=== PATIENT | female | born 1950 | race Caucasian/White ===

== ENCOUNTER 2018-06-18 08:50 | Outpatient (REF) | payer MEDICARE, BC, SELFPAY ==
[2018-06-18 17:17] LABS: Anion Gap 10.8 mmol/L (3-11); BUN 11 mg/dL (7-18); CO2 26.2 mmol/L (21.0-32.0); CREATININE 0.72 mg/dL (0.55-1.02); Chloride 100 mmol/L (98-107); Cholesterol 269 mg/dL (50-200); Glucose 103 mg/dL (70-100); HDL Cholesterol 57 mg/dL (40-60); LDL CHOLESTEROL 189 mg/dL (<100); Potassium 4.3 mmol/L (3.5-5.1); Sodium 137 mmol/L (136-145); Triglyceride 91 mg/dL (30-150)
== END 2018-06-18 09:10 ==
LOC: NCHCN 08:50
PROVIDERS: PCP Internal Medicine; Visit Provider Internal Medicine
DX: E78.5 Hyperlipidemia, unspecified (principal); R73.03 Prediabetes
CPT/HCPCS: 80048; 80061; 83721

== ENCOUNTER 2018-06-30 00:21 | Outpatient (CLI) | payer MEDICARE, BC, SELFPAY ==
--- NOTE | 2018-06-30 09:26 | DI.RAD_ITS ---
SYMPTOMS/DIAGNOSIS: DYSPHAGIA, PHARYNGEAL PHASE, R13.13 BARIUM SWALLOW AND PA AND LATERAL CHEST: Fluoroscopy Time: 1.13 min/sec Routine examination was performed. CHEST X-RAY: Chest x-ray was performed. The heart size and pulmonary vasculature are within normal limits. The lungs appear clear. No effusions or pneumothoraces are identified. Age-appropriate degenerative changes are seen in the spine. IMPRESSION: No acute pulmonary process. BARIUM SWALLOW: Barium swallow was performed according to protocol. No gastroesophageal reflux or aspiration was noted during the examination. There is mild narrowing in the proximal esophagus. This appears to be due to the extrinsic effect of the aortic arch. Note is made of a large hiatal hernia. The hypopharynx appears grossly unremarkable. No ulcers or strictures are seen. No extrinsic masses are identified. IMPRESSION: 1. No evidence of gastroesophageal reflux or aspiration. 2. Mild narrowing in the proximal esophagus due to the mass effect of the aortic arch. 3. Moderately large hiatal hernia.
--- NOTE | 2018-06-30 09:49 | DI.RAD_ITS ---
SYMPTOMS/DIAGNOSIS: LT ANKLE PAIN, M25.572 LEFT ANKLE: Three views. No acute fracture or dislocation is identified. The articular surfaces appear well maintained. The bones are normally mineralized. The soft tissues are unremarkable. There is a small plantar calcaneal spur. IMPRESSION: No acute abnormality.
== END 2018-06-30 00:41 ==
PROVIDERS: PCP Internal Medicine; Visit Provider Internal Medicine
DX: R13.13 Dysphagia, pharyngeal phase (principal); K44.9 Diaphragmatic hernia without obstruction or gangrene; M25.572 Pain in left ankle and joints of left foot; M77.32 Calcaneal spur, left foot
CPT/HCPCS: 73610; 74220

== ENCOUNTER 2019-12-06 13:26 | Outpatient (REF) | payer MEDICARE, BC, SELFPAY ==
[2019-12-06 21:00] LABS: Anion Gap 5.3 mmol/L (3-11); BUN 10 mg/dL (7-18); CO2 30.7 mmol/L (21.0-32.0); CREATININE 0.78 mg/dL (0.55-1.02); Calcium 9.5 mg/dL (8.5-10.1); Chloride 103 mmol/L (98-107); Glucose 82 mg/dL (74-106); Potassium 5.5 mmol/L (3.5-5.1); Sodium 139 mmol/L (136-145)
[2019-12-06 21:31] LABS: Hemoglobin A1C 5.7 % (<5.7)
== END 2019-12-06 13:46 ==
LOC: NCHCN 13:26
PROVIDERS: PCP Internal Medicine; Visit Provider Internal Medicine
DX: R73.03 Prediabetes (principal); E78.5 Hyperlipidemia, unspecified; E66.9 Obesity, unspecified
CPT/HCPCS: 80048; 83036

== ENCOUNTER 2019-12-13 08:04 | Outpatient (REF) | payer MEDICARE, BC, SELFPAY ==
[2019-12-13 21:50] LABS: Potassium 5.3 mmol/L (3.5-5.1)
== END 2019-12-13 08:24 ==
LOC: NCHCN 08:04
PROVIDERS: PCP Internal Medicine; Visit Provider Internal Medicine
DX: R79.9 Abnormal finding of blood chemistry, unspecified (principal)
CPT/HCPCS: 84132

== ENCOUNTER 2020-06-21 11:10 | Outpatient (REF) | payer MEDICARE, BC, SELFPAY ==
[2020-06-21 14:22] LABS: Anion Gap 8.6 mmol/L (3-11); BUN 15 mg/dL (7-18); CO2 27.4 mmol/L (21.0-32.0); CREATININE 0.7 mg/dL (0.55-1.02); Calcium 9.3 mg/dL (8.5-10.1); Chloride 102 mmol/L (98-107); Glucose 97 mg/dL (74-106); Potassium 4.7 mmol/L (3.5-5.1); Sodium 138 mmol/L (136-145)
== END 2020-06-21 11:11 | disposition home or self-care (01) ==
LOC: NCHCN 11:10
PROVIDERS: PCP Internal Medicine; Visit Provider Internal Medicine
DX: E87.5 Hyperkalemia (principal)
CPT/HCPCS: 80048

== ENCOUNTER 2020-11-23 20:25 | Outpatient (CLI) | payer MEDICARE, BC, SELFPAY ==
--- NOTE | 2020-11-23 11:16 | DI.RAD_ITS ---
Exam(s) XR KNEE RT 3V AP,LAT,CROW EXAM: XR KNEE RT 3V AP,LAT,CROW CLINICAL HISTORY: RT JOINT KNEE PAIN M25.561, WEIGHT BEARING TECHNIQUE: COMPARISON: No exams were available for comparison FINDINGS: Three views were obtained. There is moderate narrowing of the medial tibiofemoral cartilaginous join t space. Otherwise cartilaginous joint spaces appear fairly well maintained. There appears to be a small knee joint effusion. There are mild marginal osteophytes of the joints of the knee, most prominent at the medial tibiofemo ral joint. No other significant bony abnormality seen. IMPRESSION: DJD predominantly involving medial tibiofemoral joint. RADIATION DOSE DELIVERED: Total DLP
== END 2020-11-23 20:45 ==
PROVIDERS: PCP Internal Medicine; Visit Provider Family Medicine
DX: M25.561 Pain in right knee (principal); M25.461 Effusion, right knee; M17.11 Unilateral primary osteoarthritis, right knee
CPT/HCPCS: 73562

== ENCOUNTER 2021-09-18 09:12 | Outpatient (REF) | payer MEDICARE, BC, SELFPAY ==
[2021-09-18 15:29] LABS: HCT 43.2 % (36.0-46.0); HGB 13.9 g/dL (11.2-15.7); MCH 29.7 pg (27.0-33.0); MCHC 32.2 % (32.0-36.0); MCV 92 fL (80-95); MPV 9.6 fL (8.0-11.0); Platelet Count 269 10^3/uL (130-400); RBC 4.68 10^6/uL (3.93-5.22); RDW 12.3 % (11.7-14.6); RDW-SD 41.8 fL; WBC 5.45 10^3/uL (4.4-10.8)
[2021-09-18 15:45] LABS: ALT 77 U/L (14-59); AST 24 U/L (15-37); Alkaline Phosphatase 144 U/L (46-116); Anion Gap 3.7 mmol/L (3-11); BUN 15 mg/dL (7-18); Bilirubin, Total 0.5 mg/dL (0.2-1.0); CO2 30.3 mmol/L (21.0-32.0); CREATININE 0.8 mg/dL (0.55-1.02); Calcium 9.6 mg/dL (8.5-10.1); Calculated LDL 181 mg/dL (<100); Chloride 103 mmol/L (98-107); Cholesterol 265 mg/dL (<200); Glucose 100 mg/dL (74-106); HDL Cholesterol 59 mg/dL (40-60); Potassium 5.5 mmol/L (3.5-5.1); Sodium 137 mmol/L (136-145); Total Protein 7.6 g/dL (6.4-8.2); Triglyceride 127 mg/dL (<150)
== END 2021-09-18 09:13 | disposition home or self-care (01) ==
LOC: NCHCN 09:12
PROVIDERS: PCP Family Medicine; Visit Provider Family Medicine
DX: R73.03 Prediabetes (principal); E78.5 Hyperlipidemia, unspecified; E66.9 Obesity, unspecified
CPT/HCPCS: 80053; 80061; 85027

== ENCOUNTER → 2021-10-21 09:25 | Outpatient (BNVA) | payer MEDICARE, BC, SELFPAY | PROVIDERS: PCP Family Medicine; Referring Provider Family Medicine; Visit Provider Student in an Organized Health Care Education/Training Program | DX: R68.89 Other general symptoms and signs (principal); M17.11 Unilateral primary osteoarthritis, right knee | CPT/HCPCS: 99203 ==

== ENCOUNTER 2021-12-03 12:13 | Outpatient (REF) | payer MEDICARE, BC, SELFPAY ==
[2021-12-03 15:00] LABS: Abs Immature Grans 0.02 10^3/uL (0.0-0.06); Absolute Basophil Count 0.05 10^3/uL (0.0-0.2); Absolute Eosinophil Count 0.17 10^3/uL (0.0-0.7); Absolute Lymphocyte Count 1.11 10^3/uL (1.2-3.4); Absolute Monocyte Count 0.42 10^3/uL (0.1-0.8); Absolute Neutrophil Count 5.27 10^3/uL (1.2-6.7); Basophils % 0.7; Eosinophils % 2.4; HCT 43.6 % (36.0-46.0); HGB 14.3 g/dL (11.2-15.7); Immature Grans % 0.3; Lymphocytes % 15.8; MCHC 32.8 % (32.0-36.0); MCV 91 fL (80-95); MPV 9.8 fL (8.0-11.0); Neutrophils % 74.8; Platelet Count 215 10^3/uL (130-400); RBC 4.77 10^6/uL (3.93-5.22); RDW 12.8 % (11.7-14.6); RDW-SD 42.6 fL; WBC 7.04 10^3/uL (4.4-10.8)
[2021-12-03 15:47] LABS: ALT 594 U/L (14-59); AST 310 U/L (15-37); Alkaline Phosphatase 274 U/L (46-116); Anion Gap 9.6 mmol/L (3-11); BUN 11 mg/dL (7-18); Bilirubin, Direct 4.2 mg/dL (0.0-0.2); Bilirubin, Total 5.3 mg/dL (0.2-1.0); CO2 26.4 mmol/L (21.0-32.0); CREATININE 0.7 mg/dL (0.55-1.02); Calcium 9.6 mg/dL (8.5-10.1); Chloride 102 mmol/L (98-107); Estimated GFR 91.26 (mL/min/1.73m2); Glucose 125 mg/dL (74-106); Potassium 4.2 mmol/L (3.5-5.1); Sodium 138 mmol/L (136-145); Total Protein 7.4 g/dL (6.4-8.2)
[2021-12-04 10:46] LABS: Hepatitis A Antibody IgM Negative (Negative); Hepatitis B Core Antibody Negative (Negative); Hepatitis B surface Ag Negative (Negative); Hepatitis C Ab w Rflx HCV PCR Negative (Negative)
== END 2021-12-03 12:14 | disposition home or self-care (01) ==
LOC: LBN 12:13
PROVIDERS: PCP Family Medicine; Visit Provider Family Medicine
DX: R17 Unspecified jaundice (principal); R10.11 Right upper quadrant pain
CPT/HCPCS: 80053; 86704; 86709; 86803; 87340; 82248; 85025

== ENCOUNTER → 2021-12-06 00:40 | Outpatient (CLI) | payer MEDICARE, BC, SELFPAY ==
--- NOTE | 2021-12-06 | DI.US_ITS ---
Exam(s) US ABDOMEN LIMITED EXAM: US ABDOMEN LIMITED CLINICAL HISTORY: RUQ PAIN, JAUNDICE, R10.11,R17,DIARRHEA TECHNIQUE: Ultrasound abdomen performed using standard protocol. COMPARISON: No exams were available for comparison FINDINGS: There is no ascites evident. LIVER: Liver is hyperechoic indicating steatosis. No discrete focal identified GALLBLADDER/BILIARY: There are shadowing gallstones noted. Gallbladder wall thickness slightly incre ased. No pericholecystic evident. The common hepatic duct ismildly dilated, measuring 7-8mm at the level of roberta hepatis. PANCREAS: There is no evidence of pancreatic mass nor dilatation of the pancreatic duct. RIGHT KIDNEY:No evidence of solid mass, calculus, nor hydronephrosis. No cortical cysts evident. IMPRESSION: 1. There is cholelithiasis. Multiple shadowing gallstones noted. Gallbladder wall thickness is min imally prominent. Common hepatic duct is slightly dilated. Recommend follow-up CT scan to ensure th at there are no calculi in the lower CBD. 2. Hepatic steatosis noted. Correlation appropriate hepatic blood work noted. No discrete focal he patic lesions identified. 3. There is no ascites. DATA REPOSITORY:
--- OUTSIDE RECORDS SUMMARY | 2021-12-06 00:46 | XMS_ITS | Encounter Summary ---
:1950 Author Organization [place] [place] [address] Care Team Providers Name Role Phone López Gilliland MD Primary Care Provider Encounter Details Date Type Department Care Team Description 12/22/2018 Office [place] [facility], Gastroesophageal reflux dise ase, esophagitis presence not specified; [facility] Roscoe Ceballos MD [place] [address] [facility] [phone] [place] [address] Social History Tobacco Use Types Packs/Day Years Used Date Former Smoker Smokeless Tobacco: Never Used Comments: quit in 1977 Alcohol Use Standard Drinks/Week Comments Yes 0 (1 standard drink = 0.6 oz pure alcoho l) 5 drinks per weeks Alcohol Habits Answer Date Recorded How often do you have a drink containing alcohol? Not asked How many drinks containing alcohol do you have on a Not aske d typical day when you are drinking? How often do you have six or more drinks on one Not asked occasion? Comment: 5 drinks per weeks 11/23/2018 Sex Assigned at Date Recorded Not on file documented as of this encounter Last Filed Vital Signs Vital Sign Reading Time Taken Comments Blood Pressure 138/68 12/22/2018 8:51 AM EDT Pulse 67 12/22/2018 8:51 AM EDT Temperature - - Respiratory Rate - - Oxygen Saturation - - Inhaled Oxygen Concentration - - Weight 91.4 kg (201 lb 6.4 oz) 12/22/2018 8:51 AM EDT Height 162.6 cm (5' 4) 12/22/2018 8:51 AM EDT Body Mass Index 34.57 12/22/2018 8:51 AM EDT documented in this encounter Progress Notes Rebel Gongora MD - 12/22/2018 9:00 AM EDT HISTORY: Zoraida Arciniega presents for consultation and further evaluation of GERD and Tony's esophagus No history of pyrosis or regurgitation Had some throat gagging sensation which produced an upper endoscopy and barium swallow The barium swallow showed a large hiatal hernia, and impression of the aortic arch on the mid esophagus. She has difficulty with dry food and occasional emesis from swallows, and has gagging at times. Water or liquid swallows help clear her sensation of food not passing No description of aspiration or penetration on the barium study She then had upper endoscopy. This showed long-segment Tony's, in the 12 cm range Biopsies did NOT show dysplasia She had some Dong erosions in the area of the hiatal hernia No change of weight or appetite Never had colonoscopy Has had stool heme testing She was adopted so does not know family history There is no problem list on file for this patient. PHYSICAL EXAM: Most Recent Vitals: 12/22/18 0851 BP: 138/68 Pulse: 67 NAD IMPRESSION: We spent the session discussing the role of treatments of GERD and Tony's. She has not had symptoms, so cannot relate PPI use to any changes. She agrees to stay on acid suppression. We reviewed the evidence of efficacy and safety. We also discussed the potential role of Lorenzo fundoplication. Covered the reasons that endoscopic treatments would not be indicated given the Tony's and the large hiatal hernia. Discussed the rationale for Tony's surveillance. Reviewed current guidelines. Will review with Dr. Corona his concerns on follow-up interval. Will also couple the next upper endoscopy with colonoscopy screening which she has not yet had. We reviewed the role of colonoscopy and she will do this at next endoscopy interval. 30 of 40 minutes spent in direct [id number] counseling and the rest in taking history. PLAN: Upper endoscopy and colonoscopy with IVCS in one year Continue PPIs Rebel Ceballos. 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
--- OUTSIDE RECORDS SUMMARY | 2021-12-06 00:46 | XMS_ITS | Encounter Summary ---
:1950 Author Organization [facility] [place] [address] Care Team Providers Name Role Phone López Gilliland MD Primary Care Provider Encounter Details Date Type Department Care Team Description 06/01/2020 Hospital Encounter Mammography/DXA at L[facility] Gill[facility] Encounter for [facility] MD Ramos screening mammogram [facility] [address] [place] [id number] [phone] Social History Tobacco Use Types Packs/Day Years Used Date Former Smoker Smokeless Tobacco: Never Used Comments: quit in 1977 Alcohol Use Standard Drinks/Week Comments Yes 1 (1 standard drink = 0.6 oz pure alcoho l) Sex Assigned at Date Recorded Not on file documented as of this encounter Medications at Time of Discharge Medication Sig Dispensed Refills Start Date End Date pantoprazole EC (Protonix) Take 1 tablet by 180 tablet 3 40 mg Tablet, Delayed mouth 2 times daily Release (E.C.)Indications: (before meals). Gastroesophageal reflux disease, esophagitis presence not specified ARIPiprazole (ABILIFY) 5 0 12/11/2016 mg Tablet pindolol (VISKEN) 5 mg Take 5 mg by mouth 2 0 Tablet times daily. venlafaxine (EFFEXOR-XR) Take 300 mg by mouth 0 0 12/11/2016 150 mg Capsule, Sust. daily. Release 24 hr fluocinonide (LIDEX) 0.05 Apply to scalp 60 mL 2 2016 % SolutionIndications: nightly for 1-2 Prurigo nodularis weeks. Then 1-2x per week as maintenance if needed. documented as of this encounter Plan of Treatment Not on filedocumented as of this encounter Procedures Procedure Name Priority Date/Time Associated Diagnosis Comme nts MAMMO SCREENING CAD Routine 06/01/2020 10:45 AM Encounter for Results for this AND DELFINO BILATERAL EST screening mammogram pr ocedure are in for breast cancer the result s section. documented in this encounter Results Mammo Screening Cad and Delfino Bilateral (06/01/2020 10:45 AM EST) Anatomical Region Laterality Modality Breast Bilateral Mammography Specimen (Source) Anatomical Location Collection Method / Collectio n Time Received Time / Laterality Volume Narrative 06/01/2020 10:54 AM EST REASON FOR EXAM: Screening. History of left breast cancer. TECHNIQUE: CC and MLO views were obtaine d of both breasts. Computer aided detection was used. 3D tomosynthesis natali ges were obtained in addition to 2D images. Comparison: The study is compared with p emersonr images. FINDINGS: Breast density: The breasts are heteroge neously dense, which may obscure small masses. There are no suspicious microcalcificati ons, masses, or areas of distortion. There are post treatment changes in the left breast. Stable coarse dystrophic calcifications and retained staple noted unchanged. CONCLUSION: No mammographic evidence of malignancy. RECOMMENDATION: Routine screening. BIRADS CATEGORY 2: BENIGN FINDINGS * ??Regular screening mammograms startin g between age 40 and 50 reduces the risk of from breast cancer. * ??All screening tests have both risks and benefits. These risks and benefits should be assessed for each individual p atient through discussion with their provider to determine their preferred [facility] screening schedule. * ??Women should report any breast smart es to a health care provider right away. * ??Some women, because of their family history, a genetic tendency, or other factors, should be screened with annual breast MRI as well as with mammograms. (The number of women who fall into this category is very small). Patients and health care providers should discuss eac h patients history to decide if earlier screening and/or breast MRI are appropri ate. * ??Screening should continue as long as a woman is in good health and is expected to live 10 years or longer. * ??Screening mammography may not detect 10-15% of breast cancers. Thank you for letting us participate in the care of this patient. For questions regarding this report, please contact e number below. ? López Gilliland MD IMG MAMMO ORDERABLES documented in this encounter Visit Diagnoses Diagnosis Encounter for screening mammogram for br east cancer documented in this encounter Care Teams Stonecutter Apprentice Hand Relationship Specialty Start Date End Date López Gilliland MD PCP - General 02/12/10 05/23/21 [address] [place] [address] documented as of this encounter
--- OUTSIDE RECORDS SUMMARY | 2021-12-06 00:46 | XMS_ITS | Encounter Summary ---
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 (last EGD 11/23/2018), screening colonoscopy (IVCS) Procedures PRO UPPER GI ENDOSCOPY, DIAGNOSTIC PRO COLONOSCOPY, DIAGNOSTIC EGD, UPPER GI ENDOSCOPY COLONOSCOPY, DIAGNOSTIC Referral ID Status Reason Start Date Expiration Date Visits Requ ested Visits Authorized [id number] 1 1 Encounter Details Date Type Department Care Team Description 12/27/2019 [place] [facility] Corona, [place]ONOSCOPY, [facility] Roscoe [place] [address] [facility] [phone] [place], [place] [address] Social History Tobacco Use Types Packs/Day Years Used Date Former Smoker Smokeless Tobacco: Never Used Comments: quit in 1977 Alcohol Use Standard Drinks/Week Comments Yes 1 (1 standard drink = 0.6 oz pure alcoho l) Sex Assigned at Date Recorded Not on file documented as of this encounter Last Filed Vital Signs Vital Sign Reading Time Taken Comments Blood Pressure 129/64 12/27/2019 12:00 PM EDT Pulse 63 12/27/2019 12:00 PM EDT Temperature 36.3 ??C (97.3 ??F) 12/27/2019 9:58 AM EDT Respiratory Rate 13 12/27/2019 12:00 PM EDT Oxygen Saturation 95% 12/27/2019 12:00 PM EDT Inhaled Oxygen Concentration - - Weight - - Height - - Body Mass Index - - documented in this encounter Discharge Instructions Discharge InstructionsOscar Laird RN - 12/27/2019 12:34 PM EDT Upper GI Endoscopy: What to Expect at Home Your Recovery You will be able to go home after your doctor or nurse checks to make sure you are not having any problems. You may have to stay overnight if you had treatment during the test. You may have a sore throat for a day or two after the test. This care sheet gives you a general idea about what to expect after the test. How can you care for yourself at home? Activity Rest when you feel tired. ?? You can do your normal activities when it feels okay to do so. Diet ?? Follow your doctor's directions for eating. ?? Unless your doctor has told you not to, drink plenty of fluids. This helps to replace the fluidsthat were lost during the prep. ?? Do not drink alcohol. Medicines ?? Your doctor will tell you if and when you can restart your medicines. He or she will also give you instructions about taking any new medicines. ?? If you take blood thinners, such as warfarin (Coumadin), clopidogrel (Plavix), or aspirin, be sure to talk to your doctor. He or she will tell you if and when to start taking those medicines again.Make sure that you understand exactly what your doctor wants you to do. ?? If polyps were removed or a biopsy was done during the test, your doctor may tell you not to take aspirin or other anti-inflammatory medicines for a few days. These include ibuprofen (Advil, Motrin) and naproxen (Aleve). ?? If you have a sore throat the day after the procedure, use an bfam-qtu-twgbvcz spray to numb yourthroat. Sucking on throat lozenges and gargling with warm salt water may also help relieve your symptoms. Other instructions ?? For your safety, do not drive or operate machinery until the medicine wears off and you can think clearly. Your doctor may tell you not to drive or operate machinery until the day after your test. ?? Do not sign legal documents or make major decisions until the medicine wears off and you can think clearly. The anesthesia can make it hard for you to fully understand what you are agreeing to. Additional Information for Sedation Patients For patients who received sedation: ?? You may have received medications before and/or during your procedure which effects your judgement and reaction time. ?? Do not drive, operate machinery, drink alcoholic beverages or make important decisions for 24 hours. ?? Be careful on stairs as you may be unsteady on your feet. ?? You may eat a regular diet as tolerated. ?? Do not smoke if you are alone. ?? IV site: Slight redness or tenderness is normal, you can use a warm compress if you would like. If tenderness and/or redness increase or if foul drainage occurs, please contact your Doctor. Please call [phone] before 8pm Mon-Fri with problems, questions or concerns. If you call after 8pm or on weekends, call the Hospital at [phone] and ask to speak to the [employer] director of aviation and the slitter and cutter operator will contact that person for you. When should you call for help? Call [phone] anytime you think you may need emergency care. For example, call if: ?? You passed out (lost consciousness). ?? You pass maroon or bloody stools. ?? You have trouble breathing. Call your doctor now or seek immediate medical care if: ?? You have pain that does not get better after you take pain medicine. ?? You are sick to your stomach or cannot drink fluids. ?? You have new or worse belly pain. ?? You have blood in your stools. ?? You have a fever. ?? You cannot pass stools or gas. Watch closely for changes in your health, and be sure to contact your doctor if you have any problems. Where can you learn more? [facility] View your After Visit Summary and more online at [email or web address] If you would like to provide feedback about your hospital experience, please call the Office of Patient and Family Relations at . If you have received this After Visit Summary in error, please immediately return it in person to the department, or notify the [facility] Privacy Office by calling toll free at between the hours of 8AM and 5PM to arrange for our retrieval of the documents at no cost to you. Content Version: 12.2 ?? [id number] [employer]. Care instructions adapted under license by [facility]. If you have questions about a medical condition or this instruction, always ask your healthcare professional. [employer] disclaims any warranty or liability for your use of this information. Colonoscopy: What to Expect at Home Your Recovery Your doctor will talk to you about when you will need your next colonoscopy. Your doctor can help you decide how often you need to be checked. This will depend on the results of your test and your riskfor colorectal cancer. After the test, you may be bloated or have gas pains. You may need to pass gas. If a biopsy was doneor a polyp was removed, you may have streaks of blood in your stool (feces) for a few days. Problemssuch as heavy rectal bleeding may not occur until several weeks after the test. This isn't common. But it can happen after polyps are removed. This care sheet gives you a general idea about how long it will take for you to recover. But each person recovers at a different pace. Follow the steps below to get better as quickly as possible. How can you care for yourself at home? Activity Rest when you feel tired. ?? You can do your normal activities when it feels okay to do so. Diet ?? Follow your doctor's directions for eating. ?? Unless your doctor has told you not to, drink plenty of fluids. This helps to replace the fluidsthat were lost during the colon prep. ?? Do not drink alcohol. Medicines ?? Your doctor will tell you if and when you can restart your medicines. He or she will also give you instructions about taking any new medicines. ?? If you take blood thinners, such as warfarin (Coumadin), clopidogrel (Plavix), or aspirin, be sure to talk to your doctor. He or she will tell you if and when to start taking those medicines again.Make sure that you understand exactly what your doctor wants you to do. ?? If polyps were removed or a biopsy was done during the test, your doctor may tell you not to take aspirin or other anti-inflammatory medicines for a few days. These include ibuprofen (Advil, Motrin) and naproxen (Aleve). Other instructions ?? For your safety, do not drive or operate machinery until the medicine wears off and you can think clearly. Your doctor may tell you not to drive or operate machinery until the day after your test. ?? Do not sign legal documents or make major decisions until the medicine wears off and you can think clearly. The anesthesia can make it hard for you to fully understand what you are agreeing to. Additional Information for Sedation Patients For patients who received sedation: ?? You may have received medications before and/or during your procedure which effects your judgement and reaction time. ?? Do not drive, operate machinery, drink alcoholic beverages or make important decisions for 24 hours. ?? Be careful on stairs as you may be unsteady on your feet. ?? You may eat a regular diet as tolerated. ?? Do not smoke if you are alone. ?? IV site: Slight redness or tenderness is normal, you can use a warm compress if you would like. If tenderness and/or redness increase or if foul drainage occurs, please contact your Doctor. Please call [phone] before 8pm Mon-Fri with problems, questions or concerns. If you call after 8pm or on weekends, call the Hospital at [phone] and ask to speak to the [employer] Professor director of aviation and the slitter and cutter operator will contact that person for you. When should you call for help? Call [phone] anytime you think you may need emergency care. For example, call if: ?? You passed out (lost consciousness). ?? You pass maroon or bloody stools. ?? You have trouble breathing. Call your doctor now or seek immediate medical care if: ?? You have pain that does not get better after you take pain medicine. ?? You are sick to your stomach or cannot drink fluids. ?? You have new or worse belly pain. ?? You have blood in your stools. ?? You have a fever. ?? You cannot pass stools or gas. Watch closely for changes in your health, and be sure to contact your doctor if you have any problems. Where can you learn more? [facility] View your After Visit Summary and more online at [email or web address] If you would like to provide feedback about your hospital experience, please call the Office of Patient and Family Relations at . If you have received this After Visit Summary in error, please immediately return it in person to the department, or notify the [facility] Privacy Office by calling toll free at between the hours of 8AM and 5PM to arrange for our retrieval of the documents at no cost to you. Content Version: 12.2 ?? [id number] [employer]. Care instructions adapted under license by [facility]. If you have questions about a medical condition or this instruction, always ask your healthcare professional. [employer] disclaims any warranty or liability for your use of this information. documented in this encounter Medications at Time of Discharge [...] if needed. documented as of this encounter H&P Notes Oscar Corona MD - 12/27/2019 11:01 AM EDT Patient Name: Zoraida Arciniega Patient Age: 69 y.o. Birthdate: 1950 Admit date: 12/27/2019 Attending Physician: Oscar Corona MD Gastroenterology and Hepatology Pre-Procedure History and Physical Exam Procedure: EGD and colonoscopy Indication: Tony's surveillance and average risk colon cancer screening There is no problem list on file for this patient. EXAM: HEENT: Airway examined, oropharynx clear Mallampati Score: I (soft palate, uvula, fauces, tonsillar pillars visible) LUNGS: Clear to auscultation HEART: Regular rate and rhythm, normal S1, S2 ABDOMEN: Normal bowel sounds, soft, non tender, non distended, A/P Proceed with the planned endoscopic procedure. ASA 1 - Normal health patient Sedation Plan: moderate (conscious sedation) Risks and benefits of the procedure explained to the patient. Consent signed. documented in this encounter Plan of Treatment Not on filedocumented as of this encounter Procedures Procedure Name Priority Date/Time Associated Diagnosis Comme nts SPECIMEN TO Routine 12/27/2019 12:14 Results for this PATHOLOGY PM EDT procedure are i n the results section. SPECIMEN TO Routine 12/27/2019 12:14 Results for this PATHOLOGY PM EDT procedure are i n the results section. SPECIMEN TO Routine 12/27/2019 12:14 Results for this PATHOLOGY PM EDT procedure are i n the results section. SPECIMEN TO Routine 12/27/2019 12:14 Results for this PATHOLOGY PM EDT procedure are i n the results section. SPECIMEN TO Routine 12/27/2019 12:14 Results for this PATHOLOGY PM EDT procedure are i n the results section. SPECIMEN TO Routine 12/27/2019 12:14 Results for this PATHOLOGY PM EDT procedure are i n the results section. SPECIMEN TO Routine 12/27/2019 12:14 Results for this PATHOLOGY PM EDT procedure are i n the results section. SURGICAL PATHOLOGY Routine 12/27/2019 11:56 Resul ts for this REPORT AM EDT procedure are i n the results section. EGD WITH BIOPSY 12/27/2019 11:21 long segment (WRVU 2.49) AM EDT Tony's (last EGD 11/23/2018), screening colonoscopy (IVCS) COLONOSCOPY, 12/27/2019 11:21 long segment DIAGNOSTIC AM EDT Tony's (last EGD 11/23/2018), screening colonoscopy (IVCS) UPPER GI ENDOSCOPY Routine 12/27/2019 11:11 Resul ts for this AM EDT procedure are i n the results section. COLONOSCOPY Routine 12/27/2019 11:11 Results for this AM EDT procedure are i n the results section. documented in this encounter Results Specimen to Pathology (12/27/2019 12:14 PM EDT) Specimen Anatomical Collection Method Collection Time Receive d Time (Source) Location / / Volume Laterality AP Specimen 12/27/2019 12:14 12/27/2019 PM EDT 12:14 PM EDT Narrative [facility] 12/27/2019 12:14 PM EDT Specimen requisition ordered. ??Separate Pathology report to follow Oscar Corona MD PATHOLOGY/CYTOLOGY ORDERABLE S Performing Organization Address City/State/[place] [address] Specimen to Pathology (12/27/2019 12:14 PM EDT) Specimen Anatomical Collection Method Collection Time Receive d Time (Source) Location / / Volume Laterality AP Specimen 12/27/2019 12:14 12/27/2019 PM EDT 12:14 PM EDT Narrative [facility] - 12/27/2019 12:14 PM EDT Specimen requisition ordered. ??Separate Pathology report to follow Oscar Corona MD PATHOLOGY/CYTOLOGY ORDERABLE S Performing Organization Address City/State/[place] [address] Specimen to Pathology (12/27/2019 12:14 PM EDT) Specimen Anatomical Collection Method Collection Time Receive d Time (Source) Location / / Volume Laterality AP Specimen 12/27/2019 12:14 12/27/2019 PM EDT 12:14 PM EDT Narrative [facility] [place] - 12/27/2019 12:14 PM EDT Specimen requisition ordered. ??Separate Pathology report to follow Oscar Corona MD PATHOLOGY/CYTOLOGY ORDERABLE S Performing Organization Address City/State/[place] [address] Specimen to Pathology (12/27/2019 12:14 PM EDT) Specimen Anatomical Collection Method Collection Time Receive d Time (Source) Location / / Volume Laterality AP Specimen 12/27/2019 12:14 12/27/2019 PM EDT 12:14 PM EDT Narrative [facility] - 12/27/2019 12:14 PM EDT Specimen requisition ordered. ??Separate Pathology report to follow Oscar Corona MD PATHOLOGY/CYTOLOGY ORDERABLE S Performing Organization Address City/State/[place] [address] Specimen to Pathology (12/27/2019 12:14 PM EDT) Specimen Anatomical Collection Method Collection Time Receive d Time (Source) Location / / Volume Laterality AP Specimen 12/27/2019 12:14 12/27/2019 PM EDT 12:14 PM EDT Narrative [facility] - 12/27/2019 12:14 PM EDT Specimen requisition ordered. ??Separate Pathology report to follow Oscar Corona MD PATHOLOGY/CYTOLOGY ORDERABLE S Performing Organization Address City/State/[place] [address] Specimen to Pathology (12/27/2019 12:14 PM EDT) Specimen Anatomical Collection Method Collection Time Receive d Time (Source) Location / / Volume Laterality AP Specimen 12/27/2019 12:14 12/27/2019 PM EDT 12:14 PM EDT Narrative [facility] [place] - 12/27/2019 12:14 PM EDT Specimen requisition ordered. ??Separate Pathology report to follow Oscar Corona MD PATHOLOGY/CYTOLOGY ORDERABLE S Performing Organization Address City/State/[place] [address] Specimen to Pathology (12/27/2019 12:14 PM EDT) Specimen Anatomical Collection Method Collection Time Receive d Time (Source) Location / / Volume Laterality AP Specimen 12/27/2019 12:14 12/27/2019 PM EDT 12:14 PM EDT Narrative [facility] - 12/27/2019 12:14 PM EDT Specimen requisition ordered. ??Separate Pathology report to follow Oscar Corona MD PATHOLOGY/CYTOLOGY ORDERABLE S Performing Organization Address City/State/[place] [address] Surgical Pathology Report (12/27/2019 11:56 AM EDT) Component Value Ref Test Analysis Performed At [facility] Range Method Time Signature Surgical [id number] ? Location: 4T; EA09; [facility] Report The signing pathologist has (i) examined the relevant preparation(s) for the [facility] specimen(s) and (ii) rendered or confirmed the diagnosis(es) . H[facility]PITAL LAB[facility]ORY . 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 B - Esophagus at 31-30 cm, biopsy: Tony's esophagus with focal acute inflammation, negative for dysplasia. C - Esophagus at 29-28 cm, biopsy: Tony's esophagus with focal acute inflammation, negative for dysplasia. D - Esophagus at 27-26 cm, biopsy: Tony's esophagus, negative for dysplasia. E - Esophagus at 25-24 cm, biopsy: Tony's esophagus, negative for dysplasia. F - Esophagus at 23-22 cm, biopsy: Tony's esophagus, negative for dysplasia. G - Esophagus at 21 cm, biopsy: Tony's esophagus, negative for dysplasia. Electronically signed by: ??Joseph CANO PhD, Lorelei Verified: ??01/02/2020 ?Pathologist Performed at: ??-[facility] [place]. [place], [place], [place] SPECIMEN(S) SUBMITTED A - esophagus at 33-32 cm, biopsy (Multiple) B - esophagus at 31-30 cm, biopsy (Multiple) C - esophagus at 29-28 cm, biopsy (Multiple) D - esophagus at 27-26 cm, biopsy (Multiple) E - esophagus at 25-24 cm, biopsy (Multiple) F - esophagus at 23-22 cm, biopsy (Multiple) G - esophagus at 21 cm, biopsy (Multiple) CLINICAL INFORMATION EGD long segment Tony's surveillance SPECIMEN PROCESSING A - Labeled/Fixative: Esophagus at 33-32 cm, formalin. Quantity/Size: Two, averaging 0.3 cm. Tissue Description: Soft, red-garcia tissues. Sections/Processing: Submitted en toto ??in 1 cassette labeled A1. B - Labeled/Fixative: Esophagus at 31-30 cm, formalin. Quantity/Size: Four, 0.2-0.3 cm. Tissue Description: Soft, red-garcia tissues. Sections/Processing: Submitted en toto ??in 1 cassette labeled B1. C - Labeled/Fixative: Esophagus at 29-28 cm, formalin. Quantity/Size: Three, and 0.3-0.4 cm. Tissue Description: Soft, red-garcia tissues. Sections/Processing: . SPECIMEN PROCESSING Submitted en toto ??in 1 cassette labeled C1. D - Labeled/Fixative: Esophagus at 27-26 cm, formalin. Quantity/Size: Two, averaging 0.4 cm. Tissue Description: Soft, red-garcia tissues. Sections/Processing: Submitted en toto ??in 1 cassette labeled D1. E - Labeled/Fixative: Esophagus at 25-24 cm, formalin. Quantity/Size: Three, 0.3-0.4 cm. Tissue Description: Soft, red-garcia tissues. Sections/Processing: Submitted en toto ??in 1 cassette labeled E1. F - Labeled/Fixative: Esophagus at 23-22 cm, formalin. Quantity/Size: Single, 0.5 x 0.3 x 0.1 cm. Tissue Description: Soft, red-garcia tissue. Sections/Processing: Submitted en toto ??in 1 cassette labeled F1. G - Labeled/Fixative: Esophagus at 21 cm, formalin. Quantity/Size: Two, 0.3-0.4 cm. Tissue Description: Soft, garcia-pink tissues. Sections/Processing: Submitted en toto ??in 1 cassette labeled G1. ??hmg Specimen (Source) Anatomical Collection Method Collection Time Re ceived Time Location / / Volume Laterality 12/27/2019 11:56 AM EDT Oscar Corona MD PATHOLOGY/CYTOLOGY ORDERABLE S Performing Organization Address City/State/[place] [address] UPPER GI ENDOSCOPY (12/27/2019 11:11 AM EDT) Component Value Ref Test Analysis Performed At [facility] Range Method Time Signature UPPER GI [facility] ENDOSCOPY Endoscopy Procedure Date: 12/27/2019 11:11 AM ? Patient Name: Zoraida Arciniega ? Date of : 1950 ? Age: 69 ? Order #: [id number] ? Instrument Name: [id number] ? Procedure: ? Upper GI endoscopy Indications: ? Surveillance for malignancy due to ? 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 Oscar Corona, Tirso Arias , ? Dianelys PETERS Referring MD: ? Medicines: ? Fentanyl 150 micrograms IV, Midazo green ? 3 mg IV Complications: ? No immediate complications. Procedure: ? Pre-Anesthesia Assessment: ? - See the other procedure not e for ? documentation of the pre-proc edure ? assessment. ? The procedure, indications, b enefits, ? risks and alternatives were e xplained ? to the patient. Specifically ? discussed were potential ? complications including, but not ? limited to, bleeding, perfora tion, ? infection, missing a cancer, and ? adverse medication reactions. The ? Endoscope was introduced thro ugh the ? mouth, and advanced to the. T he ? patient tolerated the procedu re well. ? The upper GI endoscopy was ? accomplished without difficul ty. The ? patient tolerated the procedu re well. ? Findings: ? Esophagogastric landmarks were identified: the Z-line ? was found at 21 cm, the gastroesophageal junction was ? found at 33 cm and the site of hiatal narrowing was ? found at 37 cm from the incisors. ? The esophagus and gastroesophageal junction were ? examined with white light and NBI. There were ? esophageal mucosal changes consistent with long ? segment Tony's - classified as Tony's stage ? C8-M12 per [place] criteria. These changes involved ? the mucosa extending to the Z-line. Mucosa was ? biopsied with a cold forceps for histology in 4 ? quadrants at intervals of 2 cm. ? 4 cm hiatal hernia ? The entire examined stomach was normal. ? The examined duodenum was normal. ? Moderate Sedation: ? I was present during the intraservice time as ? documented by the sedation RN. Impression: ?- Esophagogastric landmarks ? identified. ? - Esophageal mucosal changes ? classified as Tony's stage C8-M12 ? per [place] criteria. Biopsied . ? - Normal stomach. ? - Normal examined duodenum. Recommendation: ?Colonoscopy next. ? Attending Participation: ? I personally performed the entire procedure. ? Oscar Corona Oscar Corona, 12/27/2019 11:54:32 AM Number of Addenda: 0 Note Initiated On: 12/27/2019 11:11 AM Specimen (Source) Anatomical Collection Method Collection Time Re ceived Time Location / / Volume Laterality 12/27/2019 11:11 AM EDT Unknown GENERAL SURGICAL ORDERABLES Performing Organization Address City/State/ZIP Code Phon e Number [facility] COLONOSCOPY (12/27/2019 11:11 AM EDT) [facility] gist Method Time Signature COLONOSCOPY [facility] Endoscopy Procedure Date: 12/27/2019 11:11 AM ? Patient Name: Zoraida Arciniega ? Date of : 1950 ? Age: 69 ? Order #: [id number] ? Instrument Name: [id number] ? Procedure: ? Colonoscopy Indications: ? Screening for colorectal malignant ? neoplasm Providers: ? Oscar Corona, Tirso Arias , ? FRAN, Dianelys Damon Referring MD: ? Medicines: ? Midazolam 1 mg IV, Fentanyl 100 ? micrograms IV Complications: ? No immediate complications. Procedure: ? Pre-Anesthesia Assessment: ? - See the other procedure not e for ? documentation of the pre-proc edure ? assessment. ? The procedure, indications, b enefits, ? risks and alternatives were e xplained ? to the patient. Specifically ? discussed were potential ? complications including, but not ? limited to, bleeding, perfora tion, ? infection, missing a cancer, and ? adverse medication reactions. The ? patient was placed in the lef t ? lateral decubitus position, a nd a ? digital rectal exam was perfo rmed. ? The Colonoscope was inserted in the ? anus and under direct visuali zation, ? advanced to the cecum, identi fied by ? appendiceal orifice and ileoc ecal ? valve. Careful inspection was made as ? the colonoscope was withdrawn . The ? colonoscopy was performed wit hout ? difficulty. The patient sophy ated the ? procedure well. The quality o f the ? bowel preparation was evaluat ed using ? the BBPS ([place] Bowel Prepar ation ? Scale) with scores of: Right Colon = ? 3, Transverse Colon = 3 and L eft ? Colon = 3 (entire mucosa seen well ? with no residual staining, sm all ? fragments of stool or opaque liquid). ? The total BBPS score equals 9 . ? Withdrawal time was 7 minutes . ? Findings: ? The colon (entire examined portion) appeared normal. ? The retroflexed view of the distal rectum and anal ? verge was normal and showed no anal or rectal ? abnormalities. ? Moderate Sedation: ? I was present during the intraservice time as ? documented by the sedation RN. Impression: ?- The entire examined colon is nor mal. ? - The distal rectum and anal verge ? are normal on retroflexion vi ew. ? - No specimens collected. Recommendation: ?- Discharge patient to home. ? - Patient has a contact numbe r ? available for emergencies. Th e signs ? and symptoms of potential del ayed ? complications were discussed with the ? patient. Return to normal act ivities ? tomorrow. Written discharge ? instructions were provided to the ? patient. ? - Full liquid diet today give n ? extensive esophageal biopsies ? - I will arrange follow-up ? - Repeat colonoscopy in 10 ye ars if ? appropriate based on overall health. ? Attending Participation: ? I personally performed the entire procedure. ? Oscar Corona Oscar Corona, 12/27/2019 12:23:23 PM Number of Addenda: 0 Note Initiated On: 12/27/2019 11:11 AM Specimen (Source) Anatomical Collection Method Collection Time Re ceived Time Location / / Volume Laterality 12/27/2019 11:11 AM EDT Unknown GENERAL SURGICAL ORDERABLES Performing Organization Address City/State/ZIP Code Phon e Number PROVATION documented in this encounter Visit Diagnoses Not on filedocumented in this encounter Administered Medications Inactive Administered Medications - up to 3 most recent administrations Medication Order MAR Action Action Date Dose Rate Site fentaNYL 50 mcg/mL multi-dose Given 12/27/2019 12:02 PM EDT 50 m cg injection ONCE PRN, Starting on 10/6/20 at 1123, Until 12/27/19 at 1520, Intra-Operative (Intra-Procedure), Routine Given 12/27/2019 11:51 AM EDT 50 mcg Given 12/27/2019 11:29 AM EDT 50 mcg lactated ringers infusion New Bag 12/27/2019 10:08 AM EDT 100 mL/hr 100 mL/hr 100 mL/hr, Intravenous, CONTINUOUS, Starting on 12/27/19 at 1015, Until 12/27/19 at 1320, Endoscopy (Day of Procedure) midazolam (PF) (VERSED) multi-dose injec tion Given 12/27/2019 11:51 AM EDT 1 mg ONCE PRN, Starting on 12/27/19 at 1123, Until 12/27/19 at 1520, Intra-Operative (Intra-Procedure), Routine Given 12/27/2019 11:29 AM EDT 1 mg Given 12/27/2019 11:26 AM EDT 1 mg documented in this encounter Active and Recently Administered Medications Times are shown in EDT. Continuous Medication Order 12/25/2019 12/26/2019 12/27/2019 lactated ringers infusion (CANCELED) 1008 (New Bag - Provider: Donnell Lamb RN) 100 mL/hr, at 100 mL/hr, Intravenous, CO NTINUOUS, Starting 12/27/19 at 1015, Until 12/27/19 at 1320, Endo (Day of Procedure) PRN Medication Order 12/25/2019 12/26/2019 12/27/2019 fentaNYL 50 mcg/mL multi-dose injection (CANCELED) 1123 (Given - Provider: Tirso Arias RN - Comment: start moderate sedation)1126 (Given - Provider: Tirso Arias RN - Comment: awake and alert after 1st dose and 3 minutes)1129 (Given - Provider: Tirso Arias RN - Comment: sleepy but awake) ONCE PRN, Starting 12/27/19 at 1123, Until 12/27/19 at 1520, Intra- Operative (Intra-Procedure), Routine 115 1 (Given - Provider: Tirso Arias RN - Comment: given in preparation of colonoscopy)1202 (Given - Provider: Tirso Arias RN - Comment: grimmace and startled awake by cramp) midazolam (PF) (VERSED) multi-dose injection (CANCELED) 1123 (Given - Provider: Tirso Arias RN - Comment: see fentanyl same time)1126 (Given - Provider: Tirso Arias RN - Comment: see fentanyl same time)1129 (Given - Provider: Tirso Arias RN - Comment: see fentanyl same time) ONCE PRN, Starting 12/27/19 at 1123, Until Thu12/27/19 at 1520, Intra- Operative (Intra-Procedure), Routine 115 1 (Given - Provider: Tirso Arias RN - Comment: see fentanyl same time) documented in this encounter Care Teams Scratcher Relationship Specialty Start Date End Date López Gilliland MD PCP - General 02/12/10 05/23/[address] [id number] documented as of this encounter
--- OUTSIDE RECORDS SUMMARY | 2021-12-06 00:46 | XMS_ITS | Encounter Summary ---
:1950 Author Organization [facility] Address [facility] [place] [address] Care Team Providers Name Role Phone López Gilliland MD Primary Care Provider Reason for Visit Auth/Cert Specialty Diagnoses / Procedures Referred By Contact Refer red To Contact Diagnoses Dysphagia dysphagia Procedures PRO UPPER GI ENDOSCOPY, DIAGNOSTIC EGD, UPPER GI ENDOSCOPY Referral ID Status Reason Start Date Expiration Date Visits Requ ested Visits Authorized [id number] 1 1 Encounter Details Date Type Department Care Team Description 11/23/2018 Surgery G[facility]ology at [place] Oscar Corona, EGD, UPPER GI [facility] [place]coe [place] [address] [facility] [phone] [place], [place] [address] Social History Tobacco Use Types [...] Sign Reading Time Taken Comments Blood Pressure 137/110 11/23/2018 10:00 AM EDT Pulse 74 11/23/2018 9:45 AM EDT Temperature 37.4 ??C (99.3 ??F) 11/23/2018 8:23 AM EDT Respiratory Rate 16 11/23/2018 10:00 AM EDT Oxygen Saturation 94% 11/23/2018 10:00 AM EDT Inhaled Oxygen Concentration - - Weight - - Height - - Body Mass Index - - documented in this encounter Discharge Instructions Discharge InstructionsNay Mir RN - 11/23/2018 9:56 AM EDT UPPER GI ENDOSCOPY WHAT TO EXPECT AFTER THE PROCEDURE After the test you may feel a little more gassy or bloated than usual, this is normal. ACTIVITY Because of the sedation that you received Your judgement and reaction time are affected ?? Go home and rest quietly for the remainder of the day. You may resume your normal activities tomorrow. ?? Change from one position to the next slowly. You may lose your balance unexpectedly Be careful on stairs, as you may be unsteady on your feet. FOR THE NEXT 24 HRS ?? DO NOT DRIVE OR OPERATE ANY MACHINERY ?? DO NOT DRINK ALCOHOLIC BEVERAGES ?? DO NOT SIGN LEGAL DOCUMENTS ?? If you are a smoker: DO NOT SMOKE WHILE YOU ARE ALONE Diet ?? Start by eating small portions of foods that ordinarily will not upset your stomach. Be gentle with what you choose to start with. ?? Drink plenty of fluids ( unless otherwise told not to) Medications You may have a mild sore throat. Ice chips, popsicles, over the counter throat lozenges or spray may help numb your throat. This procedure should not cause a fever. IV SITE-- slight redness or tenderness is normal, you can use warm compresses if you get concerned.If the tenderness +/or redness increases or foul drainage and a red streak occurs, please contact your PCP immediately. WHEN SHOULD YOU CALL FOR HELP? Call 911 anytime you think that you need emergency care. For example, call if: You passed out (lost consciousness). You cough up blood. You vomit blood or what looks like coffee grounds. You pass maroon or very bloody stools. Call your healthcare provider or seek immediate medical attention if: You have trouble swallowing. You have belly pain. Your stools are black or tarlike or have streaks of blood. You are sick to your stomach or cannot keep fluids down. Watch closely for changes in your health, and be sure to contact your doctor IF Your throat still hurts after a day or two You do not get better as expected. Thursday-Thursday Same Day Endo [phone] 7a-8p Otherwise contact [phone] and ask to speak to the youth ministry director slot machine key person Follow-up care is a torre part of your treatment and safety. Be sure to make and go to all appointments, and call your doctor if you are having problems. Instructions have been reviewed and patient expresses understanding documented in this encounter Medications at Time of Discharge Medication Sig Dispensed Refills Start Date End Date ARIPiprazole (ABILIFY) 0 12/11/2016 5 mg Tablet pindolol (VISKEN) 5 mg Take 5 mg by mouth 2 0 Tablet times daily. venlafaxine Take 300 mg by mouth 0 12/11/2016 (EFFEXOR-XR) 150 mg daily. Capsule, Sust. Release 24 hr fluocinonide (LIDEX) Apply to scalp 60 mL 2 12/24/2016 0.05 % nightly for 1-2 SolutionIndications: weeks. Then 1-2x per Prurigo nodularis week as maintenance if needed. pantoprazole (PROTONIX) Take 1 tablet by 180 tablet 3 201811/14/2019 40 mg Tablet, Delayed mouth 2 times daily Release (E.C.) (before meals). omeprazole (PRILOSEC) Take 20 mg by mouth 0 09/2712/27/2019 20 mg Capsule, Delayed as needed. Release(E.C.) fish oil-omega-3 fatty Take 2 g by mouth 0 12/27/2019 acids 1,000 mg Capsule daily. CIS Free Text Med - 0 06/26/200512/26 Baby ASA (aspirin) CIS Free Text Med - 0 06/26/200512/26 Effexor documented as of this encounter H&P Notes Oscar Corona MD - 11/23/2018 9:14 AM EDT Patient Name: Zoraida Arciniega Patient Age: 68 y.o. Birthdate: 1950 Admit date: 11/23/2018 Attending Physician: Oscar Corona MD Gastroenterology and Hepatology Pre-Procedure History and Physical Exam Procedure: EGD: Indication: Dysphagia. There is no problem list on file for this patient. EXAM: HEENT: Airway examined, oropharynx clear Mallampati Score: II (soft palate, uvula, fauces visible) LUNGS: Clear to auscultation HEART: Regular [...] encounter Procedures Procedure Name Priority Date/Time Associated Comments Diagnosis SURGICAL PATHOLOGY Routine 11/23/2018 9:47 Result s for this REPORT AM EDT procedure are i n the results section. SPECIMEN TO PATHOLOGY Routine 11/23/2018 9:47 Res ults for this AM EDT procedure are i n the results section. SPECIMEN TO PATHOLOGY Routine 11/23/2018 9:47 Res ults for this AM EDT procedure are i n the results section. SPECIMEN TO PATHOLOGY Routine 11/23/2018 9:47 Res ults for this AM EDT procedure are i n the results section. SPECIMEN TO PATHOLOGY Routine 11/23/2018 9:47 Res ults for this AM EDT procedure are i n the results section. SPECIMEN TO PATHOLOGY Routine 11/23/2018 9:47 Res ults for this AM EDT procedure are i n the results section. SPECIMEN TO PATHOLOGY Routine 11/23/2018 9:47 Res ults for this AM EDT procedure are i n the results section. SPECIMEN TO PATHOLOGY Routine 11/23/2018 9:47 Res ults for this AM EDT procedure are i n the results section. SPECIMEN TO PATHOLOGY Routine 11/23/2018 9:47 Res ults for this AM EDT procedure are i n the results section. UPPER GASTROINTESTINAL 11/23/2018 9:17 Esophageal ENDOSCOPY,WITH BIOPSY AM EDT dysphagia SINGLE OR MULTIPLE (WRVU 2.49) EGD, UPPER GI ENDOSCOPY 11/23/2018 9:17 Esophageal AM EDT dysphagia UPPER GI ENDOSCOPY Routine 11/23/2018 9:12 Result s for this AM EDT procedure are i n the results section. documented in this encounter Results Surgical Pathology Report (11/23/2018 9:47 AM EDT) Component Value Ref Test Analysis Performed At [facility] gist Range Method Time Signature Surgical [id number] ? Location: 4T; EA06; [facility] Pathology ISABELLA Report The signing pathologist has (i) examined the relevant preparation(s) for the [facility] specimen(s) and (ii) rendered or confirmed the diagnosis(es) . H[facility] . ?Surgic al Pathology DIAGNOSIS A - Esophageal, 33-31 cm, biopsy: Columnar mucosa with metapla stic goblet cells, consistent with specialized Wheeler's metaplasia if supported by corresponding endoscopic finding s. No dysplasia is seen. B - Stomach, biopsy: Gastric antral and fundic gland mucosa within normal limits. No H. pylori-like microorganism is seen. C - Stomach, erosion, biopsy: Gastric fundic mucosa with focal erosion. D - Esophagus 31-29 cm, biopsy: Columnar mucosa with metapla stic goblet cells, consistent with specialized Wheeler's metaplasia if supported by corresponding endoscopic finding s. No dysplasia is seen. E - Esophagus 29-27 cm, biopsy: Columnar mucosa with metapla stic goblet cells, consistent with specialized Wheeler's metaplasia if supported by corresponding endoscopic finding s. No dysplasia is seen. F - Esophagus 27-25 cm, biopsy: Columnar mucosa with metapla stic goblet cells, consistent with specialized Wheeler's metaplasia if supported by corresponding endoscopic finding s. No dysplasia is seen. Additional levels examined. G - Esophagus 25-23 cm, biopsy: Squamous esophageal and spec ialized metaplastic columnar mucosa consistent with specialized Wheeler metapla ariadna if supported by corresponding endoscopic findings. No dysplasia is seen. Additional levels examined. H - Esophagus 23-21 cm, biopsy: Columnar mucosa with ulcerat ion, granulation tissue, fibrinopurulent exudate and bacterial colonization. Columnar mucosa with metaplastic goblet cells, no dysplasia is seen. Squamous esophageal mucosa with hyperplastic basal layer and scattered intraepithelial eosinophils, suggestive of reflux esophagit is. Electronically signed by: ??Minerva Wilson MD Verified: ??11/25/2018 ?Pathologist Performed at: ??[facility], [place], [place] CLINICAL INFORMATION Specimen Submitted: A - Esophagel bx, 33-31cm ? wheeler's, 4 B - Gastric bx r/o h pylori,3 C - Gastric bx for dong erosin,2 D - Esophagel bx 31-29cm,4 E - Esophageal bx 29-27cm,4 F - Esophageal bx 27-25cm,4 . CLINICAL INFORMATION G - Esophageal bx 25-23cm,3 H - Esophageal bx 23-21cm,3 Clinical History and Diagnosis: 68-year-old female with history of dysphagia SPECIMEN PROCESSING A - Labeled/Fixative: Esophageal BX 33-31 cm question Eder t's, formalin. Quantity/Size: Two, averaging 0.3 cm. Tissue Description: Soft, pink-red tissues. Sections/Processing: Submitted en toto ??in 1 cassette labeled A1. B - Labeled/Fixative: Gastric BX R/O H pylori, formalin. Quantity/Size: Two, averaging 0.4 cm. Tissue Description: Soft, pink tissues. Sections/Processing: Submitted en toto ??in 1 cassette labeled B1. C - Labeled/Fixative: Gastric BX for Dong erosion, formal in. Quantity/Size: Two, averaging 0.3 cm. Tissue Description: Soft, garcia tissues. Sections/Processing: Submitted en toto ??in 1 cassette labeled C1. D - Labeled/Fixative: Esophageal BX 31-29 cm, formalin. Quantity/Size: Three, averaging 0.3 cm. Tissue Description: Soft, red tissues. Sections/Processing: Submitted en toto ??in 1 cassette labeled D1. E - Labeled/Fixative: Esophageal BX 29-27 cm, formalin. Quantity/Size: Four, averaging 0.2 cm. Tissue Description: Soft, pink tissues. Sections/Processing: Submitted en toto ??in 1 cassette labeled E1. F - Labeled/Fixative: Esophageal BX 27-25 cm, formalin. Quantity/Size: Four, averaging 0.2 cm. Tissue Description: Soft, pink-red tissues. Sections/Processing: Submitted en toto ??in 1 cassette labeled F1. G - Labeled/Fixative: Esophageal BX 25-23 cm, formalin. Quantity/Size: Two, averaging 0.3 cm. Tissue Description: Soft, pink-red tissues. Sections/Processing: Submitted en toto ??in 1 cassette labeled G1. H - Labeled/Fixative: Esophageal BX 23-21 cm, formalin. Quantity/Size: Four, averaging 0.2 cm. Tissue Description: Soft, pink-white tissues. Sections/Processing: Submitted en toto ??in 1 cassette labeled H1. ??sns Specimen (Source) Anatomical Collection Method Collection Time Re ceived Time Location / / Volume Laterality 11/23/2018 9:47 AM EDT Oscar Corona MD PATHOLOGY/CYTOLOGY ORDERABLE S Performing Organization Address City/[facility] [place] [id number] Specimen to Pathology (11/23/2018 9:47 AM EDT) Specimen Anatomical Collection Method Collection Time Receive d Time (Source) Location / / Volume Laterality AP Specimen 11/23/2018 9:47 AM 9 EDT 11:39 AM EDT Narrative [facility] - 11/23/2018 11:39 AM EDT Specimen requisition ordered. ??Separate Pathology report to follow Resulting Agency Comment Spec In Lab Oscar Corona MD PATHOLOGY/CYTOLOGY ORDERABLE S Performing Organization Address City/[facility]/[place] [id number] Specimen to Pathology (11/23/2018 9:47 AM EDT) Specimen Anatomical Collection Method Collection Time Receive d Time (Source) Location / / Volume Laterality AP Specimen 11/23/2018 9:47 AM 9 EDT 11:39 AM EDT Narrative [facility] - 11/23/2018 11:39 AM EDT Specimen requisition ordered. ??Separate Pathology report to follow Resulting Agency Comment Spec In Lab Oscar Corona MD PATHOLOGY/CYTOLOGY ORDERABLE S Performing Organization Address City/[facility]/[place] [id number] Specimen to Pathology (11/23/2018 9:47 AM EDT) Specimen Anatomical Collection Method Collection Time Receive d Time (Source) Location / / Volume Laterality AP Specimen 11/23/2018 9:47 AM 9 EDT 11:39 AM EDT Narrative [facility] [place] 11/23/2018 11:39 AM EDT Specimen requisition ordered. ??Separate Pathology report to follow Resulting Agency Comment Spec In Lab Oscar Corona MD PATHOLOGY/CYTOLOGY ORDERABLE S Performing Organization Address City/[facility]/[place] [id number] Specimen to Pathology (11/23/2018 9:47 AM EDT) Specimen Anatomical Collection Method Collection Time Receive d Time (Source) Location / / Volume Laterality AP Specimen 11/23/2018 9:47 AM 9 EDT 11:39 AM EDT Narrative [facility] [place] 11/23/2018 11:39 AM EDT Specimen requisition ordered. ??Separate Pathology report to follow Resulting Agency Comment Spec In Lab Oscar Corona MD PATHOLOGY/CYTOLOGY ORDERABLE S Performing Organization Address City/[facility] [place] [id number] Specimen to Pathology (11/23/2018 9:47 AM EDT) Specimen Anatomical Collection Method Collection Time Receive d Time (Source) Location / / Volume Laterality AP Specimen 11/23/2018 9:47 AM 9 EDT 11:39 AM EDT Narrative [facility] [place] 11/23/2018 11:39 AM EDT Specimen requisition ordered. ??Separate Pathology report to follow Resulting Agency Comment Spec In Lab Oscar Corona MD PATHOLOGY/CYTOLOGY ORDERABLE S Performing Organization Address City/[facility]/[place] [id number] Specimen to Pathology (11/23/2018 9:47 AM EDT) Specimen Anatomical Collection Method Collection Time Receive d Time (Source) Location / / Volume Laterality AP Specimen 11/23/2018 9:47 AM 9 EDT 11:39 AM EDT Narrative [facility] [place] 11/23/2018 11:39 AM EDT Specimen requisition ordered. ??Separate Pathology report to follow Resulting Agency Comment Spec In Lab Oscar Corona MD PATHOLOGY/CYTOLOGY ORDERABLE S Performing Organization Address City/[facility]/[place] [id number] Specimen to Pathology (11/23/2018 9:47 AM EDT) Specimen Anatomical Collection Method Collection Time Receive d Time (Source) Location / / Volume Laterality AP Specimen 11/23/2018 9:47 AM 9 EDT 11:39 AM EDT Narrative [facility] [place] 11/23/2018 11:39 AM EDT Specimen requisition ordered. ??Separate Pathology report to follow Resulting Agency Comment Spec In Lab sOcar Corona MD PATHOLOGY/CYTOLOGY ORDERABLE S Performing Organization Address City/[facility]/[place] [id number] Specimen to Pathology (11/23/2018 9:47 AM EDT) Specimen Anatomical Collection Method Collection Time Receive d Time (Source) Location / / Volume Laterality AP Specimen 11/23/2018 9:47 AM 9 EDT 11:39 AM EDT Narrative [facility] - 11/23/2018 11:39 AM EDT Specimen requisition ordered. ??Separate Pathology report to follow Resulting Agency Comment Spec In Lab Oscar Corona MD PATHOLOGY/CYTOLOGY ORDERABLE S Performing Organization Address City/[facility]/[place] [id number] UPPER GI ENDOSCOPY (11/23/2018 9:12 AM EDT) [facility] Method Time Signature UPPER GI [facility] ENDOSCOPY Endoscopy Procedure Date: 11/23/2018 9:12 AM ? Patient Name: Zoraida Arciniega ? Date of : 1950 ? Age: 68 ? Order #: [id number] ? Instrument Name: [id number] ? Procedure: ? Upper GI endoscopy Indications: ? Dysphagia Providers: ? Razia Chin , ? RN, Nazia Helms Referring : ?López Gilliland MD Medicines: ? Midazolam 3 mg IV, Fentanyl 150 ? micrograms IV Complications: ? No immediate [...] ugh the ? mouth, and advanced to the se cond ? part of duodenum. The patient ? tolerated the procedure well. The ? upper GI endoscopy was accomp lished ? without difficulty. The patie nt ? tolerated the procedure well. ? Findings: ? Wheeler's esophagus was present in the mid esophagus. ? The maximum longitudinal extent of these mucosal ? changes was 12 cm in length. (C12M12) (spanned 33cm ? to 21 cm). Mucosa was biopsied with a cold forceps ? for histology in 4 quadrants at intervals of 2 cm. ? Estimated blood loss was minimal. ? Fundic erosion in stomach adjacent to 2 cm hiatal ? hernia - biopsies taken of lesion and randomly to ? look for H.pylori. ? Moderate Sedation: ? I was present during the intraservice time as ? documented by the sedation RN. Impression: ?- Long-segment Wheeler's esophagus . ? Biopsied. ? 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 ? - Start Pantoprazole 40 mg OD ? - Return to [facility] with Tr bev ? Hilda AVENDANO ? - I will contact you with bio psies ? results ? - Depending on results you wi ll be ? scheduled for a repeat EGD wi th me ? Attending Participation: ? I personally performed the entire procedure. ? Oscar Corona Oscar Corona, 11/23/2018 9:54:32 AM Number of Addenda: 2 Note Initiated On: 11/23/2018 9:12 AM Addendum Number: 1 ?? Addendum Date: 11/23/2018 10:10:36 AM ? Oscar Corona Oscar Corona, 11/23/2018 10:10:45 AM Addendum Number: 2 ?? Addendum Date: 11/23/2018 10:10:55 AM ? SimonBill Corona Oscar Grant Cj, 11/23/2018 10:11:01 AM Specimen (Source) Anatomical Collection Method Collection Time Re ceived Time Location / / Volume Laterality 11/23/2018 9:12 AM EDT López Gilliland MD GENERAL SURGICAL ORDERABLES Performing Organization Address City/State/ZIP Code Phon e Number [facility] documented in this encounter Visit Diagnoses Diagnosis Esophageal dysphagia Dysphagia, pharyngoesophageal phase documented in this encounter Administered Medications Inactive Administered Medications - up to 3 most recent administrations Medication Order MAR Action Action Date Dose Rate Site fentaNYL 50 mcg/mL multi-dose Given 11/23/2018 9:26 AM EDT 50 mc g injection ONCE PRN, Starting on 11/23/18 at 0920, Until Thu11/23/18 at 1227, Intra-Operative (Intra-Procedure), Routine Given 11/23/2018 9:23 AM EDT 50 mcg Given 11/23/2018 9:20 AM EDT 50 mcg midazolam (PF) (VERSED) multi-dose injec tion Given 11/23/2018 9:26 AM EDT 1 mg ONCE PRN, Starting on Thu11/23/18 at 0920, Until Thu11/23/18 at 1227, Intra-Operative (Intra-Procedure), Routine Given 11/23/2018 9:23 AM EDT 1 mg Given 11/23/2018 9:20 AM EDT 1 mg documented in this encounter Active and Recently Administered Medications Times are shown in EDT. PRN Medication Order 11/21/2018 11/22/2018 11/23/2018 fentaNYL 50 mcg/mL multi-dose injection (CANCELED) 0920 (Given - Provider: Razia Whitlock RN)0923 (Given - Provider: Razia Whitlock RN)0926 (Given - Provider: Razia Whitlock, FRAN) ONCE PRN, Starting 11/23/18 at 0920, U ntil 11/23/18 at 1227, Intra-Operative (Intra-Procedure), Routine midazolam (PF) (VERSED) multi-dose injection (CANCELED) 0920 (Given - Provider: Razia Whitlock, RN)0923 (Given - Provider: Razia Whitlock, RN)09 (Given - Provider: Razia Whitlock RN) ONCE PRN, Starting 11/23/18 at 0920, U ntil 11/23/18 at 1227, Intra-Operative (Intra-Procedure), Routine documented in this encounter Care Teams Petroleum Geologist Relationship Specialty Start Date End Date López Gilliland MD PCP - General 02/12/10 05/23/21 [address] [place] [address] documented as of this encounter
--- OUTSIDE RECORDS SUMMARY | 2021-12-06 00:46 | XMS_ITS | Encounter Summary ---
:1950 Author Organization [facility] [place] [address] Care Team Providers Name Role Phone López [...] Expiration Date Visits Requ ested Visits Authorized [id number] 1 1 Encounter Details Date Type Department Care Team Description 12/27/2019 Hospital Encounter Gastroenterology at [facility] [place] [address] [place] [address] [place] [address] Social History Tobacco Use Types Packs/Day Years Used Date Former Smoker Smokeless Tobacco: Never Used Comments: quit in 1977 Alcohol Use Standard Drinks/Week Comments Yes 1 (1 standard drink = 0.6 oz pure alcoho l) Sex Assigned at Date Recorded Not on file documented as of this encounter Last Filed Vital Signs Vital Sign Reading Time Taken Comments Blood Pressure 126/65 12/27/2019 12:50 PM EDT Pulse 70 12/27/2019 12:24 PM EDT Temperature 36.3 ??C (97.3 ??F) 12/27/2019 9:58 AM EDT Respiratory Rate 16 12/27/2019 12:50 PM EDT Oxygen Saturation 96% 12/27/2019 12:55 PM EDT Inhaled Oxygen Concentration - - [...] the day after the procedure, use an cqve-rym-xwzimkx spray to numb yourthroat. Sucking on throat [...] occurs, please contact your Doctor. Please call [phone] before 8pm Mon-Fri with problems, questions or concerns. If you call after 8pm or on weekends, call the Hospital at [phone] and ask to speak to the It Support Technician ion exchange operator and the spooler operator will contact that person for you. When should you call for help? Call [phone] anytime you think you may need emergency [...] any problems. Where can you learn more? [facility] View your After Visit Summary and more online at [email or web address] If you would like to provide feedback about your hospital experience, please call the Office of Patient and Family Relations at . If you have received this After Visit Summary in error, please immediately return it in person to the department, or notify the [facility] Privacy Office by calling toll free at between the hours of 8AM and 5PM to arrange for our retrieval of the documents at no cost to you. Content Version: 12.2 ?? 4233-7586 [employer]. Care instructions adapted under license by [facility]. If you have questions about a medical condition or this instruction, always ask your healthcare professional. [employer] disclaims any warranty or liability for your [...] occurs, please contact your Doctor. Please call [phone] before 8pm Mon-Fri with problems, questions or concerns. If you call after 8pm or on weekends, call the Hospital at [phone] and ask to speak to the It Support Technician ion exchange operator and the spooler operator will contact that person for you. When should you call for help? Call [phone] anytime you think you may need emergency [...] any problems. Where can you learn more? [email or web address] View your After Visit Summary and more online at [email or web address] If you would like to provide [...] cost to you. Content Version: 12.2 ?? 2734-9826 [employer]. Care instructions adapted under license by [facility]. If you have questions about a medical condition or this instruction, always ask your healthcare professional. [employer] disclaims any warranty or liability for your [...] 12/27/2019 PM EDT 12:14 PM EDT Narrative [facility] - 12/27/2019 12:14 PM EDT Specimen requisition ordered. ??Separate Pathology report to follow Oscar Corona MD PATHOLOGY/CYTOLOGY ORDERABLE S Performing Organization Address City/State/[place] [address] Specimen to Pathology (12/27/2019 12:14 PM EDT) Specimen Anatomical Collection Method Collection Time Receive d Time (Source) Location / / Volume Laterality AP Specimen 12/27/2019 12:14 12/27/2019 PM EDT 12:14 PM EDT Narrative [facility] - 12/27/2019 12:14 PM EDT Specimen requisition ordered. ??Separate Pathology report to follow Oscar Corona MD PATHOLOGY/CYTOLOGY ORDERABLE S Performing Organization Address City/State/[place] [address] Specimen to Pathology (12/27/2019 12:14 PM EDT) Specimen Anatomical Collection Method Collection Time Receive d Time (Source) Location / / Volume Laterality AP Specimen 12/27/2019 12:14 12/27/2019 PM EDT 12:14 PM EDT Narrative [facility] - 12/27/2019 12:14 PM EDT Specimen requisition ordered. ??Separate Pathology report to follow Oscar Corona MD PATHOLOGY/CYTOLOGY ORDERABLE S Performing Organization Address City/State/[place] [address] Specimen to Pathology (12/27/2019 12:14 PM EDT) Specimen Anatomical Collection Method Collection Time Receive d Time (Source) Location / / Volume Laterality AP Specimen 12/27/2019 12:14 12/27/2019 PM EDT 12:14 PM EDT Narrative [facility] - 12/27/2019 12:14 PM EDT Specimen requisition ordered. ??Separate Pathology report to follow Oscar Corona MD PATHOLOGY/CYTOLOGY ORDERABLE S Performing Organization Address City/State/[place] [address] Specimen to Pathology (12/27/2019 12:14 PM EDT) Specimen Anatomical Collection Method Collection Time Receive d Time (Source) Location / / Volume Laterality AP Specimen 12/27/2019 12:14 12/27/2019 PM EDT 12:14 PM EDT Narrative [facility] - 12/27/2019 12:14 PM EDT Specimen requisition ordered. ??Separate Pathology report to follow Oscar Corona MD PATHOLOGY/CYTOLOGY ORDERABLE S Performing Organization Address City/State/[place] [address] Specimen to Pathology (12/27/2019 12:14 PM EDT) Specimen Anatomical Collection Method Collection Time Receive d Time (Source) Location / / Volume Laterality AP Specimen 12/27/2019 12:14 12/27/2019 PM EDT 12:14 PM EDT Narrative [facility] - 12/27/2019 12:14 PM EDT Specimen requisition ordered. ??Separate Pathology report to follow Oscar Corona MD PATHOLOGY/CYTOLOGY ORDERABLE S Performing Organization Address City/State/[place] [address] Specimen to Pathology (12/27/2019 12:14 PM EDT) Specimen Anatomical Collection Method Collection Time Receive d Time (Source) Location / / Volume Laterality AP Specimen 12/27/2019 12:14 12/27/2019 PM EDT 12:14 PM EDT Narrative [facility] - 12/27/2019 12:14 PM EDT Specimen requisition ordered. ??Separate Pathology report to follow Oscar Corona MD PATHOLOGY/CYTOLOGY ORDERABLE S Performing Organization Address City/State/[place] [address] Surgical Pathology Report (12/27/2019 11:56 AM EDT) Component Value Ref Test Analysis Performed At [facility] gist Range Method Time Signature Surgical [id number] ? Location: 4T; EA09; A [facility] Report The signing pathologist has (i) [...] PhD, Lorelei Verified: ??01/02/2020 ?Pathologist Performed at: ??-[facility] Dept. of Pathology, [place], [place] SPECIMEN(S) SUBMITTED A - esophagus at [...] Organization Address City/State/[place] [address] UPPER GI ENDOSCOPY (12/27/2019 11:11 AM EDT) Component Value Ref Test Analysis Performed At [facility] Range Method Time Signature UPPER GI [facility] ENDOSCOPY Endoscopy Procedure Date: 12/27/2019 11:11 AM ? Patient Name: Zoraida Arciniega ? Date of : 1950 ? Age: 69 ? Order #: [id number] ? Instrument Name: [id number] ? Procedure: ? Upper GI endoscopy Indications: ? Surveillance for malignancy due to ? 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 Oscar Cornoa, Tirso Arias , ? Dianelys PETERS Referring [...] classified as Tony's stage ? C8-M12 per [place] criteria. These changes involved ? the mucosa [...] classified as Tony's stage C8-M12 ? per [place] criteria. Biopsied . ? - Normal stomach. [...] Number [facility] COLONOSCOPY (12/27/2019 11:11 AM EDT) [facility] gist Method Time Signature COLONOSCOPY [facility] Endoscopy Procedure Date: 12/27/2019 11:11 AM ? Patient Name: Zoraida Arciniega ? Date of : 1950 ? Age: 69 ? Order #: [id number] ? Instrument Name: [id number] ? Procedure: ? Colonoscopy Indications: ? Screening [...] was evaluat ed using ? the BBPS ([place] Bowel Prepar ation ? Scale) with scores [...] MAR Action Action Date Dose Rate Site lactated ringers infusion New Bag 12/27/2019 10:08 AM 100 mL/hr 100 mL/hr 100 mL/hr, Intravenous, EDT CONTINUOUS, Starting on Thu12/27/19 at 1015, Until 12/27/19 at 1320, Endoscopy (Day of Procedure) documented in this encounter Active and Recently [...] Routine 115 1 (Given - Provider: Tirso rAias RN - Comment: see fentanyl same time) documented in this encounter Care Teams Flight Manager Relationship Specialty Start Date End Date López Gilliland MD PCP - General 02/12/10 05/23/21 [address] [place] [address] documented as of this encounter
--- OUTSIDE RECORDS SUMMARY | 2021-12-06 00:46 | XMS_ITS | Encounter Summary ---
:1950 Author Organization [facility] [place] [address] Care Team Providers Name Role Phone López Gilliland MD Primary Care Provider Encounter Details Date Type Department Care Team Description 05/31/2018 Hospital Encounter Mammography/DXA at López Gilliland Visit for screening [facility] [place] mammogram [facility] [address] [place] [phone] Social History Tobacco Use Types Packs/Day Years Used Date Never Smoker Smokeless Tobacco: Never Used Sex Assigned at Date Recorded Not on [...] 24 hr fluocinonide (LIDEX) Apply to scalp nightly 60 mL 2 06/2016 0.05 % for 1-2 weeks. 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 fish oil-omega-3 fatty Take 2 g by mouth 0 12/27/2019 acids 1,000 mg Capsule daily. CIS Free Text Med - 0 06/26/200512/26 Baby ASA (aspirin) CIS Free Text Med - 0 06/26/200512/26 Effexor documented as of this encounter Plan of Treatment Not on filedocumented as of this encounter Procedures Procedure Name Priority Date/Time Associated Diagnosis Comme nts MAMMO SCREENING CAD Routine 05/31/2018 11:22 AM Visit for scre ening Results for this AND DELFINO BILATERAL EDT mammogram procedure are in the results section. documented in this encounter Results Mammo Screening Cad and Delfino Bilateral (05/31/2018 11:22 AM EDT) Anatomical Region Laterality Modality Breast Bilateral Mammography Specimen (Source) Anatomical Location Collection Method / Collectio n Time Received Time / Laterality Volume Narrative 05/31/2018 11:46 AM EDT EXAMINATION: MAMMO SCREENING CAD AND DELFINO BILATERAL REASON FOR EXAM: Screening. History of l eft breast cancer. TECHNIQUE: CC and MLO views were obtaine d of both breasts. Computer aided detection was used. 3D tomosynthesis natali ges were obtained in addition to 2D images. COMPARISON: The study is compared with p dellr images. FINDINGS: Breast density: The breasts are heteroge neously dense, which may obscure small masses There are no suspicious microcalcificati ons, masses, or areas of distortion. There are post treatment changes in the left breast. There is a retained skin staple in the lumpectomy bed. CONCLUSION: No mammographic evidence of malignancy. RECOMMENDATION: Routine annual screening . BIRADS CATEGORY 2: BENIGN FINDINGS * ??Medical organizations agree that [facility] screening mammography beginning at age 40 saves the most lives. * ??The risks of screening are negligibl e compared to dying from breast cancer or suffering from more aggressive treatment required when detected at a later stage. * ??No woman is at low risk for breast c ancer. * ??Some women, because of their family history, a genetic tendency, or certain other factors, should be screened with b reast MRI along with mammograms. (The number of women who fall into this categ ory is very small). The patient and health care provider should discuss the patient history and decide if earlier screening and breast MRI are appropriate . * ??Screening should continue as long as a woman is in good health and is expected to live 10 years or longer. * ??Screening mammography may not detect 10-15% of breast cancers. * ??Women should report any breast smart es to a health care provider right away. Thank you for letting us participate in the care of this patient. For questions regarding this report, please contact e number below. ? Electronically signed by: Isabell mckinley [facility] ([phone]), at 05/31/2018 11:46 AM López Gilliland MD IMG MAMMO ORDERABLES documented in this encounter Visit Diagnoses Diagnosis Visit for screening mammogram Other screening mammogram documented in this encounter Care Teams Title Examiner Relationship Specialty Start Date End Date López Gilliland MD PCP - General 02/12/10 05/23/21 [address] [place] [address] documented as of this encounter
--- OUTSIDE RECORDS SUMMARY | 2021-12-06 00:46 | XMS_ITS | Encounter Summary ---
:1950 Author Organization [facility] [place] [address] Care Team Providers Name Role Phone López Gilliland MD Primary Care Provider Reason for Visit Consultation (Routine) - Closed Specialty Diagnoses / Procedures Referred By Contact Refer red To Contact Gastroenterology Diagnoses DYSPHAGIA, PHARYNGEAL PHASE Hanna Rivero, [facility] [address] [place] [address] [place] [address] Fax: Referral ID Status Reason Start Date Expiration Date Visits V isits Requested Authorized [id number] Closed Consult, Test 10/06/2018 10/06/2019 [facility] PCP Updated and/or Approved Encounter Details Date Type Department Care Team Description 11/03/2018 Office Visit Gastroenterology at [facility] O'Bernadine Tracia, Esophageal dysphagia [facility] [place] [address] [place] [address] [facility] [place] [address] Social History Tobacco Use Types Packs/Day Years Used Date Never Smoker Smokeless Tobacco: Never Used Sex Assigned at Date Recorded Not on file documented as of this encounter Last Filed Vital Signs Vital Sign Reading Time Taken Comments Blood Pressure 161/71 11/03/2018 11:14 AM EDT Pulse 62 11/03/2018 11:14 AM EDT Temperature - - Respiratory Rate - - Oxygen Saturation - - Inhaled Oxygen Concentration - - Weight 88.9 kg (195 lb 14.4 oz) 11/03/2018 11:14 AM EDT Height 162.6 cm (5' 4) 11/03/2018 11:14 AM EDT Body Mass Index 33.63 11/03/2018 11:14 AM EDT documented in this encounter Patient Instructions Patient InstructionsCipriano Stevens RN - 11/03/2018 10:00 AM EDT egd gif documented in this encounter Progress Notes Cipriano Stevens RN - 11/03/2018 10:00 AM EDT Section of Gastroenterology and Hepatology [address] [place] [address] .Zoraida Grant Suze : 1950 Patient is here for further evaluation of gastrointestinal symptoms at the request of Hanna Rivero. HPI: Pt is here for dysphagia. I have spasms from time to time. Intermittent. Episodes can last aslong as 20 minutes. Only has difficulty swallowing when these episodes occur. Episodes occur at least once a week. Uses a lot of water while eating. Does not have a hx of heartburn. During these episodes she can produce quite a bit of phlegm and have a burning throat. Intermittent voice changes. Per pt saw ent Dr. Ledezma. everything was normal. I would vomit if I could but I cannot during these episodes. Triggers: dehydration, chicken. Good appetite. Weight stable. No pre/post-prandial sx. No food allergies. No chronic nsaids. 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 No abdominal pain. No blood in stool. Has not had a colonoscopy. Declines. Social History Socioeconomic History ??? Marital status: Single Spouse name: Not on file ??? Number of children: Not on file ??? Years of education: Not on file ??? Highest education level: Not on file Occupational History ??? Not on file Social Needs ??? Financial resource strain: Not on file ??? Food insecurity: Worry: Not on file Inability: Not on file ??? Transportation needs: Medical: Not on file Non-medical: Not on file Tobacco Use ??? Smoking status: Never Smoker ??? Smokeless tobacco: Never Used Substance and Sexual Activity ??? Alcohol use: Not on file ??? Drug use: Not on file ??? Sexual activity: Not on file Lifestyle ??? Physical activity: Days per week: Not on file Minutes per session: Not on file ??? Stress: Not on file Relationships ??? Social connections: Talks on phone: Not on file Gets together: Not on file Attends druze service: Not on file Active member of club or organization: Not on file Attends meetings of clubs or organizations: Not on file Relationship status: Not on file ??? Intimate partner violence: Fear of current or ex partner: Not on file Emotionally abused: Not on file Physically abused: Not on file Forced sexual activity: Not on file Other Topics Concern ??? Not on file Social History Narrative ??? Not on file Medical History: breast cancer (chem/rad); Surgical History: carpal tunnel; appendectomy; partial mastectomy Family History: pt adopted Allergies Allergen Reactions ??? Metronidazole CIS - lightheaded, tingling of extremities Current Outpatient Medications: ??? ARIPiprazole (ABILIFY) 5 mg Tablet, , Disp: , Rfl: ??? pindolol (VISKEN) 5 mg Tablet, , Disp: , Rfl: ??? venlafaxine (EFFEXOR-XR) 150 mg Capsule, Sust. Release 24 hr, , Disp: , Rfl: ??? fish oil-omega-3 fatty acids 1,000 mg Capsule, Take 2 g by mouth daily., Disp: , Rfl: ??? fluocinonide (LIDEX) 0.05 % Solution, Apply to scalp nightly for 1-2 weeks. Then 1-2x per week as maintenance if needed., Disp: 60 mL, Rfl: 2 ??? CIS Free Text Med - Baby ASA (aspirin), , Disp: , Rfl: ??? CIS Free Text Med - Effexor, , Disp: , Rfl: Review of Systems - Negative except General: Cardiac: Resp: GI: see above : MS: Neuro: Skin: Psyche: Sleep: Endo: Impression: 1. Dysphagia: etiology for this is not clear; ?EE. Schedule upper endoscopy. ?silent reflux. Consider ph testing. May need to consider hrem ?esophageal dysmotility. 2. Gif in 6-8 weeks; f/u with pt once results received. I spent a total of 52 minutes face to face with this patient; 32 minutes were spent counseling the patient in the medical problems described above. Sincerely, Cipriano Stevens NP Section of Gastroenterology and Hepatology documented in this encounter Plan of Treatment Scheduled Orders Name Type Priority Associated Diagnoses Order S chedule UPPER GI ENDOSCOPY Procedures Routine Esophageal dysphagia O rdered: 11/03/2018 documented as of this encounter Visit Diagnoses Diagnosis Esophageal dysphagia Dysphagia, pharyngoesophageal phase documented in this encounter Care Teams Supervisor Hand Silvering Relationship Specialty Start Date End Date López Gilliland MD PCP - General 02/12/10 05/23/21 [address] [place] [address] documented as of this encounter
--- OUTSIDE RECORDS SUMMARY | 2021-12-06 00:46 | XMS_ITS | Encounter Summary ---
:1950 Author Organization [facility] [place] [address] Care Team Providers Name Role Phone López Gilliland MD Primary Care Provider Reason for Referral Diagnostic Test (Routine) - Closed Specialty Diagnoses / Procedures Referred By Contact Refer red To Contact Radiology Diagnoses Estrogen deficiency López Gilliland MD [facility] Rad Xray Procedures DXA Central-Spine, Hip, And/Or Whole Body (Generic) [address] [facility] [address] [place] [id number] [place] [phone] Referral ID Status Reason Start Date Expiration Date Visits V isits Requested Authorized [id number] Closed Specialty 03/03/2017 03/03/2018 1 1 Service Requested Reason for Visit Diagnostic Test (Routine) - Closed Specialty Diagnoses / Procedures Referred By Contact Refer red To Contact Radiology Diagnoses Estrogen deficiency López Gilliland MD [facility] Rad Xray Procedures DXA Central-Spine, Hip, And/Or Whole Body (Generic) [address] [facility] [address] [place] [id number] [place] [phone] Referral ID Status Reason Start Date Expiration Date Visits V isits Requested Authorized [id number] Closed Specialty 03/03/2017 03/03/2018 1 1 Service Requested Encounter Details Date Type Department Care Team Description 04/15/2017 Hospital Encounter XRay at [facility] López Gilliland Estrogen deficiency [address] [place] [address] Dr Beasley, [place], [place] [address] [address] [place], [place] [phone] Social History Tobacco Use Types Packs/Day Years [...] Name Priority Date/Time Associated Diagnosis Comme nts DXA CENTRAL SPINE, Routine 04/15/2017 10:13 AM Estrogen defici ency Results for this HIP, AND/OR WHOLE EST procedure are in BODY (GENERIC) the results section. documented in this encounter Results DXA Central-Spine, Hip, And/Or Whole Body (Generic) (04/15/2017 10:13 AM EST) Anatomical Region Laterality Modality C-spine, Hip N/A Other Specimen (Source) Anatomical Location Collection Method / Collectio n Time Received Time / Laterality Volume Impressions 04/15/2017 10:04 PM EST The measurements fulfill the WHO classification for normal. Estimating Fracture Risk: ? The relationship between bone mineral de nsity (BMD) and risk of fracture is well established. As BMD decreases, risk incr eases. Quantifying risk is difficult and is usually limited to estimation of the relative risk - a term which may have limited value when trying to discuss an individual's risk. Estimating the absolute risk for a patient requires an understanding of the incidence rate in a given population and consideration of mu ltiple, partially independent, risk factors in addition to BMD. ? The World Health Organization (WHO) has developed a fracture risk prediction tool that calculates a ten-year risk of major osteoporotic fracture based on femoral neck bone density measurements a nd nine clinical risk factors for individuals who have not been treated fo r osteoporosis. This is available through an interactive web-based [employer] (http://www.shef.ac.uk/FRAX/) and can be used to estimate a given patient's ab solute risk of major osteoporotic fracture or hip fracture over the next 1 0 years. These estimates may prove useful when discussing risk with a patie nt. It is important, however, to understand the tool's limitations and ho w a given individual's risk might differ from the tool's estimate. The tool does not take into account the dose-response associated with most risk factors. For e xample, the significant increase in risk associated with multiple prior fractures compared to a single prior fracture is not taken into account. Similarly, the l ocation of a previous fracture, the amount of glucocorticoids and number of cigarettes smoked are not considered. These limitations are discussed in a Fr equently Asked Questions section of the FRAX website which you are encouraged to review. ? DEXA data sheets with BMD measurements a nd plots are available in [employer] under the imaging tab. Paper copies will be sent to providers without E-[employer] access. If you have received this report without th e data sheet and do not have access to [employer], please contact Radiology Transcrip tion at [phone] Thursday thru [place] 8am-4pm. Narrative 04/15/2017 10:04 PM EST EXAMINATION: DXA CENTRAL-SPINE, HIP, AND/OR WHOLE BODY (GENERIC) CLINICAL HISTORY: ? OSTEOPOROSIS SCREENING, ESTROGEN DEF TECHNIQUE: Scans were acquired at the [facility] spine, ?and left hip. COMPARISON: none FINDINGS: Femoral neck BMD: 0.808 ? g/cm2 Lowest T-score at a diagnostic region of interest: T-score: -0.4, SARA: Femoral neck, WHO di agnosis: Normal Procedure Note Sandra Franco MD - 04/15/2017Formatt ing of this note might be different from the original. EXAMINATION: DXA CENTRAL-SPINE, HIP, AND /OR WHOLE BODY (GENERIC) CLINICAL HISTORY: OSTEOPOROSIS SCREENING , ESTROGEN DEF TECHNIQUE: Scans were acquired at the [facility]ian mbar spine, and left hip. COMPARISON: none FINDINGS: Femoral neck BMD: 0.808 g/cm2 Lowest T-score at a diagnostic region of interest: T-score: -0.4, SARA: Femoral neck, WHO di agnosis: Normal IMPRESSION The measurements fulfill the WHO classi fication for normal. Estimating Fracture Risk: ? The relationship between bone mineral de nsity (BMD) and risk of fracture is well established. As BMD decreases, risk incr eases. Quantifying risk is difficult and is usually limited to estimation of the relative risk - a term which may have limited value when trying to discuss an individual's risk. Estimating the absolute risk for a patient requires an understanding of the incidence rate in a given population and consideration of mu ltiple, partially independent, risk factors in addition to BMD. ? The World Health Organization (WHO) has developed a fracture risk prediction tool that calculates a ten-year risk of major osteoporotic fracture based on femoral neck bone density measurements a nd nine clinical risk factors for individuals who have not been treated fo r osteoporosis. This is available through an interactive web-based Vid[employer] ce (http://www.shef.ac.uk/FRAX/) and can be used to estimate a given patient's ab solute risk of major osteoporotic fracture or hip fracture over the next 1 0 years. These estimates may prove useful when discussing risk with a patie nt. It is important, however, to understand the tool's limitations and ho w a given individual's risk might differ from the tool's estimate. The tool does not take into account the dose-response associated with most risk factors. For e xample, the significant increase in risk associated with multiple prior fractures compared to a single prior fracture is not taken into account. Similarly, the l ocation of a previous fracture, the amount of glucocorticoids and number of cigarettes smoked are not considered. These limitations are discussed in a Fr equently Asked Questions section of the FRAX website which you are encouraged to review. ? DEXA data sheets with BMD measurements a nd plots are available in [employer] under the imaging tab. Paper copies will be sent to providers without E- access. If you have received this report without th e data sheet and do not have access to [employer] please contact Radiology Transcrip tion at [phone] Thursday thru Thursday 8am-4pm. López Gilliland MD IMG DEXA ORDERABLES documented in this encounter Visit Diagnoses Diagnosis Estrogen deficiency Other ovarian failure documented in this encounter Care Teams Chemical Tank Worker Relationship Specialty Start Date End Date López Gilliland MD PCP - General 02/12/10 05/23/21 [address] [place] [address] documented as of this encounter
--- OUTSIDE RECORDS SUMMARY | 2021-12-06 00:46 | XMS_ITS | Encounter Summary ---
:1950 Author Organization [place] [address] Care Team Providers Name Role Phone Mitch Ceron MD Primary Care Provider Encounter Details Date Type Department Care Team Description 06/05/2021 Hospital Encounter Mammography/DXA at Mitch Ceron [facility] [place] [facility] [place] [facility] [address] [place] [phone] Social History Tobacco Use Types Packs/Day Years [...] Diagnosis Comme nts MAMMO SCREENING CAD Routine 06/05/2021 2:50 PM Encounter for R esults for this AND DELFINO BILATERAL EDT screening mammogram pr ocedure are in for breast cancer the result s section. documented in this encounter Results Mammo Screening Cad and Delfino Bilateral (06/05/2021 2:50 PM EDT) Anatomical Region Laterality Modality Breast Bilateral Mammography Specimen (Source) Anatomical Location Collection Method / Collectio n Time Received Time / Laterality Volume Narrative 06/06/2021 8:17 AM EDT REASON FOR EXAM: Screening. History of breast cancer. TECHNIQUE: CC and MLO views were obtaine d of the bilateral breast(s). Computer aided detection was used. 3D to mosynthesis images were obtained in addition to 2D images. Comparison:Compared with prior images. FINDINGS: Breast density:The breasts are heterogen eously dense which may obscure small masses There are no suspicious microcalcificati ons, masses, or areas of distortion. There are post surgical serrano ges in the left breast. CONCLUSION: No mammographic evidence of malignancy. RECOMMENDATION:Routine screening. A result letter has been sent to this anuel bonilla by [facility]. BIRADS CATEGORY 2: BENIGN FINDINGS The [place] [employer] and Th e Society of Breast Imaging recommend annual screening beginning at age 40 for the general female population. Screening should continue as long as a w grazyna is in good health and is expected to live 10 more years or longer . All women should be familiar with the kn own benefits, limitations, and potential harms linked to breast cancer screening. They also should know how their breasts normally look and feel and report any breast changes to a health care provider right away. Some women, because of their family hist ory, a genetic tendency, or certain other factors, should be screene d with MRIs along with mammograms. (The number of women who fall into this category is very small.) The patient and health care provider should discuss the patient history and decide if earlier screening and breast M RI are appropriate. Mitch Ceron MD IMG MAMMO ORDERABLES documented in this encounter Visit Diagnoses Diagnosis Encounter for screening mammogram for br east cancer documented in this encounter Care Teams Promotions Manager Relationship Specialty Start Date End Date Mitch Ceron MD PCP - General Emergency Medicine 05/24/21 [address] [place] [address] documented as of this encounter
--- OUTSIDE RECORDS SUMMARY | 2021-12-06 00:46 | XMS_ITS | Clinical Summary ---
:1950 Author Organization [facility] [place] [address] Care Team Providers Name Role Phone Mitch Ceron MD Primary Care Provider Allergies Active Allergy Reactions Severity Noted Date Comments Metronidazole CIS - lighthea ded, tingling of extremities Medications Medication Sig Dispensed Refills Start Date End Date Status ARIPiprazole 0 12/11/2016 Active (ABILIFY) 5 mg Tablet pindolol (VISKEN) 5 Take 5 mg by mouth 0 12/11/2016 Active mg Tablet 2 times daily. venlafaxine Take 300 mg by 0 12/11/2016 Ac tive (EFFEXOR-XR) 150 mg mouth daily. Capsule, Sust. Release 24 hr fluocinonide (LIDEX) Apply to scalp 60 mL 2 12/24/2016 Active 0.05 % nightly for 1-2 SolutionIndications: weeks. 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 Additional Information Patient not taking. Reported on 11/03/2018 pantoprazole EC (Protonix) 40 mg Take 1 tablet by 180 tablet 3 11/14/2019 Active Tablet, Delayed Release mouth 2 times daily (E.C.)Indications: (before meals). Gastroesophageal reflux disease, esophagitis presence not specified Active Problems No known active problems Social History Tobacco Use Types Packs/Day Years Used Date Former Smoker Smokeless Tobacco: Never Used Comments: quit in 1977 Alcohol Use Standard Drinks/Week Comments Yes 1 (1 standard drink = 0.6 oz pure alcoho l) Sex Assigned at Date Recorded Not on file Last Filed Vital Signs Vital Sign Reading Time Taken Comments Blood Pressure 165/70 02/15/2020 11:11 AM EST Pulse 65 02/15/2020 11:11 AM EST Temperature 36.3 ??C (97.3 ??F) 12/27/2019 9:58 AM EDT Respiratory Rate 16 12/27/2019 12:50 PM EDT Oxygen Saturation 96% 12/27/2019 12:55 PM EDT Inhaled Oxygen Concentration - - Weight 91.9 kg (202 lb 11.2 oz) 02/15/2020 11:11 AM EST Height 162.6 cm (5' 4) 12/22/2018 8:51 AM EDT Body Mass Index 34.79 12/22/2018 8:51 AM EDT Plan of Treatment Health Maintenance Due Date Last Done Comments Covid-19 Vaccine (#1) 1953 Hepatitis C Screening 1966 Lipid Screening 1966 Tdap adult 06/11/1967 Tetanus vaccine 06/11/1967 Breast Cancer Share Decision 1988 Needed Zoster vaccine (1 of 2) 1998 Pneumoccocal Vaccine: 65+ (1 - 2013 PCV) Influenza (Flu) vaccine (1 of - 11/21/2021 Influenza standard series) Breast Cancer screening 06/06/2023 06/05/2021, 06/01/2020, 06/07/2019, Additional history exists Colonoscopy 12/26/2029 12/27/2019, 12/27/2019 Bone Density Scan Completed 04/15/2017 Insurance Payer Benefit Plan / Subscriber ID Effective Phone Address T ype Group Dates MEDICARE MEDICARE PART [id number] 2002-Pres [phone] [facility] [place] [address] [employer] [id number] 2018-Prese [phone] [address] [place] [address] [id number] Advance Directives Documents on File Type Date Recorded 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
--- OUTSIDE RECORDS SUMMARY | 2021-12-06 00:46 | XMS_ITS | Encounter Summary ---
:1950 Author Organization [facility] [place] [address] Care Team Providers Name Role Phone López Gilliland MD Primary Care Provider Reason for Visit Reason Onset Date Comments Medication Refill 11/14/2019 Encounter Details Date Type Department Care Team Description 11/14/2019 Refill Gastroenterology at [facility] Haley Madrigal, [facility] [place] [phone] Social History Tobacco Use Types Packs/Day Years [...] on file documented as of this encounter Plan of Treatment Not on filedocumented as of this encounter Visit Diagnoses Not on filedocumented in this encounter Care Teams Filenet Admin Relationship Specialty Start Date End Date López Gilliland MD PCP - General 02/12/10 05/23/21 [address] [place] [address] documented as of this encounter
--- OUTSIDE RECORDS SUMMARY | 2021-12-06 00:46 | XMS_ITS | Encounter Summary ---
:1950 Author Organization [facility] [place] [address] Care Team Providers Name Role Phone López Gilliland MD Primary Care Provider Reason for Visit Reason Onset Date Comments Medication Refill 11/14/2019 Encounter Details Date Type Department Care Team Description 11/14/2019 Refill Gastroenterology [place] [facility] Oscar Corona Gastroesophageal reflux [facility] Roscoe Grant [place], [place] [address] One Medical presence not specified [phone] [place] [address] Social History Tobacco Use Types Packs/Day Years [...] reflux disease, esophag itis presence not specified documented in this encounter Care Teams Body Masker Relationship Specialty Start Date End Date López Gilliland MD PCP - General 02/12/10 05/23/21 [address] [place] [address] documented as of this encounter
--- OUTSIDE RECORDS SUMMARY | 2021-12-06 00:46 | XMS_ITS | Encounter Summary ---
:1950 Author Organization [facility] [place] [address] Care Team Providers Name Role Phone López Gilliland MD Primary Care Provider Reason for Referral Consultation (Elective) - Closed Specialty Diagnoses / Procedures Referred By Contact Refer red To Contact Gastroenterology Diagnoses Tony's esophagus without dysplasia Oscar Corona MD [facility] [address] [place] [address] [place] [address] Phone: Referral ID Status Reason Start Date Expiration Date Visits V isits Requested Authorized [id number] Closed Consult, 02/15/2020 02/14/2021 1 1 Test & Treat Encounter Details Date Type Department Care Team Description 02/15/2020 Office Visit [place] [facility] [place] Corona Tony's esophagus [facility] [place] [address] [place] [address] [place] [address] Social History Tobacco Use Types Packs/Day Years [...] Pulse 65 02/15/2020 11:11 AM EST Temperature - - Respiratory Rate - - Oxygen Saturation - - Inhaled Oxygen Concentration - - Weight 91.9 kg (202 lb 11.2 oz) 02/15/2020 11:11 AM EST Height - - Body Mass Index 34.79 12/22/2018 8:51 AM EDT documented in this encounter Progress Notes Oscar Corona MD - 02/15/2020 11:00 AM EST Chief Complaint: Zoraida Arciniega is a 69 y.o. patient referred for consultation by Dr. Gilliland for Tony's esophagus History of Present Illness: 69 y.o. female with Tony's esophagus She underwent an EGD and colonoscopy on December 27, 2019. The EGD showed long segment Tony's this esophagus (C8 M12 per [place] criteria) which was biopsied and her colonoscopy was normal. The Toyn's biopsies were negative for dysplasia. A small hiatal hernia was also seen These findings were similar to those on EGD when I first met her in November 2018. This had been arranged by Cipriano Stevens APRN for dysphagia. Seen for the first time in October 2018. She has previously been seen by the GI motility clinic here at [facility] for her GERD and Tony's esophagus. She was most recently she was seen by Dr. Rebel Gongora in December 2018 at my request.At that time he reviewed Tony's esophagus. He discussed the potential role of Lorenzo fundoplication. He recommended continuing on with PPI therapy and endoscopic surveillance. She denies dysphagia, heartburn, nausea and vomiting, dyspepsia, abdominal pain, altered bowel movements (one BM every 1-2 days), blood in stools or melena. Appetite and weight stable. Medications: Current Outpatient Medications Medication Sig Dispense Refill ??? pantoprazole EC (Protonix) 40 mg Tablet, Delayed Release (E.C.) Take 1 tablet by mouth 2 times daily (before meals). 180 tablet 3 ??? ARIPiprazole (ABILIFY) 5 mg Tablet ??? pindolol (VISKEN) 5 mg Tablet Take 5 mg by mouth 2 times daily. ??? venlafaxine (EFFEXOR-XR) 150 mg Capsule, Sust. Release 24 hr Take 300 mg by mouth daily. ??? fluocinonide (LIDEX) 0.05 % Solution Apply to scalp nightly for 1-2 weeks. Then 1-2x per week asmaintenance if needed. (Patient not taking: Reported on 11/03/2018) 60 mL 2 No current facility-administered medications for this visit. Allergies: is allergic to metronidazole. Past Medical History: has a past medical history of Breast cancer (1991). Past Surgical History: has a past surgical history that includes Upper GI Endoscopy, Diagnostic (62954) (N/A, 11/23/2018); Upper Gi Endoscopy, Biopsy (21318) (N/A, 11/23/2018); Breast lumpectomy (Left, 1991); Colonoscopy, Diagnostic (09941) (N/A, 12/27/2019); and Upper Gi Endoscopy, Biopsy ([id number]) (N/A, 12/27/2019). Family History: Family history is unknown by patient. Patient adopted. There is no family history ofcolorectal cancer, IBD, or celiac disease. Social History: reports that she has quit smoking. She has never used smokeless tobacco. She reportscurrent alcohol use of about 1.0 - 5.0 standard drinks of alcohol per week. She reports previous drug use. ROS: Constitutional: no unexplained weight loss HEENT: no visual changes, no URI symptoms Cardio: no chest pain Resp: no cough, no SOB, or orthopnea Hem/Lymph: no new lumps or bumps on body GI: see HPI : no dysuria Integumentary: no new rashes Musculoskeletal: no new joint pains Neuro: no new numbness, weakness in extremities Physical Exam: VITAL SIGNS: There were no vitals taken for this visit. BMI: There is no height or weight on file to calculate BMI. General: Appears stated age, NAD Eyes: Normal sclera, normal conjunctiva ENT: Moist mucus membranes Lymph: No lymphadenopathy of the head or neck Heart: Normal heart sounds, no added sounds or murmurs Lungs: Normal breath sounds bilaterally, no adventitious sounds Abdomen: Soft, non-tender, no masses, no organomegaly, normal active bowel sounds, JULIO CÉSAR deferred Extremities: Normal pulses, no pedal edema Skin: No jaundice, no spider nevi, no palmar erythema Neuro: No asterixis, grossly intact Mental: Appropriate affect, oriented in person, place, and time Laboratory studies, imaging, procedures and prior interventions: Relevant prior investigations and interventions were carefully reviewed. Of particular relevance is the following: See above Impression: Ms. Arciniega is a 69 y.o. patient with the following issues: 1. Tony's esophagus - long segment with negative biopsies for dysplasia in 2018 an 2019. 2. GERD 3. Average risk colon cancer screening. Recommendations: 1. We discussed Tony's esophagus - pathophysiology, general lifestyle and dietary and pharmacologic measures, surveillance and prognosis. 2. We discussed hiatal hernia - no indication for fundoplication at this time 3. Remain on Pantoprazole 40 mg BID indefinitely 4. We had a thorough discussion regarding long-term PPI usage and safety profile. This included a brief review of the relevant medical literature. 5. Repeat EGD in December 2022 6. Consider repeat colonoscopy in 10 years. 7. No scheduled follow-up at this time - contact me if concerns Oscar Corona MD, [facility], [facility] Swallowing [facility] Cooperative Education Coordinator, Section of Gastroenterology [place] [address] Copy: López Gilliland MD [address] / [facility] [address] Please note: Voice recognition technology was utilized to dictate this note. Although I do my best to review notes, minor errors in dictation may be present. documented in this encounter Plan of Treatment Scheduled Referrals Name Type Priority Associated Order Schedule Diagnoses Referral to Outpatient Routine Tony's Ordered: Gastroenterology Referral esophagus without 2019 dysplasia documented as of this encounter Visit Diagnoses Diagnosis Tony's esophagus without dysplasia Tony's esophagus documented in this encounter Care Teams Manager Interface Relationship Specialty Start Date End Date López Gilliland MD PCP - General 02/12/10 05/23/21 [address] [place] [address] documented as of this encounter
--- OUTSIDE RECORDS SUMMARY | 2021-12-06 00:46 | XMS_ITS | Encounter Summary ---
:1950 Author Organization [facility] [place] [address] Care Team Providers Name Role Phone López Gilliland MD Primary Care Provider Reason for Visit Reason Onset Date Comments Results 12/03/2018 Encounter Details Date Type Department Care Team Description 12/03/2018 Telephone Gastroenterology at [facility] Haley Madrigal, Results [facility] [place] [address] Social History Tobacco Use Types Packs/Day [...] on file documented as of this encounter Miscellaneous Notes Telephone Encounter - Haley Madrigal RN - 12/03/2018 3:22 PM EDT Call placed to patient to relay results of her recent upper endoscopy. Pathology revealed long segment Tony's esophagus. Patient is currently taking Pantoprazole 40 mg BID. Reviewed that Cipriano had message out to Dr. Gongora to discuss if she is a candidate for an ablation. Zoraida is scheduled to see provider on Thursday and will discuss further at that time. documented in this encounter Plan of Treatment Not on filedocumented as of this encounter Visit Diagnoses Not on filedocumented in this encounter Care Teams Sneller Hand Relationship Specialty Start Date End Date López Gilliland MD PCP - General 02/12/10 05/23/21 [address] [place] [address] documented as of this encounter
--- OUTSIDE RECORDS SUMMARY | 2021-12-06 00:46 | XMS_ITS | Encounter Summary ---
:1950 Author Organization [place] [address] Care Team Providers Name Role Phone López Gilliland MD Primary Care Provider Encounter Details Date Type Department Care Team Description 06/07/2019 Hospital Encounter Mammography/DXA at López Gilliland Encounter for [facility] MD Ramos screening mammogram [facility] [address] [place] [phone] Social History Tobacco Use Types Packs/Day Years [...] Diagnosis Comme nts MAMMO SCREENING CAD Routine 06/07/2019 10:11 AM Encounter for Results for this AND DELFINO BILATERAL EDT screening mammogram pr ocedure are in for breast cancer the result s section. documented in this encounter Results Mammo Screening Cad and Delfino Bilateral (06/07/2019 10:11 AM EDT) Anatomical Region Laterality Modality Breast Bilateral Mammography Specimen (Source) Anatomical Location Collection Method / Collectio n Time Received Time / Laterality Volume Narrative 06/07/2019 10:35 AM EDT REASON FOR EXAM: Screening. History [...] Center. BIRADS CATEGORY 2: BENIGN FINDINGS [employer] and [employer] Society [...] screening and breast M RI are appropriate. López Gilliland MD IMG MAMMO ORDERABLES documented in this encounter Visit Diagnoses Diagnosis Encounter for screening mammogram for br east cancer documented in this encounter Care Teams Server Programmer Relationship Specialty Start Date End Date López Gilliland MD PCP - General 02/12/10 05/23/21 [address] [place] [address] documented as of this encounter
--- OUTSIDE RECORDS SUMMARY | 2021-12-06 00:46 | XMS_ITS | Encounter Summary ---
:1950 Author Organization [facility] [place] [address] Care Team Providers Name Role Phone López Gilliland MD Primary Care Provider Reason for Visit Auth/Cert Specialty Diagnoses / Procedures Referred By Contact Refer red To Contact Diagnoses Dysphagia dysphagia Procedures PRO UPPER GI ENDOSCOPY, DIAGNOSTIC EGD, UPPER GI ENDOSCOPY Referral ID Status Reason Start Date Expiration Date Visits Requ ested Visits Authorized [id number] 1 1 Encounter Details Date Type Department Care Team Description 11/23/2018 Hospital Encounter Gastroenterology at [facility] [place] [address] [place] [address] [place] [address] Social History Tobacco [...] Sign Reading Time Taken Comments Blood Pressure 119/68 11/23/2018 10:10 AM EDT Pulse 74 11/23/2018 9:45 AM EDT Temperature 37.4 ??C (99.3 ??F) 11/23/2018 8:23 AM EDT Respiratory Rate 16 11/23/2018 10:10 AM EDT Oxygen Saturation 96% 11/23/2018 10:10 AM EDT Inhaled Oxygen Concentration - - [...] better as expected. Thursday-Thursday Same Day Endo [phone] [id number] Otherwise contact [phone] and ask to speak to the paper bundler online publisher Follow-up care is a torre part of [...] Birthdate: 1950 Admit date: 11/23/2018 Attending Physician: Ocsar Corona MD Gastroenterology and Hepatology Pre-Procedure History [...] Component Value Ref Test Analysis Performed At [facility] Range Method Time Signature Surgical [id number] ? Location: 4T; EA06; [facility] Path[facility] WAIN[place]IGHT Report The signing pathologist has (i) examined [...] of reflux esophagit is. Electronically signed by: ??Steve CANO, Minerva Verified: ??11/25/2018 ?Pathologist Performed at: ??-[facility] Dept. of Pathology, [place], [place] CLINICAL INFORMATION Specimen Submitted: A - [...] MD PATHOLOGY/CYTOLOGY ORDERABLE S Performing Organization Address City/[facility] [place] [address] Specimen to Pathology (11/23/2018 9:47 AM EDT) Specimen Anatomical Collection Method Collection Time Receive d Time (Source) Location / / Volume Laterality AP Specimen 11/23/2018 9:47 AM 9 EDT 11:39 AM EDT [facility]ative [facility] - 11/23/2018 11:39 AM EDT Specimen requisition ordered. ??Separate Pathology report to follow Resulting Agency Comment Spec In Lab Oscar Corona MD PATHOLOGY/CYTOLOGY ORDERABLE S Performing Organization Address [facility]/ZIP [place] [address] Specimen to Pathology (11/23/2018 9:47 AM EDT) Specimen Anatomical Collection Method Collection Time Receive d Time (Source) Location / / Volume Laterality AP Specimen 11/23/2018 9:47 AM 9 EDT 11:39 AM EDT Narrative [facility] - 11/23/2018 11:39 AM EDT Specimen requisition ordered. ??Separate Pathology report to follow Resulting Agency Comment Spec In Lab Oscar Corona MD PATHOLOGY/CYTOLOGY ORDERABLE S Performing Organization Address City/[facility]/ZIP [place] [address] Specimen to Pathology (11/23/2018 9:47 AM EDT) Specimen Anatomical Collection Method Collection Time Receive d Time (Source) Location / / Volume Laterality AP Specimen 11/23/2018 9:47 AM 9 EDT 11:39 AM EDT Narrative [facility] - 11/23/2018 11:39 AM EDT Specimen requisition ordered. ??Separate Pathology report to follow Resulting Agency Comment Spec In Lab Oscar Corona MD PATHOLOGY/CYTOLOGY ORDERABLE S Performing Organization Address City/[facility]/ZIP [place] [address] Specimen to Pathology (11/23/2018 9:47 AM EDT) Specimen Anatomical Collection Method Collection Time Receive d Time (Source) Location / / Volume Laterality AP Specimen 11/23/2018 9:47 AM 9 EDT 11:39 AM EDT Narrative [facility] - 11/23/2018 11:39 AM EDT Specimen requisition ordered. ??Separate Pathology report to follow Resulting Agency Comment Spec In Lab Oscar Corona MD PATHOLOGY/CYTOLOGY ORDERABLE S Performing Organization Address City/[facility]/ZIP [place] [address] Specimen to Pathology (11/23/2018 9:47 AM EDT) Specimen Anatomical Collection Method Collection Time Receive d Time (Source) Location / / Volume Laterality AP Specimen 11/23/2018 9:47 AM 9 EDT 11:39 AM EDT Narrative [facility] - 11/23/2018 11:39 AM EDT Specimen requisition ordered. ??Separate Pathology report to follow Resulting Agency Comment Spec In Lab Oscar Corona MD PATHOLOGY/CYTOLOGY ORDERABLE S Performing Organization Address City/[facility] [place] [address] Specimen to Pathology (11/23/2018 9:47 AM EDT) Specimen Anatomical Collection Method Collection Time Receive d Time (Source) Location / / Volume Laterality AP Specimen 11/23/2018 9:47 AM 9 EDT 11:39 AM EDT Narrative [facility] - 11/23/2018 11:39 AM EDT Specimen requisition ordered. ??Separate Pathology report to follow Resulting Agency Comment Spec In Lab Oscar Corona MD PATHOLOGY/CYTOLOGY ORDERABLE S Performing Organization Address City/[facility]/ZIP [place] [address] Specimen to Pathology (11/23/2018 9:47 AM EDT) Specimen Anatomical Collection Method Collection Time Receive d Time (Source) Location / / Volume Laterality AP Specimen 11/23/2018 9:47 AM 9 EDT 11:39 AM EDT Narrative [facility] - 11/23/2018 11:39 AM EDT Specimen requisition ordered. ??Separate Pathology report to follow Resulting Agency Comment Spec In Lab Oscar Corona MD PATHOLOGY/CYTOLOGY ORDERABLE S Performing Organization Address City/[facility]/ZIP [place] [address] Specimen to Pathology (11/23/2018 9:47 AM EDT) Specimen Anatomical Collection Method Collection Time Receive d Time (Source) Location / / Volume Laterality AP Specimen 11/23/2018 9:47 AM 9 EDT 11:39 AM EDT Narrative [facility] - 11/23/2018 11:39 AM EDT Specimen requisition ordered. ??Separate Pathology report to follow Resulting Agency Comment Spec In Lab Oscar Corona MD PATHOLOGY/CYTOLOGY ORDERABLE S Performing Organization Address City/[facility]/ZIP [place] [address] UPPER GI ENDOSCOPY (11/23/2018 9:12 AM EDT) [facility] gist Method Time Signature UPPER GI [facility] ENDOSCOPY Endoscopy Procedure Date: 11/23/2018 9:12 AM ? Patient Name: Zoraida Arciniega ? Date of : 1950 ? Age: 68 ? Order #: [id number] ? Instrument Name: [id number] ? Procedure: ? Upper GI endoscopy Indications: ? Dysphagia Providers: ? Razia Chin , ? FRAN, Nazia Helms Referring MD: ?López Gilliland MD Medicines: ? Midazolam 3 [...] 40 mg OD ? - Return to GI clinic with Tr acia ? O'Bernadine PARKER ? - I will contact you with [...] ?? Addendum Date: 11/23/2018 10:10:55 AM ? Oscar Corona Oscar Grant Cj, 11/23/2018 10:11:01 AM Specimen (Source) Anatomical Collection Method Collection Time Re ceived Time Location / / Volume Laterality 11/23/2018 9:12 AM EDT López Gilliland MD GENERAL SURGICAL ORDERABLES Performing Organization Address City/State/ZIP Code Phon e Number [place] documented in this encounter Visit Diagnoses Not on filedocumented in this encounter Active and Recently Administered Medications Times are shown in EDT. PRN Medication Order 11/21/2018 11/22/2018 11/23/2018 fentaNYL 50 mcg/mL multi-dose injection (CANCELED) 0920 (Given - Provider: Razia Whitlock RN)0923 (Given - Provider: Razia Whitlock RN)0926 (Given - Provider: Razia Whitlock, RN) ONCE PRN, Starting 11/23/18 at 0920, U ntil 11/23/18 at 1227, Intra-Operative (Intra-Procedure), Routine midazolam (PF) (VERSED) multi-dose injection (CANCELED) 0920 (Given - Provider: Razia Whitlock RN)0923 (Given - Provider: Razia Whitlock RN)0926 (Given - Provider: Razia Whitlock, RN) ONCE PRN, Starting 11/23/18 at 0920, U ntil 11/23/18 at 1227, Intra-Operative (Intra-Procedure), Routine documented in this encounter Care Teams Food Consultant Relationship Specialty Start Date End Date López Gilliland MD PCP - General 02/12/10 05/23/21 [address] [place] [address] documented as of this encounter
--- OUTSIDE RECORDS SUMMARY | 2021-12-06 00:46 | XMS_ITS | Encounter Summary ---
:1950 Author Organization [facility] Address [facility] [place] [address] Care Team Providers Name Role Phone López Gilliland MD Primary Care Provider Encounter Details Date Type Department Care Team Description 04/15/2017 Hospital Encounter Mammography at [facility] López Gilliland Encounter for [facility] MD Ramos screening mammogram Drive [address] [place] [address] [phone] Social History Tobacco Use Types Packs/Day Years [...] Diagnosis Comme nts MAMMO SCREENING CAD Routine 04/15/2017 10:42 AM Encounter for Results for this AND DELFINO BILATERAL EST screening mammogram pr ocedure are in for breast cancer the result s section. documented in this encounter Results Mammo Screen CAD and Delfino Bilat (Generic) (04/15/2017 10:42 AM EST) Anatomical Region Laterality Modality Breast Bilateral Mammography Specimen (Source) Anatomical Location Collection Method / Collectio n Time Received Time / Laterality Volume Narrative 04/15/2017 10:55 AM EST Bilateral mammography Reason for exam: rouitne f/u 12.16 at [facility], H/X LEFT BR LUMPECTOMY, BR CA Technique: CC and MLO views were obtaine d of each breast using standard 2-D mammography as well as 3-D tomosynthesis . Computer aided detection was used. Comparison: This is compared with prior images. Findings: The breasts are heterogeneousl y dense, which may obscure small masses. There are no suspicious microcalcificati ons, masses, or areas of distortion. The pattern is stable. Stable left breast po stsurgical change. Conclusion: No mammographic evidence of malignancy. Recommendation: Routine screening. BI-RADS Category 2: Benign findings * ??The [employer] an d The Society of Breast Imaging recommend annual screening beginning at age 40 for the general female population. * ??Screening should continue as long as a woman is in good health and is expected to live 10 more years or longer . * ??All women should be familiar with th e known benefits, limitations, and potential harms linked to breast cancer screening. They also should know how their breasts normally look and feel and report any breast changes to a health care provider right away. * ??Some women, because of their family history, a genetic tendency, or certain other factors, should be screened with M RIs along with mammograms. (The number of women who fall into this category is very small.) The patient and health care provider should discuss the patient hist ory and decide if earlier screening and breast MRI are appropriate. López Gilliland MD IMG MAMMO ORDERABLES documented in this encounter Visit Diagnoses Diagnosis Encounter for screening mammogram for br east cancer documented in this encounter Care Teams Portable Machine Sander Relationship Specialty Start Date End Date López Gillliand MD PCP - General 02/12/10 05/23/21 [address] [place] [address] documented as of this encounter
--- OUTSIDE RECORDS SUMMARY | 2021-12-06 00:46 | XMS_ITS | Encounter Summary ---
:1950 Author Organization [facility] Address [facility] [place] [address] Care Team Providers Name Role Phone López Gilliland MD Primary Care Provider Encounter Details Date Type Department Care Team Description 11/23/2018 Orders Only Gastroenterology at [facility] Oscar Corona Tony's esophagus [facility] Roscoe [place] [address] [place] [address] [place] [address] Social History Tobacco Use Types Packs/Day Years [...] esophagus documented in this encounter Care Teams Linen Worker Relationship Specialty Start Date End Date López Gilliland MD PCP - General 02/12/10 05/23/21 [address] [place], [place] [address] documented as of this encounter
--- OUTSIDE RECORDS SUMMARY | 2021-12-06 00:47 | XMS_ITS | Encounter Summary ---
:1950 Author Organization [facility] Address [facility] [address] Care Team Providers Name Role Phone López Gilliland MD Primary Care Provider Reason for Visit Reason Comments Skin Lesion Consultation (Routine) - Closed Specialty Diagnoses / Procedures Referred By Contact Refer red To Contact Dermatology Diagnoses skin lesion right side of neck, rule out basal cell Rebecca Gabriel, Ht r Dermatology PUMP HOUSE TECHNICIAN [address] [place] [address] [place] [address] Referral ID Status Reason Start Date Expiration Date Visits V isits Requested Authorized [id number] Closed Consult, 12/05/2016 12/05/2017 1 1 [facility] Encounter Details Date Type Department Care Team Description 12/24/2016 Office Visit Dermatology at [facility] Gypsy Renteria S kin tag; Anthony CANO Prurigo nodularis; [address] [facility] [place] [address] [facility]DER[facility] [place], [place] [address] Social History Tobacco Use Types Packs/Day Years Used Date Never Smoker Smokeless Tobacco: Never Used Sex Assigned at Date Recorded Not on file documented as of this encounter Progress Notes Vicky Warren LPN - 12/24/2016 9:15 AM EDT DERMATOLOGY NEW PATIENT CLINIC NOTE DATE OF SERVICE: 12/24/2016 Zoraida Arciniega : 1950 PROVIDER: Gypsy Renteria MD REFERRED BY: Rebecca Gabriel For diagnosis and management of: skin lesion PATIENT PREFERENCES: -prefers to be called: Zoraida -ok to communicate detailed result information by: Mail?: Y Voicemail?: Y and what #: In chart -special considerations: -ok to discuss details of diagnosis and treatment with: N/A /4/2017 Chief Complaint Patient presents with ??? Skin Lesion HPI Zoraida Arciniega is a 66 y.o. year old female with hx of left breast ca s/p radiation and negative lymph node 25 years ago, depression and tremor who is a new patient to me and to dermatology. She presents for evaluation and potential treatment for a lesion on her right neck. She reports it was a white area that her PUMP HOUSE TECHNICIAN evaluated and questioned being a BCC. She scratched it off since the appointment was made, however, she would still like it evaluated. Reports the followin.Posterior scalp- ? Spots that itch for years. No current treatment. She scratches at them mindlessly. 2. Skin tag evaluation. She has multiple that are irritating Skin Hx: Skin Cancer Type: None Eczema:No Psoriasis:No Staph Infections:No Herpes Infections: None History of breast cancer FHX: -skin cancer?: Unknown patient was adopted SH: ETOH?:Occasionally TOB?:No Sunscreen Use?:yes Occupation?:Retired Current Outpatient Prescriptions on File Prior to Visit Medication Sig Dispense Refill ??? CIS Free Text Med - Baby ASA (aspirin) ??? CIS Free Text Med - Effexor No current facility-administered medications on file prior to visit. Allergies Allergen Reactions ??? Metronidazole CIS - lightheaded, tingling of extremities Review of Systems: Feels well, no fatigue, no weight loss, no other skin concerns EXAM General: AAOx3 Well-nourished/Obese/Frail Skin: A focal examination of the following areas was performed: Patient was asked to disrobe to the level of their comfort. Examination of skin from the waist up was performed. This includes examination of the skin of the face, ears, neck, chest, axillae, left and right upper extremities, hands, back, and abdomen. 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 Patient reassured. - Combined decision was made to treat symptoms with Lidex solution - Also discussed importance of behavioral modification Rx: Lidex solution - apply topically to the the posterior scalp 1x nightly for 1-2 weeks, then decrease to 1-2x per week as maintenance if needed. # Benign appearing nevi - trunk and upper extremities: Multiple, 0.3-0.5cm, medium-brown, evenly-pigmented macules and papules. All with regular pigment pattern on dermoscopy. No pigmented lesions suspicious for melanoma. - Discussed benign nature of lesion and provided reassurance - No treatment necessary at this time - I discussed warning signs for skin cancer, including the ABCDEs of melanoma. AAD handout given andreviewed. - Observe skin for change in color, size or character. Call if such occur # Skin Tags - Right lateral neck: 0.2-0.4cm, sessile, flesh-colored papules - Discussed benign nature of lesion and provided reassurance - No treatment necessary at this time, patient may want them removed cosmetically in the future - Observe skin for change in color, size or character. Call if such occur # Healing site - Right lateral neck: Healing macule of PIH. No crust, serum or scale. - No areas concerning for skin cancer - Continue to monitor FOLLOW UP: 1 year for a full skin exam, sooner if needed. I am documenting this encounter acting as the scribe for and in the presence of Dr.Roberta Dexter Warren LPN and Princess Moyer Exam and portions of the note completed by Dr. Arelis Tong I performed the above scribed service and agree with the accuracy of the documentation in this encounter. 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
--- OUTSIDE RECORDS SUMMARY | 2021-12-06 00:47 | XMS_ITS | Encounter Summary ---
:1950 Author Organization [facility] Address [address] [place] [address] Care Team Providers Name Role Phone López Gilliland MD Primary Care Provider Encounter Details Date Type Department Care Team Description 03/09/2015 Hospital Encounter Mammography at [facility] López Gilliland Encounter for [facility] MD Ramos screening mammogram [address] [facility] [address] [place] [address] [phone] Social History Tobacco Use Types Packs/Day Years Used Date Never Smoker Sex Assigned at Date Recorded Not on file documented as of this encounter Medications at Time of Discharge Medication Sig Dispensed Refills Start Date End Date CIS Free Text Med - Baby ASA (aspirin) 0 06/26/2005 12/27/2019 CIS Free Text Med - Effexor 0 06/27/19 06 12/27/2019 documented as of this encounter Plan of Treatment Not on filedocumented as of this encounter Procedures Procedure Name Priority Date/Time Associated Diagnosis Comme nts MAMMO SCREENING CAD Routine 03/09/2015 9:50 AM Encounter for R esults for this AND [place] BILATERAL EST screening mammogram pr ocedure are in for breast cancer the result s section. documented in this encounter Results Mammo Digital Bilateral Screening With CAD and Tomosynthesis (03/09/2015 9:50 AM EST) Anatomical Region Laterality Modality Breast Bilateral Mammography Specimen (Source) Anatomical Location Collection Method / Collectio n Time Received Time / Laterality Volume Narrative 03/09/2015 11:19 AM EST REASON FOR EXAM: Screening. History of left breast cancer. TECHNIQUE: CC and MLO views were obtaine d of both breasts. Computer aided detection was used. 3D tomosynthesis natali ges were obtained in addition to 2D images. Comparison: The study is compared with p rior images. FINDINGS: Breast density:There are scattered areas of fibroglandular density. There are no suspicious microcalcificati ons, masses, or areas of distortion. There are post treatment changes in the left breast. CONCLUSION: No mammographic evidence of malignancy. RECOMMENDATION: Routine screening. BIRADS CATEGORY 2: BENIGN FINDINGS * ??[employer] an d The Society [...] cancer documented in this encounter Care Teams Water Use Inspector Relationship Specialty Start Date End Date López Gilliland MD PCP - General 02/12/10 05/23/21 [address] [place] [address] documented as of this encounter
--- OUTSIDE RECORDS SUMMARY | 2021-12-06 00:47 | XMS_ITS | Encounter Summary ---
:1950 Author Organization [facility] Address [facility] [place] [address] Care Team Providers Name Role Phone López Gilliland MD Primary Care Provider Encounter Details Date Type Department Care Team Description 11/04/2010 Hospital Encounter Mammography [place] [facility] López Joy MD [address] [place], [place] [address] [place] [address] Social History Tobacco Use Types Packs/Day Years Used Date Never Assessed Sex Assigned at Date Recorded Not on [...] Diagnosis Comme nts MAMMO SCREENING CAD Routine 11/04/2010 1:21 PM Re sults for this BILATERAL EDT procedure are i n the results section. documented in this encounter Results MAMMO DIGITAL BILATERAL SCREENING WITH CAD (11/04/2010 1:21 PM EDT) Anatomical Region Laterality Modality Breast Bilateral Mammography Specimen (Source) Anatomical Collection Method Collection Time Re ceived Time Location / / Volume Laterality 11/04/2010 1:21 PM EDT Narrative 11/04/2010 4:41 PM EDT BILATERAL MAMMOGRAPHY ?? REASON FOR EXAM: Screening. History of L eft breast cancer. ?? TECHNIQUE: Cranio-caudal (CC) and mediol ateral oblique (MLO) views of both breasts as well as a Left XCCL view obta ined with direct digital capture. The exam was evaluated by CAD Version 8.3.17 . ?? FINDINGS: This is a negative mammogram ( ACR Category 1). There is a stable fibroglandular pattern without significa nt change as compared to prior studies. There is no mammographic evidence of can cer. ? There are post-surgical changes in the L eft breast. ? The breasts are of scattered density. ? CONCLUSION ?? This is a NEGATIVE mammogram (ACR Catego ry 1). Routine screening mammography is recommended with the frequency dependent on the patient's age and breast cancer risk factors. ?? A letter has been sent to this patient b y the [facility] [place]. Procedure Note Anthony Pulido MD - 11/04/2010Format ting of this note might be different from the original. BILATERAL MAMMOGRAPHY REASON FOR EXAM: Screening. History of L eft breast cancer. TECHNIQUE: Cranio-caudal (CC) and mediol ateral oblique (MLO) views of both breasts as well as a Left XCCL view obta ined with direct digital capture. The exam was evaluated by CAD Version 8.3.17 . FINDINGS: This is a negative mammogram ( ACR Category 1). There is a stable fibroglandular pattern without significa nt change as compared to prior studies. There is no mammographic evidence of can cer. There are post-surgical changes in the L eft breast. The breasts are of scattered density. CONCLUSION This is a NEGATIVE mammogram (ACR Catego ry 1). Routine screening mammography is recommended with the frequency dependent on the patient's age and breast cancer risk factors. A letter has been sent to this patient [facility] López Gilliland MD IMG MAMMO ORDERABLES documented in this encounter Visit Diagnoses Not on filedocumented in this encounter Care Teams Streets And Buildings Decorator Relationship Specialty Start Date End Date López Gilliland MD PCP - General 02/12/10 05/23/21 [address] [place] [address] documented as of this encounter
--- OUTSIDE RECORDS SUMMARY | 2021-12-06 00:47 | XMS_ITS | Encounter Summary ---
:1950 Author Organization [facility] Address [facility] [address] [place] [address] Care Team Providers Name Role Phone López Gilliland MD Primary Care Provider Encounter Details Date Type Department Care Team Description 11/11/2012 Hospital Encounter Mammography at [facility], [address] [facility] López Joy MD [address] [place], [place] [address] [place] [address] Social History Tobacco Use Types Packs/Day [...] Diagnosis Comme nts MAMMO SCREENING CAD Routine 11/11/2012 1:23 PM Re sults for this BILATERAL EDT procedure are i n the results section. documented in this encounter Results Mammo digital bilateral Screening with CAD (11/11/2012 1:23 PM EDT) Anatomical Region Laterality Modality Breast Bilateral Mammography Specimen (Source) Anatomical Collection Method Collection Time Re ceived Time Location / / Volume Laterality 11/11/2012 1:23 PM EDT Narrative 11/12/2012 9:07 AM EDT Reason for Exam: Screening, History of Breast Cancer status post BCT . Technique: Craniocaudal (CC) and Medio-l ateral Oblique (MLO) views of both breasts obtained with direct digital cap ture. In addition to the routine 2D imaging is exam was also performed with 3D tomographic imaging in MLO and CC projec tions. The exam was evaluated by CAD version 8. 3.17. Findings: This is a negative mammogram (ACR Catego ry 1). ??There is a stable fibroglandular pattern without significa nt change from prior studies. There are treatment related changes in t he left breast. There is no mammographic evidence of can cer. ??The breasts are of scattered density. CONCLUSION: This is a NEGATIVE mammogram (ACR Catego ry 1). ?? Routine screening mammography is recomme nded with the frequency dependent upon the patient's age and breast cancer risk factors. A letter has been sent to this patient b y the [facility] [place]. Procedure Note Anthony Pulido MD - 11/12/2012Format ting of this note might be different from the original. Reason for Exam: Screening, History of Breast Cancer status post BCT . Technique: Craniocaudal (CC) and Medio-l ateral Oblique (MLO) views of both breasts obtained with direct digital cap ture. In addition to the routine 2D imaging is exam was also performed with 3D tomographic imaging in MLO and CC projec tions. The exam was evaluated by CAD version 8. 3.17. Findings: This is a negative mammogram (ACR Catego ry 1). There is a stable fibroglandular pattern without significa nt change from prior studies. There are treatment related changes in t he left breast. There is no mammographic evidence of can cer. The breasts are of scattered density. CONCLUSION: This is a NEGATIVE mammogram (ACR Catego ry 1). Routine screening mammography is recomme nded with the frequency dependent upon the patient's age and breast cancer risk factors. A letter has been sent to this patient b y the breast imaging center. López Gilliland MD IMG MAMMO ORDERABLES documented in this encounter Visit Diagnoses Not on filedocumented in this encounter Care Teams Nut Dehydrator Operator Relationship Specialty Start Date End Date López Gilliland MD PCP - General 02/12/10 05/23/21 [address] [place] [address] documented as of this encounter
--- OUTSIDE RECORDS SUMMARY | 2021-12-06 00:47 | XMS_ITS | Encounter Summary ---
:1950 Author Organization [facility] Address [address] [place] [address] Care Team Providers Name Role Phone López Gilliland MD Primary Care Provider Encounter Details Date Type Department Care Team Description 03/10/2016 Hospital Encounter Mammography [place] [facility] López Gilliland Encounter for [facility] MD Ramos screening mammogram Drive [facility] [address] [place] [address] [phone] Social History Tobacco Use Types Packs/Day Years [...] Diagnosis Comme nts MAMMO SCREENING CAD Routine 03/10/2016 3:12 PM Encounter for R esults for this AND [place] BILATERAL EST screening mammogram pr ocedure are in for breast cancer the result s section. documented in this encounter Results Mammo Screen CAD and Delfino Bilat (Generic) (03/10/2016 3:12 PM EST) Anatomical Region Laterality Modality Breast Bilateral Mammography Specimen (Source) Anatomical Location Collection Method / Collectio n Time Received Time / Laterality Volume Narrative 03/11/2016 7:53 AM EST REASON FOR EXAM: Screening. History of left breast cancer. TECHNIQUE: CC and MLO views were obtaine d of both breasts. Computer aided detection was used. 3D tomosynthesis natali ges were obtained in addition to 2D images. Comparison: The study is compared with p rior images. FINDINGS: Breast density:The breasts are heterogen eously dense, which may obscure small masses. There are no suspicious microcalcificati ons, masses, or areas of distortion. There are post treatment changes in the left breast. CONCLUSION: No mammographic evidence of malignancy. RECOMMENDATION: Routine screening. BIRADS CATEGORY 2: BENIGN FINDINGS * ??[employer] an d The Society [...] cancer documented in this encounter Care Teams C Web Developer Relationship Specialty Start Date End Date López Gilliland MD PCP - General 02/12/10 05/23/21 [address] [place] [address] documented as of this encounter
--- OUTSIDE RECORDS SUMMARY | 2021-12-06 00:47 | XMS_ITS | Encounter Summary ---
:1950 Author Organization [facility] [place] [address] Care Team Providers Name Role Phone López Gilliland MD Primary Care Provider Reason for Visit Reason Comments Skin Check Encounter Details Date Type Department Care Team Description 01/28/2011 Office Visit Dermatology Horace Lozada, Eczema (Primary Dx) [address] [facility] MD [address] [place], [place] DERMATOLOGY [address] [place] [address] [phone] (Wo rk) Social History Tobacco Use Types Packs/Day Years Used Date Never Smoker Sex Assigned at Date Recorded Not on file documented as of this encounter Progress Notes Horace Lozada MD - 01/28/2011 3:03 PM EST Problem: Eyelid dermatitis. Zoraida is a 60-year-old woman who for the last two months has had a dermatitis of the right upper inner eyelid over the right medial canthus area. She is referred today by Susie Robertson for evaluation and treatment of this. Susie has asked the patient to wash this gently with warm water and a washcloth on a twice daily basis which she has been doing. The patient is not using really any particular topicals to treat this. There are no new creams or lotions that she was using at the time that this developed. She does not wear makeup, mascara, eyeliner, et cetera. She did about two months ago start using an Oil of Olay facial cream with SPF in it. She switched to this from [place] which she felt was making her skin too oily. She has no history of psoriasis. She does have a history of mild seborrhea but nothing recently. In the past she has treated her seborrhea with a pyrithione containing shampoo. She does feel that she has sensitive skin. Physical examination reveals a pleasant 60-year-old woman who has mild erythema over the right upper medial eyelid. She has no lower eyelid dermatitis and no involvement of the left upper eyelid. She does have some mild maceration of the upper eyelid particularly in the right medial canthal area. Assessment & Plan: Eyelid dermatitis right upper medial eyelid. a. Differential includes allergic contact dermatitis, seborrheic dermatitis versus possible eczematous dermatitis. b. Clinically I think this may be related to her new Oil of Olay facial moisturizing cream and its SPF. D/C this, and instead use Cetaphil. c. Recommended that she do try using some 1% Hydrocortisone Cream sparingly on a once to twice daily basis to affected area. d. RTC p.r.n. if this is not helping to clear her dermatitis. Recommended that she continue for now washing with the washcloth. e. RTC p.r.n. Cc: HALINA Gonzales- documented in this encounter Plan of Treatment Not on filedocumented as of this encounter Visit Diagnoses Diagnosis Eczema - Primary Contact dermatitis and other eczema, due to unspecified cause documented in this encounter Care Teams Agile Tester Relationship Specialty Start Date End Date López Gilliland MD PCP - General 02/12/10 05/23/21 [address] [place] [address] documented as of this encounter
--- OUTSIDE RECORDS SUMMARY | 2021-12-06 00:48 | XMS_ITS | Encounter Summary ---
:1950 Author Organization [facility] Address [address] [place] [address] Care Team Providers Name Role Phone Unavailable Primary Care Provider Unavailable Encounter Details Date Type Department Care Team Description 04/25/2005 Results Only [facility] - López Lee MD conversion [address] [place] [address] [place], [place] [address] [phone] Social History Tobacco Use Types Packs/Day Years Used Date Never Assessed Sex Assigned at Date Recorded Not on file documented as of this encounter Plan of Treatment Not on filedocumented as of this encounter Procedures Procedure Name Priority Date/Time Associated Diagnosis Comme [facility] CYTOPATHOLOGY Routine 04/25/2005 0:00 EST Results for this procedure are i n the results section . documented in this encounter Results CYTOPATHOLOGY (04/25/2005 0:00 EST) Pathology Report: CYTOPATHOLOGY REPORT [facility] Reports generated via electronic interface contain taqueria ginal data; however they are lacking the format of the original re port. Caution should be taken when reading/interpreting unfo rmatted reports. Name: ? EILEEN ARCINIEGA ? Accession #: ? [id number] : ? 1950 (Age: 54) ??F ?Collect Date: ? 0 05/2005 Location: ? [facility] ? Receive Date : ? 04/29/2005 Provider: ?LÓPEZ TODD MD Copy to: ? Specimen/Source: ? ThinPrep Pap Test, Cervix, processed on [email or web address] ThinPrep Imaging System, with manual evaluation Last Menstrual Period: ? TONE Other: ? Additional clinical information: Breast Cancer - chemo no tamoxifen ? SPECIMEN ADEQUACY ? Satisfactory for Evaluation - transformation zone component present GENERAL CATEGORIZATION ? Negative for Intraepithelial Lesion or Malignan cy ? Document reviewed and electronically signed by: ? Nery Ron, SCT(ASCP) ? Report Date: ??04/30/2005 15:13 End of Report Specimen Performing Organization Address City/State/ZIP Code Phon e Number [facility] [address] [place] [address] SERVICES [facility] [address] [place] [address] documented in this encounter Visit Diagnoses Not on filedocumented in this encounter
--- OUTSIDE RECORDS SUMMARY | 2021-12-06 00:48 | XMS_ITS | Encounter Summary ---
:1950 Author Organization [facility] Address [address] [place] [address] Care Team Providers Name Role Phone Unavailable Primary Care Provider Unavailable Encounter Details Date Type Department Care Team Description 10/25/[address] [facility] Georgina Gilliland MD Laboratory Services - [address] [place] [address] [address] [facility] [place] [address] [phone] Social History Tobacco Use Types Packs/Day Years Used Date Never Assessed Sex Assigned at Date Recorded Not on file documented as of this encounter Plan of Treatment Not on filedocumented as of this encounter Procedures Procedure Name Priority Date/Time Associated Diagnosis Comme nts PAP TEST- RESULT Routine 10/25/2010 0:00 EDT Resu lts for this ONLY procedure are i n the results section. documented in this encounter Results PAP TEST- RESULT ONLY (10/25/2010 0:00 EDT) Pathology Report: CYTOPATHOLOGY REPORT ? [facility] Reports generated via [employer] interface contain original data; ? however they are lacking the format of the original report. ? Caution should be taken when reading/interpreting unformatted reports. ? Name: ? EILEEN ARCINIEGA ? Accession #: ? [id number] ? : ? 1950 (Age: 60) ??F ?Collect Date: ? 10/25/2010 ? Location: ? [facility] ? Receive Date: ? 10/29/2010 ? Provider: ?MAGDA RAVI MD ? Copy to: ? Specimen/Source: ? Pap Test, Cervix, ThinPrep Imaging System with manual ?? evaluation ? Last Menstrual Period: ? years ago ? SPECIMEN ADEQUACY ? Satisfactory for Eval uation ? - transformation zone compon ent absent ? GENERAL CATEGORIZATION ? Negative for Intraepi thelial Lesion or Malignancy ? Document reviewed and electr onically signed by: ? Nery Ron, SCT( ASCP) ? Report Date: ??2010 11:40 ? End of Report ? Specimen Performing Organization Address City/State/ZIP Code Phon e Number [facility] [address] [place] [address] SERVICES [facility] [address] [place] [address] documented in this encounter Visit Diagnoses Not on filedocumented in this encounter
--- OUTSIDE RECORDS SUMMARY | 2021-12-06 00:48 | XMS_ITS | Encounter Summary ---
:1950 Author Organization [facility] Address [address] [place] [address] Care Team Providers Name Role Phone Unavailable Primary Care Provider Unavailable Encounter Details Date Type Department Care Team Description 11/15/2007 Before PRISM Converted [facility] - Robert Gilliland, Visit (Myrtle) Myrtle munoz MD [address] [place] [address] [place], [place] [phone] Social History Tobacco Use Types Packs/Day Years Used Date Never Assessed Sex Assigned at Date Recorded Not on file documented as of this encounter Plan of Treatment Not on filedocumented as of this encounter Procedures Procedure Name Priority Date/Time Associated Diagnosis Comme nts CYTOPATHOLOGY Routine 11/15/2007 0:00 EDT Results for this procedure are i n the results section . documented in this encounter Results CYTOPATHOLOGY (11/15/2007 0:00 EDT) Pathology Report: CYTOPATHOLOGY REPORT ? [facility] ? LAB Reports generated via [employer]r [employer] interface contain original data; ? however they are lacking the format of the original report. ? Caution should be taken when reading/interpreting unformatted reports. ? Name: ? EILEEN ARCINIEGA ? Accession #: ? [id number] ? : ? 1950 (Age: 57) ??F ?Collect Date: ? 11/15/2007 ? Location: ? [facility] ? Receive Date: ? 11/16/2007 ? Provider: ?MAGDA TA NNER MD ? Copy to: ? Specimen/Source: ? ThinPrep Pap Test, Cervix, processed on [employer] ThinPrep ?? Imaging System, with manual evaluation ? Last Menstrual Period: ? years ago ? Other: ? HPVA - HPV testing requested if ASC-US on the current ThinPrep Pap test. ? SPECIMEN ADEQUACY ? Satisfactory for Eval uation ? - transformation zone compon ent present ? GENERAL CATEGORIZATION ? Negative for Intraepi thelial Lesion or Malignancy ? Document reviewed and electr onically signed by: ? Cielo Verville,CT(ASCP) ? Report Date: ??08/28/ 2008 12:09 ? End of Report ? Specimen Performing Organization Address City/State/ZIP Code Phon e Number [facility] [address] [place] [address] SERVICES [facility] [address] [place] [address] documented in this encounter Visit Diagnoses Not on filedocumented in this encounter
--- OUTSIDE RECORDS SUMMARY | 2021-12-06 00:48 | XMS_ITS | Encounter Summary ---
:1950 Author Organization [facility] Address [address] [place] [address] Care Team Providers Name Role Phone Unknown, Provider Primary Care Provider Encounter Details Date Type Department Care Team Description 04/09/2021 Lab Requisition [facility] Outr Resulting Lab, Pathology & Laboratory Provider [facility] [address] [place] [address] Social History Tobacco Use Types Packs/Day Years Used Date Never Assessed Sex Assigned at Date Recorded Not on file documented as of this encounter Plan of Treatment Not on filedocumented as of this encounter Procedures Procedure Name Priority Date/Time Associated Diagnosis Comme nts [facility] Today 04/09/2021 9:46 EST LAB PCR COVID-19 TESTING Routine 04/09/2021 9:46 EST Resu lts for this procedure are i n the results section. documented in this encounter Results COVID-19 TEST [facility] PCR (04/09/2021 9:46 EST) Specimen Swab Performing Organization Address City/State/ZIP Code Phon e Number [facility] [address] [place] [address] SERVICES COVID-19 TESTING (04/09/2021 9:46 EST) COVID-19 rt-PCR Negative Negative [facility] Result Comment: [facility] This test has not been FDA c leared or approved. This test has been authorized by FDA under an EUA for use by authorized laboratories. This test has been authorized only for detection of nucleic acid fro SERVICES m 2019-nCoV, not for any oth er viruses or pathogens. This test is only authorized for the duration of the declaration that circumstances exist justifying the authorization of emergency use of in vitro d iagnostic tests for detectio n and/or diagnosis of 2019-nCoV under section 564(b)(1) of Act, 21 U.S.C ?? 360bbb-3(b) (1), unless the authorization is terminated or revoked sooner. Negative results do not prec lude 2019-nCoV infection and should not be used as the sole basis for treatment or other patient management decisions. Negative results must be combined with clinical observa tions, patient history, and epidemiological informatio n. Performed on the [employer] Fusion instrument Performing Lab [place] [facility] SERVICES Specimen Swab Performing Organization Address City/State/ZIP Code Phon e Number [facility] [address] [place] [address] SERVICES documented in this encounter Visit Diagnoses Not on filedocumented in this encounter Care Teams Water Sander Relationship Specialty Start Date End Date Unknown, Provider, PCP - General 02/05/15 documented as of this encounter
--- OUTSIDE RECORDS SUMMARY | 2021-12-06 00:48 | XMS_ITS | Clinical Summary ---
:1950 Author Organization [facility] Address [address] [place] [address] Care Team Providers Name Role Phone Unknown, Provider Primary Care Provider Encounters Date Type Specialty Care Team Description 12/03/2021 Lab Requisition Clinical Laboratory Outr Resulting Lab , Provider from Last 3 Months Social History Tobacco Use Types Packs/Day Years Used Date Never Assessed Sex Assigned at Date Recorded Not on file Plan of Treatment Health Maintenance Due Date Last Done Comments Hepatitis C Screen 1950 COVID-19 Vaccine (#1) 1950 Fall Risk Screening 2013 Procedures Procedure Name Priority Date/Time Associated Diagnosis Comme nts ACUTE HEPATITIS Routine 12/03/2021 11:00 Results for this PROFILE EDT procedure are i n the results section. from Last 3 Months Results ACUTE HEPATITIS PROFILE (12/03/2021 11:00 EDT) Hep B Surface Ag Negative Negative [facility] Hep C Antibody Negative Negative [facility] Hepatitis A NegativeComment: The Negative [facility] Antibody, IgM results of this LABORATORY assay can be falsely SERVICES lowered due to the consumption of Biotin. Hepatitis B Core Negative Negative [facility] Ab, Total LABORATORY SERVICES Specimen Blood - Venous blood (substance) Performing Organization Address City/State/ZIP Code Phon e Number [facility] [address] [place] [address] SERVICES from Last 3 Months Care Teams Awning Erector Relationship Specialty Start Date End Date Unknown, Provider, PCP - General 02/05/15
== END ==
PROVIDERS: PCP Family Medicine
DX: K76.0 Fatty (change of) liver, not elsewhere classified (principal); K80.20 Calculus of gallbladder without cholecystitis without obstruction
CPT/HCPCS: 76705

== ENCOUNTER 2021-12-07 05:58 | Emergency (ER) | payer MEDICARE, BC, SELFPAY ==
[2021-12-07 06:03] VITALS: BP 185/85; PULSE 76; RESP 18; TEMP 37.2; O2SAT 98
[2021-12-07 06:27] LABS: Bilirubin Negative (Negative); Blood Trace-intact (Negative); Clarity Clear (Clear); Glucose Negative (Negative); Ketones Negative (Negative); Leukocyte Esterase Negative (Negative); Nitrite Negative (Negative); Specific Gravity >= 1.030 (1.005-1.025); Urobilinogen 0.2 EU/dL (Up TO 0.2); pH 5.5 (5-8)
--- NOTE | 2021-12-07 06:30 | DI.CT_ITS ---
Exam(s) CT ABDOMEN PELVIS W EXAM: CT ABDOMEN PELVIS W CLINICAL HISTORY: RUQ/Epigastric pain. TECHNIQUE: Imaging Protocol: Axial computed tomography images with coronal and sagittal reformatted images were created and reviewed CONTRAST MATERIAL: Intravenous: Omnipaque 100cc Oral: Yes. Oral contrast was administered for bowel opacification COMPARISON: No exams were available for comparison FINDINGS: VISUALIZED LUNG BASES: There is pleural base nodular infiltrate in the medial aspect of the right low er lobe measuring 1.6 x 1 cm. This requires appropriate follow-up (series 4/image 2). There are no pleural effusions.. ABDOMEN: There is no ascites. Moderate size hiatal hernia noted. Measures 5 cm wide by 4.2 cm AP. Some mura l thickening is noted in the proximal stomach beyond the GE junction. This may be related to the hia xi hernia or other pathology and should be undergo endoscopy. LIVER: There are no focal hepatic lesions evident. No dilated intrahepatic ducts. GALLBLADDER/BILIARY: There are no radiopaque calculi seen in the gallbladder. However, the gallbladd er wall appears slightly prominent. The cystic duct is not dilated. CBD at the pancreatic head is n ot distended. CBD diameter above this level is upper normal. PANCREAS: No evidence of pancreatic mass nor dilatation of the pancreatic duct. SPLEEN: Spleen is not enlarged. No obvious intrasplenic lesions. Splenic and portal veins are paten t. ADRENALS: There are no significant adrenal masses. KIDNEYS:No cysts evident. No solid renal masses. No calculi nor hydronephrosis.. ABDOMINAL AORTA: Abdominal aorta is not enlarged. LYMPH NODES:There is no retroperitoneal nor paraaortic adenopathy. ABDOMINAL WALL: No evidence of significant anterior abdominal wall nor inguinal hernia. GI: There is no evidence of bowel obstruction, free air, nor abscess. PELVIS: GI: No evidence of appendicitis.There are few sigmoid diverticuli. No obvious acute diverticulitis. LYMPH NODES: There is no intrapelvic nor inguinal adenopathy. REPRODUCTIVE: Age-appropriate URINARY BLADDER: No calculi nor obvious masses evident OSSEOUS: Sclerotic density on the left side of the symphysis pubis. Advanced disc space narrowing at L4-5 level and mild degenerative anterolisthesis L4 upon L5 due to f acet arthropathy. Milder anterolisthesis of L5 upon S1, also related to facet arthropathy. Mild dis c space narrowing at this level. Mild retrolisthesis of L1 upon L2. IMPRESSION: 1. There is a moderate size hiatal hernia. This also some mural thickening in the proximal stomach. Recommend endoscopy to rule out any neoplasm at this level. 2. Gallbladder slightly prominent. No radiopaque calculi seen. No prominent dilatation of the bilia ry tree, both intra and extrahepatic. 3. 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 4. Other findings as above. RADIATION DOSE DELIVERED: 1,057.49mGy.cm Total DLP DATA REPOSITORY: All CT scans at this facility are submitted to the National Radiology Data Registry (NRDR) Dose Index Registry (DIR) with the [employer] (ACR). RADIATION OPTIMIZATION: All CT scans at this facility use at least one of these dose optimization te chniques: automated exposure control; mA and/or kV adjustment per patient size (includes targeted exa ms where dose is matched to clinical indication); or iterative reconstruction.
[2021-12-07 06:31] LABS: Bacteria Few HPF (Negative); C & S Indicated? No; Casts Negative LPF (Negative); Crystals Negative HPF (Negative); Epithelial Cells Few HPF (Negative); Mucus Negative (Negative); RBC 0-2 HPF (0-2); WBC Negative HPF (0-5)
--- NOTE | 2021-12-07 06:38 | ED.GENADUL_ITS ---
Discharge Plan Disposition Patient Disposition: HOME Condition: Improving Discharge Details Clinical Impression: Cholelithiasis, Abdominal pain, vomiting, and diarrhea, Biliary colic Primary Care Provider: Mitch Ceron ED Provider: Ifrah Mckeon Home Meds and New Rx's Prescriptions: New ondansetron 4 mg tablet,disintegrating 4 mg PO TID PRN (Reason: nausea and vomiting) Qty: 6 0RF Continued pantoprazole 40 mg tablet,delayed release (DR/EC) 40 mg PO BID venlafaxine 150 MG capsule,extended release 24hr 150 mg PO BID pindolol 5 MG tablet 1 tab PO BID aripiprazole 5 MG tablet 1 tab PO DAILY Discharge Instructions Instructions: Biliary Colic (ED), Gallstones (ED) Additional Instructions: Your imaging yesterday and today revealed that you have gallstones which are likely the source of your pain. Drink plenty of fluids and get plenty of rest. Alternate tylenol and motrin as needed and directed for pain. Take the tramadol for pain not relieved with Tylenol or Motrin. You have been placed on general surgery's follow-up list for reevaluation in the next 1 to 2 weeks. Return immediately to the emergency department if you develop any worsening or new concerning symptoms such as fever, worsening pain, persistent vomiting or any other concerns. Referrals: Murali Fajardo MD [ [facility] STAFF PHYSICIAN] - Discharge Data Discharge Date/Time-TO BE ENTERED AT DEPARTURE: 12/07/21 11:10 Discharge Physician: Ifrah Mckeon Medical Decision Making <Rebel Nix MD - Last Filed: 12/07/21 07:25> 71-year-old female reports approximately 1 week of epigastric pain that is associated with nausea. She states she has noted that her stools have been slightly chalky in appearance. She was seen at an urgent care and had an ultrasound performed performed on December 06. This noted cholelithiasis.?Multiple shadowing gallstones noted.? Gallbladder wall thickness is minimally prominent.? Common hepatic duct is slightly dilated.? Recommend follow-up CT. Patient arrives slightly hypertensive but afebrile and oxygenating normally. She does demonstrate upper abdominal discomfort on palpation. IV access established, screening labs obtained, patient given antiemetic and fluids. She is referred for laboratory testing and CT imaging. Lab: White blood cell count is 8, hematocrit 43, platelets 249. Chemistries note unremarkable electrolytes, AST 41, ALT 189, alk phos 197. Total bili is 0.8. Patient had lab work on December 03 which showed an AST of 310, ALT of 594, and total bili 5.3. Will sign the patient out to Dr. Mckeon pending review of CT imaging. <Ifrah Mckeon, DO - Last Filed: 12/08/21 09:02> Dr. Nix 71-year-old female reports approximately 1 week of epigastric pain that is associated with nausea. She states she has noted that her stools have been slightly chalky in appearance. She was seen at an urgent care and had an ultrasound performed performed on December 06. This noted cholelithiasis.?Multiple shadowing gallstones noted.? Gallbladder wall thickness is minimally prominent.? Common hepatic duct is slightly dilated.? Recommend follow-up CT. Patient arrives slightly hypertensive but afebrile and oxygenating normally. She does demonstrate upper abdominal discomfort on palpation. IV access established, screening labs obtained, patient given antiemetic and fluids. She is referred for laboratory testing and CT imaging. Lab: White blood cell count is 8, hematocrit 43, platelets 249. Chemistries note unremarkable electrolytes, AST 41, ALT 189, alk phos 197. Total bili is 0.8. Patient had lab work on December 03 which showed an AST of 310, ALT of 594, and total bili 5.3. Will sign the patient out to Dr. Mckeon pending review of CT imaging. Dr. Mckeon 0800 -- Please see Dr. Nix's note for initial presentation, exam and plan. 929 -- CT reviewed and notes gallbladder wall thickening and mild adjacent inflammatory changes but no radiopaque gallstones identified. There is also, mild duct distended proximally measuring 9 mm but no ductal dilatation or stone identified. Review of labs noted overall improvement in her liver enzymes and a now normal bilirubin. Her hepatitis panel from 12/03 was negative. She also has a normal white blood cell count and is afebrile. She states her pain was 3/10 is slightly increasing to 4/10. We will give a dose of Toradol IV. Overall patient feels comfortable going home. [id number] -- Case discussed with Dr. Fajardo who reviewed imaging and also evaluated patient at bedside. There is no indication for emergent cholecystectomy and patient can be discharged home with plan for limiting fried and fatty foods. Patient had some improvement with Toradol but still has some pain but overall appears comfortable and nontoxic and is laughing and speaking with family at bedside. We will give a dose of tramadol now and send home with tramadol bottle. Patient placed on general surgery follow-up list for reevaluation and likely scheduling an elective cholecystectomy. Usual and customary return precautions given prior to discharge. Medical Records Medical records reviewed: Yes I reviewed the patient's medical records. Medical records narrative: 12/06/21 US IMPRESSION: 1.? There is cholelithiasis.? Multiple shadowing gallstones noted.? Gallbladder wall thickness is minimally prominent.? Common hepatic duct is slightly dilated.? Recommend follow-up CT scan to ensure that there are no calculi in the lower CBD. 2.? Hepatic steatosis noted.? Correlation appropriate hepatic blood work noted.? No discrete focal hepatic lesions identified. 3.? There is no ascites. Imaging Data Radiologic Study: Radiologist's impression: CT Abdomen And Pelvis With Contrast Exam date and time: 12/07/2021 8:24 AM Age: 71 years old Clinical indication: Pain; Other: Ruq / epigastric TECHNIQUE: Imaging protocol: Computed tomography of the abdomen and pelvis with contrast. COMPARISON: US ABDOMEN LIMITED 12/06/2021 9:09 AM FINDINGS: Diaphragm: Moderate hiatal hernia. Liver: Fatty infiltration of the liver. Gallbladder and bile ducts: Gallbladder wall thickening and mild adjacent inflammatory changes, particularly along the gallbladder neck. No radiopaque gallstone identified. Common bile duct distended proximally, measuring 9 mm. No ductal dilatation at the level of the pancreatic head. No radiopaque ductal stone. Pancreas: Normal. No ductal dilation. Spleen: Normal. No splenomegaly. Adrenal glands: Normal. No mass. Kidneys and ureters: Normal. No hydronephrosis. Stomach and bowel: Unremarkable. No obstruction. No mucosal thickening. Appendix: No evidence of appendicitis. Intraperitoneal space: Unremarkable. No free air. No significant fluid collection. Vasculature: Unremarkable. No abdominal aortic aneurysm. Lymph nodes: Unremarkable. No enlarged lymph nodes. Urinary bladder: Unremarkable as visualized. Reproductive: Unremarkable as visualized. Bones/joints: Unremarkable. No acute fracture. Soft tissues: Unremarkable. IMPRESSION: 1. Moderate hiatal hernia. 2. Gallbladder wall thickening and mild adjacent inflammatory changes, particularly along the gallbladder neck. No radiopaque gallstone identified. 3. Common bile duct distended proximally, measuring 9 mm. No ductal dilatation at the level of the pancreatic head. No radiopaque ductal stone. 4. Fatty infiltration of the liver. Lab Data Lab results reviewed: Yes I reviewed the patient's lab results. Labs: Laboratory Tests Range/Units 12/07/21 12/07/21 12/07/21 06:21 06:25 06:25 WBC (4.4-10.8) 10^3/uL 8.85 RBC (3.93-5.22) 10^6/uL 4.76 Hgb (11.2-15.7) g/dL 14.2 Hct (36.0-46.0) % 43.3 MCV (80-95) fL 91 MCH (27.0-33.0) pg 29.8 MCHC (32.0-36.0) % 32.8 RDW (11.7-14.6) % 12.5 Plt Count (130-400) 10^3/uL 249 MPV (8.0-11.0) fL 9.4 Immature Gran % 0.2 Neutrophils % 76.4 Lymphocytes % 14.7 Monocytes % 6.4 Eosinophils % 1.5 Basophils % 0.8 Nucleated RBC % (0.0-0.3) % 0.0 Absolute Neutrophils (1.2-6.7) 10^3/uL 6.76 H Absolute Lymphocytes (1.2-3.4) 10^3/uL 1.30 Absolute Monocytes (0.1-0.8) 10^3/uL 0.57 Absolute Eosinophils (0.0-0.7) 10^3/uL 0.13 Absolute Basophils (0.0-0.2) 10^3/uL 0.07 Sodium (136-145) mmol/L 137 Potassium (3.5-5.1) mmol/L 4.2 Chloride (98-107) mmol/L 100 Carbon Dioxide (21.0-32.0) mmol/L 27.8 Anion Gap (3-11) mmol/L 9.2 BUN (7-18) mg/dL 13 Creatinine (0.55-1.02) mg/dL 0.7 Est GFR (CKD-EPI 2020) (mL/min/1.73m2) 91.26 Glucose (74-106) mg/dL 137 H Calcium (8.5-10.1) mg/dL 9.9 Magnesium (1.8-2.4) mg/dL 1.8 Total Bilirubin (0.2-1.0) mg/dL 0.8 AST (15-37) U/L 41 H ALT (14-59) U/L 189 H Alkaline Phosphatase (46-116) U/L 197 H Total Protein (6.4-8.2) g/dL 8.1 Albumin (3.4-5.0) g/dL 3.8 Lipase (73-393) U/L 280 Urine Color (Yellow) Yellow Urine Clarity (Clear) Clear Urine pH (5-8) 5.5 Ur Specific Fletcher (1.005-1.025) >= 1.030 H Urine Protein (Negative) mg/dL Negative Urine Ketones (Negative) mg/dL Negative Urine Blood (Negative) Trace-intact H Urine Nitrite (Negative) Negative Urine Bilirubin (Negative) Negative Urine Urobilinogen (Up TO 0.2) EU/dL 0.2 Ur Leukocyte Esterase (Negative) Negative Urine RBC (0-2) HPF 0-2 Urine WBC (0-5) HPF Negative Ur Epithelial Cells (Negative) HPF Few Urine Crystals (Negative) HPF Negative Urine Bacteria (Negative) HPF Few Urine Casts (Negative) LPF Negative Urine Mucus (Negative) Negative Ur Culture Indicated? No Urine Glucose (Negative) mg/dL Negative Range/Units 12/07/21 06:34 WBC (4.4-10.8) 10^3/uL RBC (3.93-5.22) 10^6/uL Hgb (11.2-15.7) g/dL Hct (36.0-46.0) % MCV (80-95) fL MCH (27.0-33.0) pg MCHC (32.0-36.0) % RDW (11.7-14.6) % Plt Count (130-400) 10^3/uL MPV (8.0-11.0) fL Immature Gran % Neutrophils % Lymphocytes % Monocytes % Eosinophils % Basophils % Nucleated RBC % (0.0-0.3) % Absolute Neutrophils (1.2-6.7) 10^3/uL Absolute Lymphocytes (1.2-3.4) 10^3/uL Absolute Monocytes (0.1-0.8) 10^3/uL Absolute Eosinophils (0.0-0.7) 10^3/uL Absolute Basophils (0.0-0.2) 10^3/uL Sodium (136-145) mmol/L Potassium (3.5-5.1) mmol/L Chloride (98-107) mmol/L Carbon Dioxide (21.0-32.0) mmol/L Anion Gap (3-11) mmol/L BUN (7-18) mg/dL Creatinine (0.55-1.02) mg/dL Est GFR (CKD-EPI 2020) (mL/min/1.73m2) Glucose (74-106) mg/dL Calcium (8.5-10.1) mg/dL Magnesium (1.8-2.4) mg/dL Total Bilirubin (0.2-1.0) mg/dL AST (15-37) U/L ALT (14-59) U/L Alkaline Phosphatase (46-116) U/L Total Protein (6.4-8.2) g/dL Albumin (3.4-5.0) g/dL Lipase (73-393) U/L Urine Color (Yellow) Cancelled Urine Clarity (Clear) Cancelled Urine pH (5-8) Cancelled Ur Specific Fletcher (1.005-1.025) Cancelled Urine Protein (Negative) mg/dL Cancelled Urine Ketones (Negative) mg/dL Cancelled Urine Blood (Negative) Cancelled Urine Nitrite (Negative) Cancelled Urine Bilirubin (Negative) Cancelled Urine Urobilinogen (Up TO 0.2) EU/dL Cancelled Ur Leukocyte Esterase (Negative) Cancelled Urine RBC (0-2) HPF Urine WBC (0-5) HPF Ur Epithelial Cells (Negative) HPF Urine Crystals (Negative) HPF Urine Bacteria (Negative) HPF Urine Casts (Negative) LPF Urine Mucus (Negative) Ur Culture Indicated? Urine Glucose (Negative) mg/dL Cancelled HPI <Rebel Nix MD - Last Filed: 12/07/21 07:25> General Mode of arrival: ambulatory . Date/Time Provider Initiated Documentation: 12/07/21 06:26 . Limitations to Documentation: no limitations . Information obtained by: patient . History of Present Illness 71 year old F presents to the emergency department with the chief complaint of 1wk abd pain, described as moderate, Quality is described as dull, and is localized to the abdomen. Patient reports no radiation. Patient started experiencing this day(s) and it has been intermittent. No relieving factors improve symptom(s), No exacerbating factors reported . Patient notes nausea/vomiting; denies fever/chills. Patient did receive the following treatments prior to arrival, none Related Data Home Medications Medication Instructions Recorded Confirmed aripiprazole 5 mg tablet 1 tab PO DAILY 03/24/16 12/07/21 pindolol 5 mg tablet 1 tab PO BID 03/24/16 12/07/21 venlafaxine 150 mg 150 mg PO BID 03/24/16 12/07/21 capsule,extended release 24 hr pantoprazole 40 mg tablet,delayed 40 mg PO BID 09/11/21 12/07/21 release ondansetron 4 mg disintegrating 4 mg PO TID PRN nausea and 12/07/21 tablet vomiting #6 tabs Previous Rx's Medication Instructions Recorded ondansetron 4 mg disintegrating 4 mg PO TID PRN nausea and 12/07/21 tablet vomiting #6 tabs Allergies Allergy/AdvReac Type Severity Reaction Status Date / Time metronidazole [From Flagyl] AdvReac Unknown Neuropathy Verified 12/07/21 07:12 General Stated Complaint: Abd Prob CARTER: 3 Review of Systems <Rebel Nix MD - Last Filed: 12/07/21 07:25> Narrative: Nauseated. Stools have been chalky. Feels that she has had a small amount of weight loss. 7 systems reviewed and otherwise negative PFSH <Rebel Nix MD - Last Filed: 12/07/21 07:25> All Active Problems (Updated 12/07/21 @ 10:49 by Ifrah Mckeon DO) Prediabetes (Acute) A1C 5.8 ON 09/09/21 Hyperlipidemia (Acute) GERD (gastroesophageal reflux disease) (Chronic) Localized osteoarthritis of right knee (Acute) Cholelithiasis (Acute) Abdominal pain, vomiting, and diarrhea (Acute) Biliary colic (Acute) Medical History Tony esophagus Esophageal obstruction (11/15/15) Major depression Social History Smoking/Tobacco Use Status: Never Smoking risk assessment performed?: Yes Alcohol Intake: current Alcohol Intake frequency: a few times a week Drug use: Never Substance use type: does not use Do you feel safe at home: Yes Do you feel safe in your relationship?: Yes Exam <Rebel Nix MD - Last Filed: 12/07/21 07:25> Narrative Exam Narrative: GEN: awake, alert, oriented 3. Pleasant, well groomed, interactive. HEAD: Normocephalic, atraumatic ENT: Mucous membranes moist, External ear exam unremarkable EYES: PERRL, EOMI NECK: Full ROM, no SHAWN, no menigismus CHEST/RESP: Nontender, clear to auscultation bilateral, no wheeze/rhonchi/rales CARDIOVASCULAR: RRR, no murmur, rub pasquale. 2+ Rad pulse bilateral ABDOMEN: Soft, tender in the epigastrium and right upper quadrant, no significant rebound appreciated, no mass. +Bowel sounds EXT: Full ROM, no edema, no rash Neuro: Grossly normal neurologic exam, conversant, interactive. Psych: Speech fluent, thoughts congruent, affect normal Course <Rebel Nix MD - Last Filed: 12/07/21 07:25> Vital Signs Vital signs: Vital Signs Temperature 37.2 C 12/07/21 06:03 Pulse 76 12/07/21 06:03 Respiratory Rate 18 12/07/21 06:03 Blood Pressure 185/85 H 12/07/21 06:03 Pulse Oximetry 98 12/07/21 06:03 Temperature 37.2 C 12/07/21 06:03 Temperature Source Oral 12/07/21 06:03 Pulse 76 12/07/21 06:03 Respiratory Rate 18 12/07/21 06:03 Respiratory Effort Non-Labored 12/07/21 06:11 Blood Pressure 185/85 H 12/07/21 06:03 Pulse Oximetry 98 12/07/21 06:03 Pain Level 8 12/07/21 06:03 Lab/Test Results Lab/Test Results: Laboratory Tests Range/Units 12/07/21 06:21 Urine Color (Yellow) Yellow Urine Clarity (Clear) Clear Urine pH (5-8) 5.5 Ur Specific Fletcher (1.005-1.025) >= 1.030 H Urine Protein (Negative) mg/dL Negative Urine Ketones (Negative) mg/dL Negative Urine Blood (Negative) Trace-intact H Urine Nitrite (Negative) Negative Urine Bilirubin (Negative) Negative Urine Urobilinogen (Up TO 0.2) EU/dL 0.2 Ur Leukocyte Esterase (Negative) Negative Urine RBC (0-2) HPF 0-2 Urine WBC (0-5) HPF Negative Ur Epithelial Cells (Negative) HPF Few Urine Crystals (Negative) HPF Negative Urine Bacteria (Negative) HPF Few Urine Casts (Negative) LPF Negative Urine Mucus (Negative) Negative Ur Culture Indicated? No Urine Glucose (Negative) mg/dL Negative Sign Out <Rebel Nix MD - Last Filed: 12/07/21 07:25> Sign Out Data: Sign Out Comment: Epigastric pain, abnl US 12/06. Followup CT images Last updated by Rebel Nix MD at 12/07/21 07:04 PAWSS <Rebel Nix MD - Last Filed: 12/07/21 07:25> Have you Been Recently Intoxicated or Drunk Within the Last 30 days?: No Have you Ever Experienced Previous Episodes of Alcohol Withdrawal?: No Have you ever Experienced Withdrawal Seizures?: No Have you ever Experienced Delirium Tremens(DT)s?: No Have you ever undergone Alcohol Rehabilitation Treatment (i.e, inpt ot outpatient treatment programs)?: No Have you ever Experienced Blackouts?: No Have you ever Combined Alcohol with other Downers within the last 90 days?: No Have you ever Combined Alcohol with any other Substance of Abuse during the last 90 days?: No Positive Blood Alcohol level on Presentation? [PCS.BAL]: No Evidence of Increased Autonomic Activity (i.e. HR>120, tremor, sweating, agitation, nausea)?: No Result: 0 <Ifrah Mckeon DO - Last Filed: 12/08/21 09:02> Result: 0
[2021-12-07] MEDS: Normal Saline 1,000 ML 125 ML IV (06:40)
[2021-12-07] MEDS: Ondansetron 4 MG/2 ML VIAL IVP (06:41)
[2021-12-07 06:44] LABS: Abs Immature Grans 0.02 10^3/uL (0.0-0.06); Absolute Basophil Count 0.07 10^3/uL (0.0-0.2); Absolute Eosinophil Count 0.13 10^3/uL (0.0-0.7); Absolute Monocyte Count 0.57 10^3/uL (0.1-0.8); Absolute Neutrophil Count 6.76 10^3/uL (1.2-6.7); Basophils % 0.8; Eosinophils % 1.5; HCT 43.3 % (36.0-46.0); HGB 14.2 g/dL (11.2-15.7); Immature Grans % 0.2; Lymphocytes % 14.7; MCH 29.8 pg (27.0-33.0); MCHC 32.8 % (32.0-36.0); MCV 91 fL (80-95); MPV 9.4 fL (8.0-11.0); Monocytes % 6.4; Neutrophils % 76.4; Platelet Count 249 10^3/uL (130-400); RBC 4.76 10^6/uL (3.93-5.22); RDW 12.5 % (11.7-14.6); RDW-SD 41.7 fL; WBC 8.85 10^3/uL (4.4-10.8)
[2021-12-07 07:07] LABS: ALT 189 U/L (14-59); AST 41 U/L (15-37); Albumin 3.8 g/dL (3.4-5.0); Alkaline Phosphatase 197 U/L (46-116); Anion Gap 9.2 mmol/L (3-11); BUN 13 mg/dL (7-18); Bilirubin, Total 0.8 mg/dL (0.2-1.0); CO2 27.8 mmol/L (21.0-32.0); CREATININE 0.7 mg/dL (0.55-1.02); Calcium 9.9 mg/dL (8.5-10.1); Chloride 100 mmol/L (98-107); Estimated GFR 91.26 (mL/min/1.73m2); Glucose 137 mg/dL (74-106); Lipase 280 U/L (73-393); Magnesium 1.8 mg/dL (1.8-2.4); Potassium 4.2 mmol/L (3.5-5.1); Sodium 137 mmol/L (136-145); Total Protein 8.1 g/dL (6.4-8.2)
[2021-12-07] MEDS: Omnipaque 350 MG/ML 100 ML BTL IJ (08:29)
[2021-12-07] MEDS: Breeza Beverage 473 ML BTL PO (08:29)
--- NOTE | 2021-12-07 09:41 | DI.VRAD_ITS ---
PROCEDURE INFORMATION: Exam: CT Abdomen And Pelvis With Contrast Exam date and time: 12/07/2021 8:24 AM Age: 71 years old Clinical indication: Pain; Other: Ruq / epigastric TECHNIQUE: Imaging protocol: Computed tomography of the abdomen and pelvis with contrast. COMPARISON: US ABDOMEN LIMITED 12/06/2021 9:09 AM FINDINGS: Diaphragm: Moderate hiatal hernia. Liver: Fatty infiltration of the liver. Gallbladder and bile ducts: Gallbladder wall thickening and mild adjacent inflammatory changes, particularly along the gallbladder neck. No radiopaque gallstone identified. Common bile duct distended proximally, measuring 9 mm. No ductal dilatation at the level of the pancreatic head. No radiopaque ductal stone. Pancreas: Normal. No ductal dilation. Spleen: Normal. No splenomegaly. Adrenal glands: Normal. No mass. Kidneys and ureters: Normal. No hydronephrosis. Stomach and bowel: Unremarkable. No obstruction. No mucosal thickening. Appendix: No evidence of appendicitis. Intraperitoneal space: Unremarkable. No free air. No significant fluid collection. Vasculature: Unremarkable. No abdominal aortic aneurysm. Lymph nodes: Unremarkable. No enlarged lymph nodes. Urinary bladder: Unremarkable as visualized. Reproductive: Unremarkable as visualized. Bones/joints: Unremarkable. No acute fracture. Soft tissues: Unremarkable. IMPRESSION: 1. Moderate hiatal hernia. 2. Gallbladder wall thickening and mild adjacent inflammatory changes, particularly along the gallbladder neck. No radiopaque gallstone identified. 3. Common bile duct distended proximally, measuring 9 mm. No ductal dilatation at the level of the pancreatic head. No radiopaque ductal stone. 4. Fatty infiltration of the liver. Dictated and Authenticated by: Marybeth Valentine MD. Ordering:SUZETTE Luque MD
[2021-12-07] MEDS: Ketorolac 30 MG/ML VIAL IVP (10:00)
--- NOTE | 2021-12-07 11:03 | NUR.NOTE ---
Nursing Note:patient to follow up in 1-2 wks with General Surgery- Dr. Fajardo consulted in the ER 12/07/21 p/Dr. Mckeon
[2021-12-07] MEDS: traMADol 50 MG TAB PO (11:06)
[2021-12-07 11:11] VITALS: BP 185/85; PULSE 76; RESP 18; TEMP 37.2; O2SAT 98
== END 2021-12-07 11:10 | disposition home or self-care (01) ==
PROVIDERS: Emergency Medicine; Emergency Provider Physician Assistant; PCP Family Medicine
DX: K80.70 Calculus of gallbladder and bile duct without cholecystitis without obstruction (principal); R19.7 Diarrhea, unspecified
CPT/HCPCS: 80053; 83690; 96361; 96374; 96375; 99285; 74177; 81003; 81015; 83735; 85025; 99284; J1885; J2405; J3490

== ENCOUNTER 2021-12-11 18:21 | Outpatient (REF) | payer MEDICARE, BC, SELFPAY ==
[2021-12-11 15:44] LABS: Abs Immature Grans 0.01 10^3/uL (0.0-0.06); Absolute Basophil Count 0.05 10^3/uL (0.0-0.2); Absolute Eosinophil Count 0.16 10^3/uL (0.0-0.7); Absolute Lymphocyte Count 1.21 10^3/uL (1.2-3.4); Absolute Monocyte Count 0.56 10^3/uL (0.1-0.8); Basophils % 0.8; Eosinophils % 2.5; HCT 38.6 % (36.0-46.0); HGB 12.7 g/dL (11.2-15.7); Immature Grans % 0.2; Lymphocytes % 19.2; MCH 30.4 pg (27.0-33.0); MCHC 32.9 % (32.0-36.0); MCV 92 fL (80-95); MPV 9.8 fL (8.0-11.0); Monocytes % 8.9; Neutrophils % 68.4; Platelet Count 275 10^3/uL (130-400); RBC 4.18 10^6/uL (3.93-5.22); RDW 12.7 % (11.7-14.6); WBC 6.29 10^3/uL (4.4-10.8)
[2021-12-11 16:02] LABS: ALT 466 U/L (14-59); AST 208 U/L (15-37); Albumin 3.5 g/dL (3.4-5.0); Alkaline Phosphatase 466 U/L (46-116); Anion Gap 7.9 mmol/L (3-11); BUN 10 mg/dL (7-18); Bilirubin, Total 3.3 mg/dL (0.2-1.0); CO2 28.1 mmol/L (21.0-32.0); CREATININE 0.8 mg/dL (0.55-1.02); Calcium 9.8 mg/dL (8.5-10.1); Chloride 98 mmol/L (98-107); Estimated GFR 77.75 (mL/min/1.73m2); Glucose 113 mg/dL (74-106); Potassium 4.9 mmol/L (3.5-5.1); Sodium 134 mmol/L (136-145); Total Protein 7.7 g/dL (6.4-8.2)
[2021-12-11 16:49] LABS: Bilirubin Negative (Negative); Blood Negative (Negative); Clarity Clear (Clear); Glucose Negative (Negative); Ketones Negative (Negative); Leukocyte Esterase Negative (Negative); Nitrite Negative (Negative); Specific Gravity <= 1.005 (1.005-1.025)
== END 2021-12-11 18:22 | disposition home or self-care (01) ==
LOC: NCHCN 18:21
PROVIDERS: PCP Family Medicine; Visit Provider Family Medicine
DX: R17 Unspecified jaundice (principal)
CPT/HCPCS: 80053; 81003; 85025

== ENCOUNTER → 2021-12-16 08:54 | Outpatient (BNVA) | payer MEDICARE, BC, SELFPAY | PROVIDERS: PCP Family Medicine; Referring Provider Family Medicine; Visit Provider Surgery | DX: K82.9 Disease of gallbladder, unspecified (principal) | CPT/HCPCS: 99214 ==

== ENCOUNTER 2022-01-10 07:29 | Day surgery (SDC) | payer MEDICARE, BC, SELFPAY ==
[2022-01-10] VITALS (9 sets, daily range): BP systolic 132–174; BP diastolic 44–96; PULSE 57–68; RESP 14–18; TEMP 36–36.7; O2SAT 98–100; BMI 30.7
--- NOTE | 2022-01-10 00:21 | ROE_ITS ---
Operative Note Operative Note DATE OF PROCEDURE: 01/10/22 PRE-OP DIAGNOSIS: Chronic cholecystitis POST-OP DIAGNOSIS: same PROCEDURE: Laparoscopic subtotal cholecystectomy SURGEON: Murali Fajardo APARTMENT ASSISTANT MANAGER: Fletcher Bangura ANESTHESIA TYPE: Local By Surgeon and General LMA/ETT Refer to Anesthesia Record ESTIMATED BLOOD LOSS: 75 PATHOLOGY: other (Gallbladder) COMPLICATIONS: Other (Spilled gallstones) Patient was transported to: PACU Patient's condition: stable Indications: Woodrow is a 71-year-old woman with chronic cholecystitis. She presents for elective cholecystectomy Findings: Chronically inflamed and severely contracted gallbladder packed with gallstones Procedure Description: After the induction of general anesthesia, I prepped and draped the anterior abdominal wall in the usual fashion. Next, I made a supraumbilical midline incision and dissected down to the fascia. I grasped the fascia with Middleton clamps elevated, and incised it sharply. I entered the peritoneal cavity under direct vision. I fixed a 12 mm port in the supraumbilical position. Next, I delivered a 5 mm 30 degree scope into the peritoneal cavity. Then, under direct vision, I inserted 5 mm ports in the midepigastric right midclavicular and right anterior axillary line positions. I then placed the patient in some steep reverse Trendelenburg positioning with left side down and began dissection. The gallbladder was quite contracted, and tucked up under the liver edge. Using tedious dissection, I was able to identify the lateral margin of the gallbladder and dissect down towards the infundibulum. Unfortunately, the gallbladder was quite inflamed and thickened, and the confluence of the infundibulum and the cystic duct was nearly obliterated with dense adhesions. Therefore, in order to maximize safety of surgery, I turned my attention to the dome of the gallbladder and began dissecting it off of the gallbladder fossa using electrocautery. Using a dome down approach I was able to mobilize the entire length of the gallbladder down towards the infundibulum. During the course of this dissection, it was impossible to identify the posterior wall of the gallbladder against the hepatic gallbladder fossa wall. This did create a cholecystotomy, and multiple gallstones were spilled. I was able to continued the dissection down towards the confluence of the gallbladder body with the cystic duct, and once it was completely mobilized from the gallbladder fossa, I exchanged the 5 mm midepigastric port for 12 mm operating port. Next, I delivered a Endo RON stapler with a purple load into the peritoneal cavity. I divided the distal gallbladder body from the cystic duct with a RON stapler. This completed a subtotal cholecystectomy. The remaining gallbladder segment was quite small, and soft, and I do not have high suspicion for any choledocholithiasis. I examined the surgical field, and it was hemostatic. Next, the gallbladder was placed into an Endo Catch bag and removed by way of the umbilical port site. I then irrigated the surgical field and removed as many gallstones as I could. Once this was complete, I removed the remaining ports under the direct vision of the laparoscope. I removed the umbilical port site and closed the fascia with interrupted Vicryl stitches. The skin and subcutaneous tissues were irrigated and closed with running subcuticular sutures. Bandages were applied, the patient was woken, transferred to the recovery unit.
--- NOTE | 2022-01-10 00:21 | W.PM.DSUDISC ---
Discharge Plan Disposition Patient Disposition: HOME Condition: Good Discharge Details Reason For Visit: Cholecystectomy Attending Provider: Murali Fajardo Primary Care Provider: Mitch Ceron Home Meds and New Rx's Prescriptions: New tramadol 50 mg tablet 50 mg PO Q8H PRN (Reason: pain) Qty: 9 0RF Rx Instructions: Take 1 tablet by mouth as often as 8 hours as needed for severe pain. This medication can be addictive and should be used with caution. Continued pindolol 5 mg tablet 5 mg PO BID aripiprazole 5 mg tablet 5 mg PO DAILY venlafaxine 150 MG capsule,extended release 24hr 150 mg PO BID pantoprazole 40 mg Tablet,Delayed Release (Dr/Ec) 40 mg PO DAILY Discharge Instructions Instructions: Laparoscopic Cholecystectomy (GEN) Additional Instructions: 1. Resume all of your medications. 2. Okay to use tylenol and ibuprofen over the counter as needed. 3. Use as needed for sevre pain. 4. Leave bandage in place for 24 hours, then remove. 5. Shower with warm soapy water. Pat dry. Use a bandaid if needed to protect your clothing. 6. No soaking or tub baths until I see you in the office. 7. No heavy lifting until I see you in the office. 8.Call the office (or go directly to the emergency room after hours) if you notice any of the following: Develop chills (warm to touch), or if you have a thermometer and your temperature is above 101 Difficulty breathing or difficultly swallowing Persistent vomiting Any bleeding ? exceeding one tablespoon 6. Call your physician if the site where your intravenous was started becomes red, swollen, painful, and warm to touch. Referrals: Murali Fajardo MD [ [facility] STAFF PHYSICIAN] - (10-14 days for follow up) Activity:: no lifting Remove Dressings/Wound Care:: 24 hours Shower/Bathe:: 24 hours Diet:: As Tolerated Discharge Orders Discharge Orders: Discharge Order (Routine); Ordered 01/10/22 Ordered By: Murali Fajardo DS: Diagnosis Discharge Diagnosis (1) Cholelithiasis: Status: Acute Asessment and Plan: Post-op follow up 10-14 days
[2022-01-10] MEDS: Acetaminophen 500 MG TAB 1000 MG PO (08:03)
[2022-01-10] MEDS: Celecoxib 200 MG CAP PO (08:04)
[2022-01-10] MEDS: Gabapentin 300 MG CAP 600 MG PO (08:04)
[2022-01-10] MEDS: Lactated Ringers 1,000 ML 80 ML IV (08:06)
--- NOTE | 2022-01-10 08:28 | ANES.PREOP_ITS ---
General Info Date of Service Date Performed: 01/10/22 Height: 5 ft 4 in Weight: 81.193 kg Body Mass Index (BMI): 30.7 Surgical Procedure: Operation Date: 01/10/22 09:10 Proposed Procedure Side Surgeon p Cholecystectomy Laparoscopic Murali Fajardo MD Meds Allergies and Home Medications Allergies Allergy/AdvReac Type Severity Reaction Status Date / Time metronidazole [From Flagyl] AdvReac Unknown Neuropathy Verified 01/10/22 07:47 Home Medication Medication Instructions Recorded venlafaxine 150 mg 150 mg PO BID 03/24/16 capsule,extended release 24 hr aripiprazole 5 mg tablet 5 mg PO DAILY 12/12/21 pindolol 5 mg tablet 5 mg PO BID 12/12/21 pantoprazole 40 mg tablet,delayed 40 mg PO DAILY 01/10/22 release Current Visit Medications: Current Medications Generic Name Dose Route Start Last Admin Trade Name Freq PRN Reason Stop Dose Admin Acetaminophen 1,000 mg 01/10/22 06:00 01/10/22 08:03 Acetaminophen 500 Mg Tab PO 01/10/22 23:59 1,000 mg PREOP NANNETTE Administration Acetaminophen 650 mg 01/10/22 00:24 Acetaminophen 325 Mg Tab PO Q4H PRN PRN Celecoxib 200 mg 01/10/22 06:00 01/10/22 08:04 Celecoxib 200 Mg Cap PO 01/10/22 23:59 200 mg PREOP NANNETTE Administration Gabapentin 600 mg 01/10/22 06:00 01/10/22 08:04 Gabapentin 300 Mg Cap PO 01/10/22 23:59 600 mg PREOP NANNETTE Administration Ringer's Solution 1,000 mls @ 80 mls/hr 01/10/22 06:00 01/10/22 08:06 IV 01/10/22 23:59 80 mls/hr INFUSION NANNETTE Administration Cefazolin Sodium/Dextrose 2 gm in 50 mls @ 100 mls/hr 01/10/22 06:00 Ancef Duplex IVPB 01/10/22 23:59 PREOP NANNETTE Ondansetron HCl 8 mg/ Sodium 54 mls @ 200 mls/hr 01/10/22 00:24 Chloride IVPB Q6H PRN PRN IV Miscellaneous Supplies 1 each 01/10/22 06:00 Iv Access IV 01/10/22 23:59 DIRECTED NANNETTE Morphine Sulfate 2 mg 01/10/22 00:24 Morphine 4 Mg/Ml Syr IVP Q1H PRN PRN Oxycodone HCl 5 mg 01/10/22 00:24 Oxycodone 5 Mg Tab PO Q3H PRN PRN Pain Sodium Chloride 0 ml 01/10/22 06:00 Normal Saline Flush 10 Ml Syr IV 01/10/22 23:59 PRN PRN Sodium Chloride 0 ml 01/10/22 06:00 Normal Saline 10 Ml Vial IJ 01/10/22 23:59 DIRECTED PRN Sterile Water 0 ml 01/10/22 06:00 Water,Injection,Sterile 10 Ml Vial IJ 01/10/22 23:59 DIRECTED PRN PFSH Active Problems Active Problems: Problem Status Onset Code Prediabetes R73.03 Hyperlipidemia E78.5 GERD (gastroesophageal reflux disease) K21.9 Localized osteoarthritis of right knee M17.11 Painless jaundice R17 Cholelithiasis K80.20 Medical History Medical History Tony esophagus Esophageal obstruction (11/15/15) Hx of breast cancer remission for 30 years Major depression Surgical History Surgical History (Updated 01/10/22 @ 07:48 by Jennifer Humphries RN) H/O left mastectomy History of colonoscopy History of esophagogastroduodenoscopy (EGD) History of tonsillectomy and adenoidectomy Tobacco Smoking/Tobacco Use Status: Former Tobacco Use Alcohol Alcohol Intake: current Alcohol intake frequency: a few times a week Substance Use Substance use: Never Substance use type: does not use Vital Signs and Lab Results Vital Signs Most Recent Vital Signs in EMR: Most Recent Vital Signs Temp Pulse Resp BP Pulse Ox 36.7 C 59 L 16 132/74 99 01/10/22 07:49 01/10/22 07:49 01/10/22 07:49 01/10/22 07:49 01/10/22 07:49 Lab Results Blood Type / Crossmatch: No Data to Display Complete Blood Count: White Blood Count 6.29 10^3/uL (4.4-10.8) 12/11/21 11:00 Red Blood Count 4.18 10^6/uL (3.93-5.22) 12/11/21 11:00 Hemoglobin 12.7 g/dL (11.2-15.7) 12/11/21 11:00 Hematocrit 38.6 % (36.0-46.0) 12/11/21 11:00 Platelet Count 275 10^3/uL (130-400) 12/11/21 11:00 Complete Metabolic Panel: Sodium 134 mmol/L (136-145) L 12/11/21 11:00 Potassium 4.9 mmol/L (3.5-5.1) 12/11/21 11:00 Chloride 98 mmol/L (98-107) 12/11/21 11:00 Carbon Dioxide 28.1 mmol/L (21.0-32.0) 12/11/21 11:00 BUN 10 mg/dL (7-18) 12/11/21 11:00 Creatinine 0.8 mg/dL (0.55-1.02) 12/11/21 11:00 Est GFR (CKD-EPI 2020) 77.75 (mL/min/1.73m2) 12/11/21 11:00 Calcium 9.8 mg/dL (8.5-10.1) 12/11/21 11:00 Albumin 3.5 g/dL (3.4-5.0) 12/11/21 11:00 Glucose 113 mg/dL (74-106) H 12/11/21 11:00 Liver Function Panel: Alanine Aminotransferase (ALT/SGPT) 466 U/L (14-59) H 12/11/21 11:00 Aspartate Amino Transf (AST/SGOT) 208 U/L (15-37) H 12/11/21 11 :00 Coagulation Panel: No Data to Display Cardiac Panel: No Data to Display Arterial Blood Gas: No Data to Display Venous Blood Gas: No Data to Display Pancreas Panel: No Data to Display Thyroid Panel: No Data to Display Infectious Disease: No Data to Display Blood Cultures: No Data to Display Toxicology Panel: No Data to Display Anesthesia Assessment and Plan Anesthesia History Personal History: PONV Family History: No Family History of Anesthesia Complications Exercise Tolerance Exercise Tolerance: Metabolic Equivalents>4 Pertinent Negatives Pertinent Negatives: No Symptoms of GERD Cardiac & Pulmonary Exam Cardiac Exam: Normal S1/S2 Heart Sounds Pulmonary Exam: Clear Bilateral Breath Sounds Implantable Cardiac Device Does patient have a Pacemaker or an ICD?: No Airway Exam Known Difficult Airway: No Mallampati Class: 3 Mouth Opening: Normal (> 3cm) Thyromental Distance: Greater than 3 cm Neck Range of Motion: Full ROM Neck Circumference: Normal Teeth Condition: Normal Dentition ASA Classification ASA Score: ASA 2 Emergency Case?: No NPO Status NPO Status: NPO Clears >2 hours, Solids >8 hours Anesthesia Plan Resuscitation Status: Full Code Anesthesia Technique: General Anesthesia Airway Planned: Endotracheal Tube Monitors Used: Standard Monitors
[2022-01-10] MEDS: ceFAZolin 2 GM/50 ML BAG IVPB (10:11)
[2022-01-10] MEDS: Bupivacaine 0.25% Pres-Free 30 ML VIAL (11:00)
--- NOTE | 2022-01-10 11:45 | GB_PTH ---
PATIENT: Zoraida Arciniega LOC: [facility] U#:[id number] AGE/SX: 71/F ROOM: RE01/10/[address]: Murali Fajardo MD : [id number] BED: DIS: 01/10/2022 SPEC #: [id number] RECD: 01/10/22 13:29 STATUS: MOOK REQ #: [id number] DAYNA: 01/10/22 11:[address]: Murali Fajardo DEPT: Surgical Specimen RECD BY: Mariella Roberts ENTERED: 01/10/22 13:29 SP TYPE: GB OTHR DR: Mitch Ceron Tissues: 1 - GALLBLADDER Procedures: GROSS AND MICRO LEVEL 3 Comments: [id number]
[2022-01-10] MEDS: Ondansetron 4 MG/2 ML VIAL IVP (12:44)
[2022-01-10] MEDS: Normal Saline Flush 10 ML SYR IV (13:03)
[2022-01-10] MEDS: Droperidol 5 MG/2 ML VIAL 0.625 MG IVP (13:03)
--- NOTE | 2022-01-10 14:38 | W.ANESPOSTOP ---
Postoperative Evaluation Date, Time and Location Date Performed: 01/10/22 Time Performed: 14:38 Patient Location: Day Surgery Unit Vital Signs Most Recent Imported Vital Signs: Most Recent Vital Signs Temp Pulse Resp BP Pulse Ox 36.0 C L 68 16 154/76 H 100 01/10/22 14:10 01/10/22 14:10 01/10/22 14:10 01/10/22 14:10 01/10/22 14:10 Pain Score Most Recent Pain Score: Most Recent Pain Score Pain Level 1 01/10/22 14:10 Assessment Mental Status: Awake (Alert & Oriented to Patient Baseline) Airway and Respiratory Function: Patent airway with normal (patient baseline) respiratory exam Cardiovascular Function: Hemodynamically Stable Hydration Status: Adequately Hydrated Nausea & Vomiting: No Nausea or Vomiting Pain: Pt. Denies Any Pain Peripheral Nerve Block: Patient did not receive a nerve block
== END 2022-01-10 14:45 | disposition home or self-care (01) ==
PROVIDERS: PCP Family Medicine; Visit Provider Surgery
PROC: 0FT44ZZ Resection of Gallbladder, Percutaneous Endoscopic Approach (ICD-10-PCS; CPT 47562; principal; 2022-01-10 09:00)
DX: K80.12 Calculus of gallbladder with acute and chronic cholecystitis without obstruction (principal); R73.03 Prediabetes; K21.9 Gastro-esophageal reflux disease without esophagitis
CPT/HCPCS: 47562; 88304; J0690; J1100; J1790; J2405; J2704

== ENCOUNTER → 2022-01-22 08:46 | Outpatient (BNVA) | payer MEDICARE, BC, SELFPAY | PROVIDERS: PCP Family Medicine; Referring Provider Family Medicine; Visit Provider Surgery | DX: Z48.815 Encounter for surgical aftercare following surgery on the digestive system (principal) ==

== ENCOUNTER 2022-09-11 10:18 | Outpatient (REF) | payer MEDICARE, BC, SELFPAY ==
[2022-09-11 14:20] LABS: HCT 39.7 % (36.0-46.0); HGB 13.4 g/dL (11.2-15.7); MCH 30.8 pg (27.0-33.0); MCHC 33.8 % (32.0-36.0); MCV 91 fL (80-95); MPV 9.1 fL (8.0-11.0); Platelet Count 216 10^3/uL (130-400); RBC 4.35 10^6/uL (3.93-5.22); RDW 12.2 % (11.7-14.6); RDW-SD 40.7 fL; WBC 5.21 10^3/uL (4.4-10.8)
[2022-09-11 14:48] LABS: ALT 25 U/L (14-59); AST 20 U/L (15-37); Albumin 3.7 g/dL (3.4-5.0); Alkaline Phosphatase 76 U/L (46-116); Anion Gap 7.4 mmol/L (3-11); BUN 10 mg/dL (7-18); Bilirubin, Total 0.6 mg/dL (0.2-1.0); CO2 27.6 mmol/L (21.0-32.0); CREATININE 0.7 mg/dL (0.55-1.02); Calcium 9.3 mg/dL (8.5-10.1); Chloride 104 mmol/L (98-107); Glucose 115 mg/dL (74-106); Potassium 4.8 mmol/L (3.5-5.1); Sodium 139 mmol/L (136-145); TSH (W/Ref FT4) 1.15 uIU/mL (0.36-3.74); Total Protein 7.2 g/dL (6.4-8.2)
== END 2022-09-11 10:19 | disposition home or self-care (01) ==
LOC: NCHCN 10:18
PROVIDERS: PCP Family Medicine; Visit Provider Family Medicine
DX: E78.5 Hyperlipidemia, unspecified (principal); R73.03 Prediabetes; F32.89 Other specified depressive episodes
CPT/HCPCS: 80053; 85027; 84443

== ENCOUNTER 2022-09-16 00:53 | Outpatient (CLI) | payer MEDICARE, BC, SELFPAY ==
--- NOTE | 2022-09-16 08:35 | DI.RAD_ITS ---
Exam(s) XR SHOULDER LT COMPLETE 2+V EXAM: XR SHOULDER LT COMPLETE 2+V CLINICAL HISTORY: LT SHOULDER JOINT PAIN, M25.512. TECHNIQUE: 2D digital imaging was performed. Three views. COMPARISON: No exams were available for comparison FINDINGS: BONES: No acute fracture is present. No bony destructive lesion is seen. JOINTS: No dislocation present. There is severe narrowing of the glenohumeral joint space with a bon e-on-bone appearance. There is prominent spurring of the glenoid and humeral head with bony remodeli ng.. Subchondral cysts are seen. The AC joint shows mild degenerative changes. SOFT TISSUE: Normal. IMPRESSION: Severe degenerative changes of the glenohumeral joint. DATA REPOSITORY: RADIATION DOSE DELIVERED:
== END 2022-09-16 01:13 ==
LOC: DI 00:53
PROVIDERS: PCP Family Medicine; Visit Provider Family Medicine
DX: M19.012 Primary osteoarthritis, left shoulder (principal)
CPT/HCPCS: 73030

== ENCOUNTER 2022-10-31 09:37 | Day surgery (SDC) | payer MEDICARE, BC, SELFPAY ==
--- NOTE | 2022-10-31 06:45 | W.ANESPRE ---
General Info Date of Service Date Performed: 10/31/22 Height: 5 ft 4 in Weight: 81.193 kg Body Mass Index (BMI): 30.7 Surgical Procedure: Operation Date: 10/31/22 12:40 Proposed Procedure Side Surgeon p Cataract Extraction with IOL Implant Left Ok Bianchi MD Meds Allergies and Home Medications Allergies Allergy/AdvReac Type Severity Reaction Status Date / Time metronidazole [From Flagyl] AdvReac Unknown Neuropathy Verified 10/31/22 09:52 Home Medication Medication Instructions Recorded venlafaxine 150 mg 150 mg PO BID 03/24/16 capsule,extended release 24 hr aripiprazole 5 mg tablet 5 mg PO DAILY 12/12/21 pindolol 5 mg tablet 5 mg PO BID 12/12/21 pantoprazole 40 mg tablet,delayed 40 mg PO DAILY 01/10/22 release Current Visit Medications: Current Medications Generic Name Dose Route Start Last Admin Trade Name Freq PRN Reason Stop Dose Admin Acetaminophen 1,000 mg 10/31/22 06:00 Acetaminophen 500 Mg Tab PO 11/30/22 05:59 Q4H PRN PRN Balanced Salt Solution 500 ml 10/31/22 06:00 Balanced Salt Soln.-Plus 500 Ml Bag OP 11/30/22 05:59 DIRECTED NANNETTE Miscellaneous Medication 0 ml 10/31/22 06:00 Prednisolone 1%, Moxifloxacin 0.5%, Nepafenac 0.1% 5ml Btl OS 11/30/22 05:59 DIRECTED NANNETTE Miscellaneous Medication 0 ml 10/31/22 06:00 Tropicam./Phenyleph. (1/2.5%) 5 Ml Btl OS 11/30/22 05:59 DIRECTED NANNETTE Tetracaine HCl 0 ml 10/31/22 06:00 Tetracaine 0.5% 4 Ml Btl OS 11/30/22 05:59 DIRECTED NANNETTE PFSH Active Problems Active Problems: Problem Status Onset Code Posterior subcapsular age-related cataract of left eye H25.042 Nuclear age-related cataract, left eye H25.12 Prediabetes R73.03 Hyperlipidemia E78.5 GERD (gastroesophageal reflux disease) K21.9 Localized osteoarthritis of right knee M17.11 Painless jaundice R17 Cholelithiasis K80.20 Medical History Medical History Tony esophagus Esophageal obstruction (11/15/15) Hx of breast cancer remission for 30 years Major depression Surgical History Surgical History H/O left mastectomy History of colonoscopy History of esophagogastroduodenoscopy (EGD) History of tonsillectomy and adenoidectomy Hx of cholecystectomy Tobacco Smoking/Tobacco Use Status: Former Tobacco Use Alcohol Alcohol Intake: current Alcohol intake frequency: a few times a week Substance Use Substance use: Never Substance use type: does not use Vital Signs and Lab Results Vital Signs Most Recent Vital Signs in EMR: Temp Pulse Resp BP Pulse Ox 36.5 C 63 16 142/69 H 99 10/31/22 09:45 10/31/22 09:45 10/31/22 09:45 10/31/22 09:45 10/31/22 09:45 Lab Results Blood Type / Crossmatch: No Data to Display Complete Blood Count: No Data to Display Complete Metabolic Panel: No Data to Display Liver Function Panel: No Data to Display Coagulation Panel: No Data to Display Cardiac Panel: No Data to Display Arterial Blood Gas: No Data to Display Venous Blood Gas: No Data to Display Pancreas Panel: No Data to Display Thyroid Panel: No Data to Display Infectious Disease: No Data to Display Blood Cultures: No Data to Display Toxicology Panel: No Data to Display Anesthesia Assessment and Plan Anesthesia History Personal History: No History of Anesthesia Complications Family History: Family History Unknown Exercise Tolerance Exercise Tolerance: Metabolic Equivalents>4 Cardiac & Pulmonary Exam Cardiac Exam: Normal S1/S2 Heart Sounds Pulmonary Exam: Clear Bilateral Breath Sounds Implantable Cardiac Device Does patient have a Pacemaker or an ICD?: No Airway Exam Known Difficult Airway: No Mallampati Class: 3 Mouth Opening: Normal (> 3cm) Thyromental Distance: Greater than 3 cm Neck Range of Motion: Full ROM Neck Circumference: Normal Teeth Condition: Normal Dentition ASA Classification ASA Score: ASA 2 Emergency Case?: No NPO Status NPO Status: NPO Clears >2 hours, Solids >8 hours Anesthesia Plan Resuscitation Status: Full Code Anesthesia Technique: MAC Anesthesia Airway Planned: Natural Airway Monitors Used: Standard Monitors Preoperative Comments:: 72 yo female for cataract removal. Would like MKO Sig PMHx: preDM, GERD, barretts, depression, breast CA with mastectomy. Previous Anes: - mariah, glide 3 grade 1, mac 3 grade 3, easy mask.
[2022-10-31 09:45] VITALS: BP 142/69; PULSE 63; RESP 16; TEMP 36.5; O2SAT 99
[2022-10-31] MEDS: Tropicam./Phenyleph. (1/2.5%) 5 ML BTL OS ×3 (09:52→10:09)
[2022-10-31 09:57] VITALS: BMI 30.7
[2022-10-31] MEDS: Tetracaine 0.5% 4 ML BTL OS (11:10)
[2022-10-31] MEDS: Povidone-Iodine Ophth 30 ML BTL (11:10)
[2022-10-31] MEDS: Duovisc Viscoelastic System EACH 1 EACH (11:12)
[2022-10-31] MEDS: Lidocaine 1% Pres-Free 5 ML VIAL (11:12)
[2022-10-31] MEDS: Phenylephrine/Lidocaine (15/10) MG/ML 1 ML VIAL (11:12)
[2022-10-31] MEDS: Balanced Salt Soln.-PLUS 500 ML BAG OP (11:12)
[2022-10-31] MEDS: Trypan Blue 0.06% 0.5 ML SYR (11:17)
[2022-10-31 11:30] VITALS: BP 133/60; PULSE 65; RESP 16; TEMP 36.6; O2SAT 98
--- NOTE | 2022-10-31 11:31 | ROE_ITS ---
Date of service: 10/31/22 Time of Service: 11:31 Operative Note Operative Note DATE OF PROCEDURE: 10/31/22 PRE-OP DIAGNOSIS: Nuclear/posterior subcapsular cataract, left eye POST-OP DIAGNOSIS: same PROCEDURE: Cataract extraction using phacoemulsification with intraocular lens implant, left eye SURGEON: Ok Bianchi ANESTHESIA TYPE: Local By Surgeon and MAC Refer to Anesthesia Record PATHOLOGY: none sent COMPLICATIONS: None Patient was transported to: same day Patient's condition: stable Implants: Serge and Serge Tecnis Eyhance [id number] Indications: Progressive decreased vision due to cataract, left eye Procedure Description: CATARACT SURGERY OPERATIVE REPORT PREOPERATIVE DIAGNOSIS: 1. Nuclear/posterior subcapsular cataract, left eye POSTOPERATIVE DIAGNOSIS: Same OPERATION: 1. Cataract extraction using phacoemulsification with posterior chamber intraocular lens implant, left eye. IOL: IOL Education Research Analyst/Model: Serge & Serge Tecnis Eyhance DIB00 IOL Power: + 25.0 diopters IOL Serial Number: [id number] Optic Diameter: 6.0 mm Haptic/Overall Diameter: 13.0 mm PHACO INFO: Usman Good Dealurion Vision System with OZil and Active Fluidics Cumulative Dispersed Energy (CDE): 13.26 seconds SURGEON: Ok Bianchi MD, STEPHEN ANESTHESIA: Monitored [facility] ([facility]), with local sub-tenon's anesthetic infiltration COMPLICATIONS: None SPECIMENS: None INDICATIONS FOR PROCEDURE: The patient is a 72-year-old lady with history of diminished visual acuity in her left eye secondary to the development of nuclear/posterior subcapsular cataract. She is significantly symptomatic that she desires cataract surgery attempt to improve and maximize her vision. The option of cataract surgery was offered to the patient and she wished to proceed. See office notes for detailed information. PROCEDURE: The correct surgical eye was identified and marked as the left eye and the pupil was dilated in the preoperative area using mydriatics and cycloplegics. The dilated pupil size was 7.0 mm. Oral sedation was administered in the form of one half of an Imprimis MKO Melt (midazolam 3mg/ketamine 25mg/ondansetron 2mg). The patient was brought to the operating room where cardiopulmonary monitoring was instituted and surgical time-out was performed, confirming the correct operative eye and IOL power. Topical anesthesia was administered and ophthalmic povidone-iodine 5% was instilled into the conjunctival fornices. The vadim-ocular area was prepped with Betadine 10% solution and draped in the usual sterile fashion for intraocular surgery, including an aperture drape. A Tegaderm transparent film dressing was cut in half and used to cover the lashes and lid margins. Care was taken to sequester the lashes and lid margins under the Tegaderm dressing. A lid speculum was placed between the lids of the operative eye and the Usman LuxOR Revalia operating microscope was maneuvered into position. Kylie scissors were then used to make a conjunctival buttonhole approximately 6mm posterior to the limbus in the inferonasal quadrant. Blunt dissection was carried out to expose bare sclera, and a blunt-tipped sub-tenon?s anesthesia cannula was introduced and passed posteriorly along the globe where non- preserved plain lidocaine was injected into posterior sub-Tenon?s space. A sideport knife was used to make a paracentesis port. VisionBlue was injected into the anterior chamber and allowed to sit for 20 seconds. Intraocular phenylephrine/lidocaine was injected into the anterior chamber.. The anterior chamber was filled with viscoelastic. A keratome knife was used to construct a 2-plane near-clear corneal tunnel extending 2.0mm into clear cornea. A flap was raised on the anterior capsule and capsulorhexis forceps were used to complete a continuous curvilinear capsulorhexis of 5.0 mm. Balanced salt solution was then used to perform cortical cleaving hydrodissection and nuclear hydrodelineation until the lens could be freely rotated within the capsular bag. The lens nucleus was then disassembled and removed within the capsular bag and iris plane using phacoemulsification. Residual cortical material was removed using the irrigation/aspiration handpiece. The posterior capsule was carefully polished to remove as much residual lens epithelial cells as safely possible. The capsular bag was then inflated and the anterior chamber deepened with viscoelastic. The lens implant described above was inserted into the capsular bag using the Serge and Serge Simplicity pre-loaded injector. A Kuglen hook was used to dial the IOL into position. Residual viscoelastic was then removed first from posterior to the IOL, then from the anterior chamber using the I/A handpiece. The lens implant was noted to center nicely within the capsular bag. The incisions were stromally hydrated, and the anterior chamber was reformed using BSS. Then 0.5cc of moxifloxacin 1.0mg/ml were injected into the capsular bag and anterior chamber. The incisions were checked with a Weck spear and found to be secure. Several drops of ophthalmic povidone-iodine 5% were then applied to the eye followed by two drops of Imprimis combination prednisolone/moxifloxacin/nepafenac solution. The drapes were removed and a clear plastic protective eye shield was placed over the eye. The patient was then returned to Same Day Surgery in stable condition.
--- NOTE | 2022-10-31 11:31 | W.PM.DSUDISC ---
Date of service: 10/31/22 Time of Service: 11:31 Discharge Plan Disposition Patient Disposition: Home Discharge Details Attending Provider: Ok Bianchi Primary Care Provider: Mitch Ceron Home Meds and New Rx's Prescriptions: No Action pindolol 5 mg tablet 5 mg PO BID aripiprazole 5 mg tablet 5 mg PO DAILY venlafaxine 150 MG capsule,extended release 24hr 150 mg PO BID pantoprazole 40 mg Tablet,Delayed Release (Dr/Ec) 40 mg PO DAILY Discharge Instructions Stand Alone Forms: Post-op Topical Cataract, Sp [place] (DSU) Discharge Orders Discharge Orders: Discharge Order (Routine); Ordered 10/31/22 Ordered By: Ok Bianchi DS: Diagnosis Discharge Diagnosis (1) Posterior subcapsular age-related cataract of left eye: Status: Resolved (2) Nuclear age-related cataract, left eye: Status: Resolved
--- NOTE | 2022-10-31 11:36 | W.ANESPOSTOP ---
Postoperative Evaluation Date, Time and Location Date Performed: 10/31/22 Time Performed: 11:37 Patient Location: Day Surgery Unit Vital Signs Most Recent Imported Vital Signs: Most Recent Vital Signs Temp Pulse Resp BP Pulse Ox 36.6 C 65 16 133/60 98 10/31/22 11:30 10/31/22 11:30 10/31/22 11:30 10/31/22 11:30 10/31/22 11:30 Pain Score Most Recent Pain Score: Most Recent Pain Score Pain Level 0 10/31/22 11:30 Assessment Mental Status: Awake (Alert & Oriented to Patient Baseline) Airway and Respiratory Function: Patent airway with normal (patient baseline) respiratory exam Cardiovascular Function: Hemodynamically Stable Hydration Status: Adequately Hydrated Nausea & Vomiting: No Nausea or Vomiting Pain: Pt. Denies Any Pain Peripheral Nerve Block: Patient did not receive a nerve block
[2022-10-31 12:03] VITALS: BP 131/63; PULSE 65; RESP 16; TEMP 36.3; O2SAT 100
== END 2022-10-31 12:10 | disposition home or self-care (01) ==
PROVIDERS: PCP Family Medicine; Visit Provider Ophthalmology
PROC: (CPT 66984; principal; 2022-10-31 12:30)
DX: H25.042 Posterior subcapsular polar age-related cataract, left eye (principal); H25.12 Age-related nuclear cataract, left eye; K21.9 Gastro-esophageal reflux disease without esophagitis
CPT/HCPCS: 66984; V2632

== ENCOUNTER 2022-11-14 10:07 | Day surgery (SDC) | payer MEDICARE, BC, SELFPAY ==
[2022-11-14] MEDS: Tropicam./Phenyleph. (1/2.5%) 5 ML BTL OD ×2 (10:38→10:51)
[2022-11-14 10:41] VITALS: BP 162/68; PULSE 61; RESP 16; TEMP 36.5; O2SAT 98
--- NOTE | 2022-11-14 10:44 | W.ANESPRE ---
General Info Date of Service Date Performed: 11/14/22 Height: 5 ft 4 in Weight: 87.9 kg Body Mass Index (BMI): 33.3 Surgical Procedure: Operation Date: 11/14/22 13:25 Proposed Procedure Side Surgeon p Cataract Extraction with IOL Implant Right Ok Bianchi MD Meds Allergies and Home Medications Allergies Allergy/AdvReac Type Severity Reaction Status Date / Time metronidazole [From Flagyl] AdvReac Unknown Neuropathy Verified 11/13/22 11:59 Home Medication Medication Instructions Recorded venlafaxine 150 mg 150 mg PO BID 03/24/16 capsule,extended release 24 hr aripiprazole 5 mg tablet 5 mg PO DAILY 12/12/21 pindolol 5 mg tablet 5 mg PO BID 12/12/21 pantoprazole 40 mg tablet,delayed 40 mg PO DAILY 01/10/22 release Current Visit Medications: Current Medications Generic Name Dose Route Start Last Admin Trade Name Freq PRN Reason Stop Dose Admin Acetaminophen 1,000 mg 11/14/22 06:00 Acetaminophen 500 Mg Tab PO 12/14/22 05:59 Q4H PRN PRN Balanced Salt Solution 500 ml 11/14/22 06:00 Balanced Salt Soln.-Plus 500 Ml Bag OP 12/14/22 05:59 DIRECTED NANNETTE Miscellaneous Medication 0 ml 11/14/22 06:00 Prednisolone 1%, Moxifloxacin 0.5%, Nepafenac 0.1% 5ml Btl OD 12/14/22 05:59 DIRECTED NANNETTE Miscellaneous Medication 0 ml 11/14/22 06:00 11/14/22 10:38 Tropicam./Phenyleph. (1/2.5%) 5 Ml Btl OD 12/14/22 05:59 1 drp DIRECTED NANNETTE Administration Tetracaine HCl 0 ml 11/14/22 06:00 Tetracaine 0.5% 4 Ml Btl OD 12/14/22 05:59 DIRECTED NANNETTE PFSH Active Problems Active Problems: Problem Status Onset Code Nuclear age-related cataract, right eye H25.11 Cortical age-related cataract, right eye H25.011 Posterior subcapsular age-related cataract of left eye H25.042 Nuclear age-related cataract, left eye H25.12 Prediabetes R73.03 Hyperlipidemia E78.5 GERD (gastroesophageal reflux disease) K21.9 Localized osteoarthritis of right knee M17.11 Painless jaundice R17 Cholelithiasis K80.20 Medical History Medical History (Updated 11/13/22 @ 22:07 by Ok Bianchi MD) Tony esophagus Esophageal obstruction (11/15/15) Hx of breast cancer remission for 30 years Major depression Surgical History Surgical History H/O left mastectomy History of colonoscopy History of esophagogastroduodenoscopy (EGD) History of tonsillectomy and adenoidectomy Hx of cholecystectomy Tobacco Smoking/Tobacco Use Status: Former Tobacco Use Alcohol Alcohol Intake: current Alcohol intake frequency: a few times a week Substance Use Substance use: Never Substance use type: does not use Vital Signs and Lab Results Lab Results Blood Type / Crossmatch: No Data to Display Complete Blood Count: No Data to Display Complete Metabolic Panel: No Data to Display Liver Function Panel: No Data to Display Coagulation Panel: No Data to Display Cardiac Panel: No Data to Display Arterial Blood Gas: No Data to Display Venous Blood Gas: No Data to Display Pancreas Panel: No Data to Display Thyroid Panel: No Data to Display Infectious Disease: No Data to Display Blood Cultures: No Data to Display Toxicology Panel: No Data to Display Anesthesia Assessment and Plan Anesthesia History Personal History: No History of Anesthesia Complications Family History: No Family History of Anesthesia Complications Exercise Tolerance Exercise Tolerance: Metabolic Equivalents>4 Pertinent Negatives Pertinent Negatives: No Symptoms of GERD Cardiac & Pulmonary Exam Cardiac Exam: Normal S1/S2 Heart Sounds Pulmonary Exam: Clear Bilateral Breath Sounds Implantable Cardiac Device Does patient have a Pacemaker or an ICD?: No Airway Exam Known Difficult Airway: No Mallampati Class: 3 Mouth Opening: Normal (> 3cm) Thyromental Distance: Greater than 3 cm Neck Range of Motion: Full ROM Neck Circumference: Normal Teeth Condition: Normal Dentition ASA Classification ASA Score: ASA 2 Emergency Case?: No NPO Status NPO Status: NPO Clears >2 hours, Solids >8 hours Anesthesia Plan Resuscitation Status: Full Code Anesthesia Technique: MAC Anesthesia Airway Planned: Natural Airway Pain Management: Surgeon and patient request nerve block Monitors Used: Standard Monitors
[2022-11-14 10:45] VITALS: BMI 33.3
--- NOTE | 2022-11-14 10:52 | ANES.PREOP_ITS ---
General Info Height: 5 ft 4 in Weight: 87.9 kg Body Mass Index (BMI): 33.3 Surgical Procedure: Operation Date: 11/14/22 13:25 Proposed Procedure Side Surgeon p Cataract Extraction with IOL Implant Right Ok Bianchi MD Meds Allergies and Home Medications Allergies Allergy/AdvReac Type Severity Reaction Status Date / Time metronidazole [From Flagyl] AdvReac Unknown Neuropathy Verified 11/14/22 10:47 Home Medication Medication Instructions Recorded venlafaxine 150 mg 150 mg PO BID 03/24/16 capsule,extended release 24 hr aripiprazole 5 mg tablet 5 mg PO DAILY 12/12/21 pindolol 5 mg tablet 5 mg PO BID 12/12/21 pantoprazole 40 mg tablet,delayed 40 mg PO DAILY 01/10/22 release Current Visit Medications: Current Medications Generic Name Dose Route Start Last Admin Trade Name Freq PRN Reason Stop Dose Admin Acetaminophen 1,000 mg 11/14/22 06:00 Acetaminophen 500 Mg Tab PO 12/14/22 05:59 Q4H PRN PRN Balanced Salt Solution 500 ml 11/14/22 06:00 Balanced Salt Soln.-Plus 500 Ml Bag OP 12/14/22 05:59 DIRECTED NANNETTE Miscellaneous Medication 0 ml 11/14/22 06:00 Prednisolone 1%, Moxifloxacin 0.5%, Nepafenac 0.1% 5ml Btl OD 12/14/22 05:59 DIRECTED NANNETTE Miscellaneous Medication 0 ml 11/14/22 06:00 11/14/22 10:38 Tropicam./Phenyleph. (1/2.5%) 5 Ml Btl OD 12/14/22 05:59 1 drp DIRECTED NANNETTE Administration Tetracaine HCl 0 ml 11/14/22 06:00 Tetracaine 0.5% 4 Ml Btl OD 12/14/22 05:59 DIRECTED NANNETTE PFSH Active Problems Active Problems: Problem Status Onset Code Nuclear age-related cataract, right eye H25.11 Cortical age-related cataract, right eye H25.011 Posterior subcapsular age-related cataract of left eye H25.042 Nuclear age-related cataract, left eye H25.12 Prediabetes R73.03 Hyperlipidemia E78.5 GERD (gastroesophageal reflux disease) K21.9 Localized osteoarthritis of right knee M17.11 Painless jaundice R17 Cholelithiasis K80.20 Medical History Medical History Tony esophagus Esophageal obstruction (11/15/15) Hx of breast cancer remission for 30 years Major depression Surgical History Surgical History H/O left mastectomy History of colonoscopy History of esophagogastroduodenoscopy (EGD) History of tonsillectomy and adenoidectomy Hx of cholecystectomy Tobacco Smoking/Tobacco Use Status: Former Tobacco Use Alcohol Alcohol Intake: current Alcohol intake frequency: a few times a week Substance Use Substance use: Never Substance use type: does not use Details: pt reports drining 2 glasses of wine 11/13/22 Vital Signs and Lab Results Vital Signs Most Recent Vital Signs in EMR: Most Recent Vital Signs Temp Pulse Resp BP Pulse Ox 36.5 C 61 16 162/68 H 98 11/14/22 10:41 11/14/22 10:41 11/14/22 10:41 11/14/22 10:41 11/14/22 10:41 Lab Results Blood Type / Crossmatch: 2 No Data to Display Complete Blood Count: No Data to Display Complete Metabolic Panel: No Data to Display Liver Function Panel: No Data to Display Coagulation Panel: No Data to Display Cardiac Panel: No Data to Display Arterial Blood Gas: No Data to Display Venous Blood Gas: No Data to Display Pancreas Panel: No Data to Display Thyroid Panel: No Data to Display Infectious Disease: No Data to Display Blood Cultures: No Data to Display Toxicology Panel: No Data to Display Anesthesia Assessment and Plan Anesthesia History Personal History: No History of Anesthesia Complications Family History: No Family History of Anesthesia Complications Exercise Tolerance Exercise Tolerance: Metabolic Equivalents>4 Implantable Cardiac Device Does patient have a Pacemaker or an ICD?: No Airway Exam Known Difficult Airway: No Mallampati Class: 3 Mouth Opening: Normal (> 3cm) Thyromental Distance: Greater than 3 cm Neck Range of Motion: Full ROM Neck Circumference: Normal Teeth Condition: Normal Dentition Preoperative Comments:: 72 yo female for repeat cataract removal. had 1/2 MKO with previous. Sig PMHx: preDM, GERD, barretts, depression, breast CA with mastectomy. Previous Anes: - mariah, glide 3 grade 1, mac 3 grade 3, easy mask.
[2022-11-14] MEDS: Balanced Salt Soln.-PLUS 500 ML BAG OP (11:24)
[2022-11-14] MEDS: Tetracaine 0.5% 4 ML BTL OD (11:25)
[2022-11-14] MEDS: Duovisc Viscoelastic System EACH 1 EACH (11:26)
[2022-11-14] MEDS: Lidocaine 1% Pres-Free 5 ML VIAL (11:26)
[2022-11-14] MEDS: Phenylephrine/Lidocaine (15/10) MG/ML 1 ML VIAL (11:28)
[2022-11-14] MEDS: Povidone-Iodine Ophth 30 ML BTL (11:28)
[2022-11-14 11:46] VITALS: BP 115/60; PULSE 63; RESP 16; TEMP 36.6; O2SAT 98
--- NOTE | 2022-11-14 11:46 | W.PM.DSUDISC ---
Date of service: 11/14/22 Time of Service: 11:46 Discharge Plan Disposition Patient Disposition: Home Discharge Details Attending Provider: Ok Bianchi Primary Care Provider: Mitch Ceron Home Meds and New Rx's Prescriptions: No Action pindolol 5 mg tablet 5 mg PO BID aripiprazole 5 mg tablet 5 mg PO DAILY venlafaxine 150 MG capsule,extended release 24hr 150 mg PO BID pantoprazole 40 mg Tablet,Delayed Release (Dr/Ec) 40 mg PO DAILY Discharge Instructions Stand Alone Forms: Post-op Topical Cataract, Sp [place] (DSU) Discharge Orders Discharge Orders: Discharge Order (Routine); Ordered 11/14/22 Ordered By: Ok Bianchi DS: Diagnosis Discharge Diagnosis (1) Nuclear age-related cataract, right eye: Status: Resolved (2) Cortical age-related cataract, right eye: Status: Resolved
--- NOTE | 2022-11-14 11:48 | ROE_ITS ---
Date of service: 11/14/22 Time of Service: 11:48 Operative Note Operative Note DATE OF PROCEDURE: 11/14/22 PRE-OP DIAGNOSIS: Nuclear/cortical cataract, right eye POST-OP DIAGNOSIS: same PROCEDURE: Cataract extraction using phacoemulsification with intraocular lens implant, right eye SURGEON: Ok Bianchi ANESTHESIA TYPE: Local By Surgeon and MAC Refer to Anesthesia Record ESTIMATED BLOOD LOSS: 0 PATHOLOGY: none sent COMPLICATIONS: None Patient was transported to: same day Patient's condition: stable Implants: Serge & Serge Tecnis Eyhance [id number] Indications: Progressive visual loss due to cataract, right eye Procedure Description: CATARACT SURGERY OPERATIVE REPORT PREOPERATIVE DIAGNOSIS: 1. Nuclear/cortical cataract, right eye POSTOPERATIVE DIAGNOSIS: Same OPERATION: 1. Cataract extraction using phacoemulsification with posterior chamber intraocular lens implant, right eye. IOL: IOL Artificial Teeth Inspector/Model: Serge & Serge Tecnis Eyhance [id number] IOL Power: + 25.0 diopters IOL Serial Number: [id number] Optic Diameter: 6.0mm Haptic/Overall Diameter: 13.0mm PHACO INFO: [employer] Game Studiosurion Vision System with OZil and Active Fluidics Cumulative Dispersed Energy (CDE): 8.92 seconds SURGEON: Ok Bianchi MD, STEPHEN ANESTHESIA: Monitored Anesthesia Care (MAC), with local sub-tenon's anesthetic infiltration COMPLICATIONS: None SPECIMENS: None INDICATIONS FOR PROCEDURE: The patient is a 72-year-old female with history of diminished visual acuity in his right eye secondary to the development of nuclear/cortical cataract. She has already undergone cataract surgery in the left eye and is doing well postoperatively. She now presents for cataract surgery in the right eye. See office notes for detailed information. PROCEDURE: The correct surgical eye was identified and marked as the right eye and the pupil was dilated in the preoperative area using mydriatics and cycloplegics. The dilated pupil size was 7.0 mm. Oral sedation was administered in the form of an Imprimis MKO Melt (midazolam 3mg/ketamine 25mg/ondansetron 2mg). . The patient was brought to the operating room where cardiopulmonary monitoring was instituted and surgical time-out was performed, confirming the correct operative eye and IOL power. Topical anesthesia was administered and ophthalmic povidone-iodine 5% was instilled into the conjunctival fornices. The vadim-ocular area was prepped with Betadine 10% solution and draped in the usual sterile fashion for intraocular surgery, including an aperture drape. A Tegaderm transparent film dressing was cut in half and used to cover the lashes and lid margins. Care was taken to sequester the lashes and lid margins under the Tegaderm dressing. A lid speculum was placed between the lids of the operative eye and the Usman LuxOR Revalia operating microscope was maneuvered into position. Kylie scissors were then used to make a conjunctival buttonhole approximately 6mm posterior to the limbus in the inferonasal quadrant. Blunt dissection was carried out to expose bare sclera, and a blunt-tipped sub-tenon?s anesthesia cannula was introduced and passed posteriorly along the globe where non- preserved plain lidocaine was injected into posterior sub-Tenon?s space. A sideport knife was used to make a paracentesis port. Intraocular phenylephrine/lidocaine was injected into the anterior chamber. The anterior chamber was filled with viscoelastic. A keratome knife was used to construct a 2-plane clear corneal tunnel extending 2.0mm into clear cornea. A flap was raised on the anterior capsule and capsulorhexis forceps were used to complete a continuous curvilinear capsulorhexis of 5.0 mm. Balanced salt solution was then used to perform cortical cleaving hydrodissection and nuclear hydrodelineation until the lens could be freely rotated within the capsular bag. The lens nucleus was then disassembled and removed within the capsular bag and iris plane using phacoemulsification. Residual cortical material was removed using the I/A handpiece. The posterior capsule was carefully polished to remove as much residual lens epithelial cells as safely possible. The capsular bag was then inflated and the anterior chamber deepened with cohesive viscoelastic. The lens implant described above was inserted into the capsular bag using the Serge and Jade Simplicity pre- loaded injector. A Kuglen hook was used to dial the IOL into position. Residual viscoelastic was then removed first from posterior to the IOL, then from the anterior chamber using the I/A handpiece. The lens implant was noted to center nicely within the capsular bag. The incisions were stromally hydrated, and the anterior chamber was reformed using BSS. Then 0.5cc of moxifloxacin 1.0mg/ml were injected into the capsular bag and anterior chamber. The incisions were checked with a Weck spear and found to be secure. Several drops of ophthalmic povidone-iodine 5% were then applied to the eye followed by two drops of Imprimis combination prednisolone/moxifloxacin/nepafenac solution. The drapes were removed and a clear plastic protective eye shield was placed over the eye. The patient was then returned to Same Day Surgery in stable condition.
[2022-11-14 12:05] VITALS: BP 130/64; PULSE 60; RESP 96; TEMP 37.2; O2SAT 16
--- NOTE | 2022-11-14 12:50 | W.ANESPOSTOP ---
Postoperative Evaluation Date, Time and Location Date Performed: 11/14/22 Time Performed: 12:50 Patient Location: Day Surgery Unit Vital Signs Most Recent Imported Vital Signs: Most Recent Vital Signs Temp Pulse Resp BP Pulse Ox 37.2 C 60 96 H 130/64 16 L 11/14/22 12:05 11/14/22 12:05 11/14/22 12:05 11/14/22 12:05 11/14/22 12:05 Pain Score Most Recent Pain Score: Most Recent Pain Score Pain Level 0 11/14/22 12:05 Assessment Mental Status: Awake (Alert & Oriented to Patient Baseline) Airway and Respiratory Function: Patent airway with normal (patient baseline) respiratory exam Cardiovascular Function: Hemodynamically Stable Hydration Status: Adequately Hydrated Nausea & Vomiting: No Nausea or Vomiting Pain: Pt. Denies Any Pain Peripheral Nerve Block: Patient did not receive a nerve block
== END 2022-11-14 12:19 | disposition home or self-care (01) ==
LOC: SUR 10:07
PROVIDERS: PCP Family Medicine; Visit Provider Ophthalmology
PROC: (CPT 66984; principal; 2022-11-14 13:15)
DX: H25.11 Age-related nuclear cataract, right eye (principal); H25.011 Cortical age-related cataract, right eye; K21.9 Gastro-esophageal reflux disease without esophagitis; Z98.42 Cataract extraction status, left eye
CPT/HCPCS: 66984; V2632

== ENCOUNTER 2023-09-16 13:39 | Outpatient (REF) | payer MEDICARE, BC, SELFPAY ==
[2023-09-16 14:44] LABS: Abs Immature Grans 0.01 10^3/uL (0.0-0.06); Absolute Basophil Count 0.05 10^3/uL (0.0-0.2); Absolute Eosinophil Count 0.24 10^3/uL (0.0-0.7); Absolute Lymphocyte Count 1.81 10^3/uL (1.2-3.4); Absolute Monocyte Count 0.36 10^3/uL (0.1-0.8); Absolute Neutrophil Count 4.17 10^3/uL (1.2-6.7); Basophils % 0.8 %; Eosinophils % 3.6 %; HCT 41.2 % (36.0-46.0); HGB 13.5 g/dL (11.2-15.7); Immature Grans % 0.2 %; Lymphocytes % 27.3 %; MCH 29.6 pg (27.0-33.0); MCHC 32.8 % (32.0-36.0); MCV 90 fL (80-95); MPV 9.2 fL (8.0-11.0); Monocytes % 5.4 %; Neutrophils % 62.7 %; Platelet Count 215 10^3/uL (130-400); RBC 4.56 10^6/uL (3.93-5.22); RDW 12.2 % (11.7-14.6); RDW-SD 40.2 fL; WBC 6.64 10^3/uL (4.4-10.8)
[2023-09-16 15:07] LABS: Hemoglobin A1C 6.1 % (<5.7)
[2023-09-16 15:15] LABS: ALT 35 U/L (14-59); AST 19 U/L (15-37); Alkaline Phosphatase 78 U/L (46-116); Anion Gap 8.5 mmol/L (3-11); BUN 14 mg/dL (7-18); Bilirubin, Total 0.39 mg/dL (0.2-1.0); CO2 27.5 mmol/L (21.0-32.0); CREATININE 0.6 mg/dL (0.55-1.02); Calcium 9.5 mg/dL (8.5-10.1); Chloride 103 mmol/L (98-107); Estimated GFR 93.55 (mL/min/1.73m2); Glucose 91 mg/dL (74-106); LDL CHOLESTEROL 198 mg/dL (<100); Potassium 4.6 mmol/L (3.5-5.1); Sodium 139 mmol/L (136-145)
== END 2023-09-16 13:40 | disposition home or self-care (01) ==
LOC: NCHCN 13:39
PROVIDERS: PCP Family Medicine; Visit Provider Family Medicine
DX: E78.5 Hyperlipidemia, unspecified (principal); R73.03 Prediabetes; K21.9 Gastro-esophageal reflux disease without esophagitis
CPT/HCPCS: 80053; 83721; 83036; 85025

== ENCOUNTER 2024-04-22 00:13 | Outpatient (CLI) | payer MEDICARE, BC, SELFPAY ==
--- NOTE | 2024-04-22 11:05 | DI.RAD_ITS ---
Exam(s) XR KNEE LT 3V AP,LAT,CROW EXAM: XR KNEE LT 3V AP,LAT,CROW CLINICAL HISTORY: Lt knee pain, M25.562. TECHNIQUE: 2D digital imaging was performed of the left knee. Three images were obtained. Merchant ,AP, lateral and PA tunnel views were obtained. COMPARISON: CR XR KNEE RT 3V AP,LAT,CROW from 04/22/2024 FINDINGS: BONES: No acute fracture is present. No bony destructive lesion is seen. JOINTS: There is moderate narrowing of the medial femoral tibial joint. There osteophytes seen in th e medial femoral tibial joint and the patellofemoral joint. There is a small joint effusion. No loo se body. SOFT TISSUE: Normal. IMPRESSION: [id number] osteoarthritis of the left knee. DATA REPOSITORY: RADIATION DOSE DELIVERED:
--- NOTE | 2024-04-22 11:10 | DI.RAD_ITS ---
Exam(s) XR KNEE RT 3V AP,LAT,CROW EXAM: XR KNEE RT 3V AP,LAT,CROW CLINICAL HISTORY: Pain in rt knee, M25.561. TECHNIQUE: 2D digital imaging was performed of the right knee. Three views obtained. AP, lateral an d PA tunnel views were obtained. COMPARISON: CR XR KNEE RT 3V AP,LAT,CROW from 11/23/2020 FINDINGS: BONES: No acute fracture is present. No bony destructive lesion is seen. There is an enthesophyte at the superior patella. JOINTS: There is marked narrowing in the medial femoral tibial joint. There osteophytes seen in the medial femoral tibial patellofemoral joint. There is a small joint effusion present. SOFT TISSUE: Normal. IMPRESSION: Moderate osteoarthritis of the right knee. DATA REPOSITORY: RADIATION DOSE DELIVERED:
== END 2024-04-22 00:33 ==
LOC: DI 00:13
PROVIDERS: PCP Family Medicine; Visit Provider Family Medicine
DX: M17.0 Bilateral primary osteoarthritis of knee (principal)
CPT/HCPCS: 73562

== ENCOUNTER 2024-10-06 21:19 | Outpatient (REF) | payer MEDICARE, BC, SELFPAY ==
[2024-10-06 21:46] LABS: HCT 39.0 % (36.0-46.0); HGB 13.0 g/dL (11.2-15.7); MCH 29.5 pg (27.0-33.0); MCHC 33.3 % (32.0-36.0); MCV 88 fL (80-95); MPV 9.4 fL (8.0-11.0); Platelet Count 249 10^3/uL (130-400); RBC 4.41 10^6/uL (3.93-5.22); RDW 12.2 % (11.7-14.6); RDW-SD 39.5 fL; WBC 6.96 10^3/uL (4.4-10.8)
[2024-10-06 22:10] LABS: ALT 24 U/L (14-59); AST 20 U/L (15-37); Albumin 4.0 g/dL (3.4-5.0); Alkaline Phosphatase 88 U/L (46-116); Anion Gap 8.4 mmol/L (3-11); BUN 16 mg/dL (7-18); Bilirubin, Total 0.3 mg/dL (0.2-1.0); CO2 26.6 mmol/L (21.0-32.0); Calcium 9.4 mg/dL (8.5-10.1); Chloride 103 mmol/L (98-107); Estimated GFR 97.14 (mL/min/1.73m2); Glucose 87 mg/dL (74-106); LDL CHOLESTEROL 178 mg/dL (<100); Potassium 4.3 mmol/L (3.5-5.1); Sodium 138 mmol/L (136-145); Total Protein 7.0 g/dL (6.4-8.2)
[2024-10-06 22:23] LABS: Hemoglobin A1C 5.8 % (<5.7)
== END 2024-10-06 21:20 | disposition home or self-care (01) ==
LOC: NCHCN 21:19
PROVIDERS: PCP Family Medicine; Visit Provider Family Medicine
DX: E78.5 Hyperlipidemia, unspecified (principal); R73.03 Prediabetes; K22.70 Barrett's esophagus without dysplasia
CPT/HCPCS: 80053; 83721; 85027; 83036

== ENCOUNTER 2024-11-15 02:16 | Outpatient (CLI) | payer MEDICARE, BC, SELFPAY ==
--- NOTE | 2024-11-15 13:23 | DI.RAD_ITS ---
Exam(s) XR FOOT RT COMPLETE EXAM: XR FOOT RT COMPLETE CLINICAL HISTORY: Right foot painful cyst,RT GANGLION,M79.671,M67.471. TECHNIQUE: 2D digital imaging was performed of the right foot. Three images were obtained. AP, oblique and lateral views were obtained. COMPARISON: No exams were available for comparison FINDINGS: BONES: No acute fracture is present. No bony destructive lesion is seen. JOINTS: No dislocation present. There are mild degenerative changes seen in the interphalangeal joints, particularly the DIP joint of the 3rd toe. SOFT TISSUE: There is focal soft tissue swelling adjacent to the base of the 5th metatarsal. No associated soft tissue calcification or underlying bony destruction is seen. IMPRESSION: Focal soft tissue swelling adjacent to the base of the 5th metatarsal without underlying bone involvement. Ultrasound or MRI may be considered for further characterization. DATA REPOSITORY: RADIATION DOSE DELIVERED:
== END 2024-11-15 02:36 ==
LOC: DI 02:16
PROVIDERS: PCP Family Medicine; Visit Provider Podiatrist
DX: M79.671 Pain in right foot (principal); M67.471 Ganglion, right ankle and foot
CPT/HCPCS: 20612; 73630

== ENCOUNTER → 2024-12-07 08:47 | Outpatient (BNVA) | payer MEDICARE, BC, SELFPAY | PROVIDERS: PCP Family Medicine; Referring Provider Family Medicine; Visit Provider Podiatrist | DX: M67.471 Ganglion, right ankle and foot (principal); M79.671 Pain in right foot; B35.1 Tinea unguium | CPT/HCPCS: 99213 ==